=== PATIENT | female | born 1985 | race African-American/Black ===

== ENCOUNTER 2021-06-01 17:03 | Emergency (ER) | payer OTHER, MEDICAID, SELFPAY ==
--- NOTE | ~2021-06-01 | CT_ITS ---
EXAMINATION: CT ABDOMEN AND PELVIS WITH CONTRAST CLINICAL INFORMATION: Right-sided abdominal pain and bloating COMPARISON: None TECHNIQUE: Multidetector volumetric images were obtained from the superior aspect of the liver through the pubic symphysis following administration 85 mL of Omnipaque 350 intravenous contrast. Sagittal and coronal reformatted images were obtained on the technologist's workstation. Oral contrast: No This CT examination was performed using dose optimization techniques as appropriate, variously including the following: *Automated exposure control *Adjustment of mA and/or kV according to patient size (this includes techniques or standardized protocols for targeted exams where dose is matched to indication/reason for exam; i.e. extremities or head) *Use of iterative reconstruction technique DLP: 469 mGy-cm FINDINGS: LUNG BASES: The visualized lung bases are unremarkable. LIVER, GALLBLADDER, AND BILIARY TREE: The liver is normal in size, shape, and attenuation. No focal hepatic lesion or biliary ductal dilatation is present. Gallbladder unremarkable. PANCREAS: Unremarkable. SPLEEN: Unremarkable. ADRENAL GLANDS: Unremarkable. KIDNEYS AND URETERS: The kidneys are normal in size, shape, and attenuation. No hydronephrosis, hydroureter, or calculi seen. No perinephric stranding. BLADDER: Unremarkable. GASTROINTESTINAL TRACT: No intestinal obstruction or inflammation. Moderate stool present throughout the colon. Normal appendix. ABDOMINAL WALL: No significant hernia is appreciated. LYMPH NODES: Normal. VASCULAR: Unremarkable. PELVIC VISCERA: Uterus and adnexa unremarkable. OSSEOUS STRUCTURES: Unremarkable. CT/CT abdomen pelvis w con IMPRESSION: No acute findings within the abdomen or pelvis. Moderate constipation.
[2021-06-01 17:42] VITALS: BP 130/78; PULSE 69; RESP 18; TEMP 36.6; O2SAT 100; BMI 26.6
[2021-06-01 18:39] LABS: Hematocrit 37.4 % (37.0-47.0); Hemoglobin 12.6 g/dl (12.0-16.0); Mean Corpuscular HGB Conc 33.7 g/dl (31.0-35.0); Mean Corpuscular Hemoglobin 28.9 pg (27.0-33.0); Mean Corpuscular Volume 85.8 fL (80.0-98.0); Mean Platelet Volume 11.2 fL (9.4-12.3); Platelet Count 217 X10*3/uL (160-400); Red Blood Count 4.36 X10*6/uL (4.20-5.50); Red Cell Distribution Width 12.6 % (11.0-16.0); WBC ABN SCTR FOR CBC 1
[2021-06-01 18:45] LABS: Appearance Urine CLEAR; Color Urine YELLOW; Glucose Urine UA NEG (NEG); Leukocyte Esterase Urine NEG (NEG); Nitrite Urine NEG (NEG); PH 6.5 (5.0-8.0); Urine Blood NEG (NEG); Urine Ketones NEG (NEG); Urine Protein NEG (NEG-TRACE)
[2021-06-01 18:51] LABS: Alanine Aminotransferase 14 U/L (0-31); Albumin Level 4.2 g/dL (3.5-5.0); Alkaline Phosphatase 58 U/L (39-117); Anion Gap 12 (12-20); Aspartate Amino Transferase 19 U/L (5-31); Bilirubin Total 0.5 mg/dL (0.0-1.0); Blood Urea Nitrogen 7 mg/dL (9-16); Calcium 9.8 mg/dL (8.4-10.2); Carbon Dioxide 27 mmol/L (22-29); Chloride 105 mmol/L (96-108); Creatinine Clr Calc Pharmacy 91.7; Estimated Glomerular Filt Rate > 60; Glucose Random 85 mg/dL (60-115); Potassium 4.2 mmol/L (3.3-5.1); Sodium 140 mmol/L (135-145); Total Protein 7.6 g/dL (6.5-8.0)
[2021-06-01 19:25] LABS: White Blood Count 4.2 X10*3/uL (4.8-10.8)
[2021-06-01 19:27] LABS: Band Neutrophils Percent 1 % (3-5); Eosinophils Percent Manual 1 % (0-4); Large Platelet PRESENT; Lymphocytes Absolute Manual 1.7 X10*3/uL (1.2-4.9); Lymphocytes Percent Manual 40 % (20-40); Monocytes Absolute Manual 0.4 X10*3/uL (0.1-1.2); Monocytes Percent Manual 9 % (2-11); Neutrophils Absolute Manual 2.1 X10*3/uL (2.0-8.3); Neutrophils Percent Manual 49 % (45-73); Platelet Estimate NORMAL (NORMAL); Platelet Morphology Comment NORMAL; RBC Morphology NOTED; Target Cells 1+ (5-14) /OIF
[2021-06-02 00:12] LABS: Lipase 40 U/L (8-78)
--- NOTE | 2021-06-02 00:32 | ED.ABDPAIN ---
HPI - Abdominal Pain General Chief Complaint: Abdominal Pain <MARVIN Pretty Last Filed: 06/02/21 02:05> Stated Complaint: abd pain <MARVIN Pretty Last Filed: 06/02/21 02:05> Time Seen by Provider: 06/01/21 23:36 <MARVIN Pretty Last Filed: 06/02/21 02:05> Source: patient and optometric technologist <MARVIN Pretty Last Filed: 06/02/21 02:05> Mode of arrival: ambulatory <MARVIN Pretty Last Filed: 06/02/21 02:05> Limitations: language barrier <MARVIN Pretty Last Filed: 06/02/21 02:05> History of Present Illness HPI narrative: 36-year-old female previously healthy here with complaints of intermittent abdominal pain which is generalized more focal in the right lower abdomen for the last 2 weeks. no nausea, vomiting, diarrhea. she does have intermittent constipation but moved her bowels yesterday which was normal. <MARVIN Pretty Last Filed: 06/02/21 02:05> Related Data Home Medications: Previous Rx's Medication Instructions Recorded docusate sodium 100 mg capsule 100 mg PO BID #60 cap 06/02/21 (Colace) lactulose 10 gram/15 mL oral 10 g (15 mL) PO DAILY PRN #90 ml 06/02/21 solution polyethylene glycol 3350 17 gram 17 g PO BID #30 ea 06/02/21 oral powder packet (Miralax) <MARVIN Pretty Last Filed: 06/02/21 02:05> Allergies/Adverse Reactions: Allergies Allergy/AdvReac Type Severity Reaction Status Date / Time ibuprofen Allergy Mild Unknown Verified 06/01/21 23:55 Iodinated Contrast Media AdvReac Hives Verified 06/02/21 02:19 <MARVIN Pretty Last Filed: 06/02/21 02:05> Review of Systems Review of Systems Yes all other systems are reviewed and are negative <MARVIN Pretty Last Filed: 06/02/21 02:05> Constitutional: Reports no additional constitutional complaints, Denies body ache(s), Denies chills, Denies fever(s), Denies headache(s) and Denies weakness <Honey Kothari NP - Last Filed: 06/02/21 02:05> Eyes: Reports no additional eye complaints and Denies change in vision <Honey Kothari NP - Last Filed: 06/02/21 02:05> Reports system reviewed and no additional complaints, except as documented, Denies dizziness, Denies headache(s), Denies nasal congestion, Denies nasal discharge and Denies neck pain <Honey Kothari NP - Last Filed: 06/02/21 02:05> Cardiovascular: Reports no additional cardiovascular complaints, Denies chest pain, Denies leg edema and Denies dyspnea <Honey Kothari NP - Last Filed: 06/02/21 02:05> Respiratory: Reports no additional respiratory complaints, Denies cough and Denies dyspnea <Honey Kothari NP - Last Filed: 06/02/21 02:05> Gastrointestinal: Reports no additional gastrointestinal complaints, Reports abdominal pain, Reports constipation, Denies diarrhea, Denies nausea and Denies vomiting <Honey Kothari NP - Last Filed: 06/02/21 02:05> Genitourinary: Reports no additional female genitourinary complaints and Denies urinary incontinence <Honey Kothari NP - Last Filed: 06/02/21 02:05> Musculoskeletal: Reports no additional musculoskeletal complaints, Denies back pain, Denies arthralgias, Denies joint swelling, Denies neck pain, Denies numbness and Denies tingling <Honey Kothari NP - Last Filed: 06/02/21 02:05> Skin/Breast: Reports system reviewed and no additional complaints, except as docu and Denies rash <Honey Kothari NP - Last Filed: 06/02/21 02:05> Reports system reviewed and no additional complaints, except as documented, Denies Abnormal speech present, Denies dizziness, Denies headache(s), Denies numbness, Denies tingling and Denies weakness <Honey Kothari NP - Last Filed: 06/02/21 02:05> Physical Exam Vital Signs: Vital Signs: Last Vital Signs Temp 97.9 F 06/01/21 17:42 Pulse 69 06/01/21 17:42 Resp 18 06/01/21 17:42 BP 130/78 06/01/21 17:42 Pulse Ox 100 06/01/21 17:42 BMI result Body Mass Index 26.6 <Honey Kothari NP - Last Filed: 06/02/21 02:05> Vital Signs: Last Vital Signs Temp 97.9 F 06/01/21 17:42 Pulse 69 06/01/21 17:42 Resp 18 06/01/21 17:42 BP 130/78 06/01/21 17:42 Pulse Ox 100 06/01/21 17:42 BMI result Body Mass Index 26.6 <Cora Zamora MD - Last Filed: 06/02/21 02:47> Const: General: cooperative, healthy appearing, comfortable and no acute distress <Honey Kothari NP - Last Filed: 06/02/21 02:05> Orientation/consciousness: patient oriented x3 <Honey Kothari NP - Last Filed: 06/02/21 02:05> Limitations: no limitations <Honey Kothari NP - Last Filed: 06/02/21 02:05> HENMT: Head: Yes normal to inspection <Honey Kothari NP - Last Filed: 06/02/21 02:05> Ears: hearing grossly normal bilaterally <Honey Kothari NP - Last Filed: 06/02/21 02:05> General nose exam: Normal external nose present <Honey Kothari NP - Last Filed: 06/02/21 02:05> Face and sinus: Yes normal facial exam <Honey Kothari NP - Last Filed: 06/02/21 02:05> Mouth: Normal oral and palatal mucosa present <Honey Kothari NP - Last Filed: 06/02/21 02:05> Throat: Yes posterior oropharynx normal <Honey Kothari NP - Last Filed: 06/02/21 02:05> Eyes: General: appearance normal, both eyes and all related structures <Honey Kothari NP - Last Filed: 06/02/21 02:05> Pupils: Equal, round and reactive pupils present <Honey Kothari NP - Last Filed: 06/02/21 02:05> Neck: Neck: Yes normal visual inspection <Honey Kothari NP - Last Filed: 06/02/21 02:05> Chest: Chest palpation & inspection: normal inspection of the chest <Honey Kothari NP - Last Filed: 06/02/21 02:05> Resp: Effort & Inspection: normal respiratory effort <Honey Kothari NP - Last Filed: 06/02/21 02:05> Auscultation: clear to auscultation bilaterally <Honey Kothari NP - Last Filed: 06/02/21 02:05> Cardio: Rate: regular rate <Honey Kothari NP - Last Filed: 06/02/21 02:05> Rhythm: regular rhythm <Honey Kothari NP - Last Filed: 06/02/21 02:05> Peripheral pulses: Peripheral pulses 2+ throughout <Honey Kothari NP - Last Filed: 06/02/21 02:05> GI: Inspection: Yes normal to inspection <Honey Kothari NP - Last Filed: 06/02/21 02:05> Palpation (GI): Soft to palpation and Tenderness to palpation present (GI) ( Diffusely tender more focal in the right lower quadrant) <Honey Kothari NP - Last Filed: 06/02/21 02:05> Auscultation: normal bowel sounds <Honey Kothari NP - Last Filed: 06/02/21 02:05> Back/Spine/Pelvis: Thoracic/Lumbar Spine: thoracic and lumbar spine normal to inspection <Honey Kothari NP - Last Filed: 06/02/21 02:05> Skin: General skin exam: no rashes or lesions noted <Honey Kothari NP - Last Filed: 06/02/21 02:05> Neuro: General: patient oriented x3, no focal motor deficits and normal sensation to monofilament <Honey Kothari NP - Last Filed: 06/02/21 02:05> Cranial nerves: Yes Equal, round and reactive pupils present <Honey Kothari NP - Last Filed: 06/02/21 02:05> Cognition (Neuro): normal cognition <Honey Kothari NP - Last Filed: 06/02/21 02:05> Speech: No Abnormal speech present <Honey Kothari NP - Last Filed: 06/02/21 02:05> Gait exam (Neuro): Normal gait present <Honey Kothari NP - Last Filed: 06/02/21 02:05> Motor exam (neuro): 5/5 motor strength present throughout <Honey Kothari NP - Last Filed: 06/02/21 02:05> Extrem: General: Yes normal to inspection <Honey Kothari NP - Last Filed: 06/02/21 02:05> Course Course Course Narrative: 36-year-old female here with complaints of right-sided abdominal pain in addition to generalized abdominal pain over the last 2 weeks. On exam has tenderness diffusely but also pain in the right lower quadrant which is more focal with some guarding. Will need labs, UA, CT abdomen and pelvis 0200-Sign out pending ct to dr zamora <oHney Kothari NP - Last Filed: 06/02/21 02:05> MDM - Abdominal Pain Medical Records Attestation: I reviewed the patient's medical records. <Honey Kothari NP - Last Filed: 06/02/21 02:05> Lab Data Attestation: I reviewed the patient's lab results. <Honey Kothari NP - Last Filed: 06/02/21 02:05> Result diagrams: : 06/01/21 18:28 06/01/21 18:28 <Honey Kothari NP - Last Filed: 06/02/21 02:05> Labs: Lab Results 06/01/21 06/01/21 06/01/21 Range/Units 18:28 18:28 18:37 WBC 4.2 L (4.8-10.8) X10*3/uL RBC 4.36 (4.20-5.50) X10*6/uL Hgb 12.6 (12.0-16.0) g/dl Hct 37.4 (37.0-47.0) % MCV 85.8 (80.0-98.0) fL MCH 28.9 (27.0-33.0) pg MCHC 33.7 (31.0-35.0) g/dl RDW 12.6 (11.0-16.0) % Plt Count 217 (160-400) X10*3/uL MPV 11.2 (9.4-12.3) fL Immature Gran % (Auto) Cancelled Neut % (Auto) Cancelled Lymph % (Auto) Cancelled [place] % (Auto) Cancelled Eos % (Auto) Cancelled Baso % (Auto) Cancelled Lymph # (Auto) Cancelled [place] # (Auto) Cancelled Eos # (Auto) Cancelled Baso # (Auto) Cancelled Abs Immat Gran (auto) Cancelled Absolute Neuts (auto) Cancelled Absolute Nucleated RBC 0.000 (0.0-0.012) X10*3/uL Nucleated RBC % (auto) 0.0 (0.0-0.2) /100WBC Neutrophils % (Manual) 49 (45-73) % Band Neutrophils % 1 L (3-5) % Lymphocytes % (Manual) 40 (20-40) % Monocytes % (Manual) 9 (2-11) % Eosinophils % (Manual) 1 (0-4) % Abs Neuts (Manual) 2.1 (2.0-8.3) X10*3/uL Lymphocytes # (Manual) 1.7 (1.2-4.9) X10*3/uL Monocytes # (Manual) 0.4 (0.1-1.2) X10*3/uL Platelet Estimate NORMAL (NORMAL) Large Platelets PRESENT Plt Morphology Comment NORMAL RBC Morphology NOTED Target Cells 1+ (5-14) /OIF Sodium 140 (135-145) mmol/L Potassium 4.2 (3.3-5.1) mmol/L Chloride 105 (96-108) mmol/L Carbon Dioxide 27 (22-29) mmol/L Anion Gap 12 (12-20) BUN 7 L (9-16) mg/dL Creatinine 0.83 (0.5-1.4) mg/dL Estim Creat Clear Calc 91.7 Estimated GFR > 60 Random Glucose 85 (60-115) mg/dL Calcium 9.8 (8.4-10.2) mg/dL Total Bilirubin 0.5 (0.0-1.0) mg/dL AST 19 (5-31) U/L ALT 14 (0-31) U/L Alkaline Phosphatase 58 (39-117) U/L Total Protein 7.6 (6.5-8.0) g/dL Albumin 4.2 (3.5-5.0) g/dL Lipase 40 (8-78) U/L Beta HCG, Quant < 2 mIU/mL Urine Color YELLOW Urine Appearance CLEAR Urine pH 6.5 (5.0-8.0) Ur Specific [place] 1.010 (1.005-1.025) Urine Protein NEG (NEG-TRACE) MG/DL Urine Glucose (UA) NEG (NEG) MG/DL Urine Ketones NEG (NEG) MG/DL Urine Blood NEG (NEG) Urine Nitrite NEG (NEG) Ur Leukocyte Esterase NEG (NEG) <Honey Kothari COUNTERPERSON - Last Filed: 06/02/21 02:05> Lab Results 06/01/21 06/01/21 06/01/21 Range/Units 18:28 18:28 18:37 WBC 4.2 L (4.8-10.8) X10*3/uL RBC 4.36 (4.20-5.50) X10*6/uL Hgb 12.6 (12.0-16.0) g/dl Hct 37.4 (37.0-47.0) % MCV 85.8 (80.0-98.0) fL MCH 28.9 (27.0-33.0) pg MCHC 33.7 (31.0-35.0) g/dl RDW 12.6 (11.0-16.0) % Plt Count 217 (160-400) X10*3/uL MPV 11.2 (9.4-12.3) fL Immature Gran % (Auto) Cancelled Neut % (Auto) Cancelled Lymph % (Auto) Cancelled [place] % (Auto) Cancelled Eos % (Auto) Cancelled Baso % (Auto) Cancelled Lymph # (Auto) Cancelled [place] # (Auto) Cancelled Eos # (Auto) Cancelled Baso # (Auto) Cancelled Abs Immat Gran (auto) Cancelled Absolute Neuts (auto) Cancelled Absolute Nucleated RBC 0.000 (0.0-0.012) X10*3/uL Nucleated RBC % (auto) 0.0 (0.0-0.2) /100WBC Neutrophils % (Manual) 49 (45-73) % Band Neutrophils % 1 L (3-5) % Lymphocytes % (Manual) 40 (20-40) % Monocytes % (Manual) 9 (2-11) % Eosinophils % (Manual) 1 (0-4) % Abs Neuts (Manual) 2.1 (2.0-8.3) X10*3/uL Lymphocytes # (Manual) 1.7 (1.2-4.9) X10*3/uL Monocytes # (Manual) 0.4 (0.1-1.2) X10*3/uL Platelet Estimate NORMAL (NORMAL) Large Platelets PRESENT Plt Morphology Comment NORMAL RBC Morphology NOTED Target Cells 1+ (5-14) /OIF Sodium 140 (135-145) mmol/L Potassium 4.2 (3.3-5.1) mmol/L Chloride 105 (96-108) mmol/L Carbon Dioxide 27 (22-29) mmol/L Anion Gap 12 (12-20) BUN 7 L (9-16) mg/dL Creatinine 0.83 (0.5-1.4) mg/dL Estim Creat Clear Calc 91.7 Estimated GFR > 60 Random Glucose 85 (60-115) mg/dL Calcium 9.8 (8.4-10.2) mg/dL Total Bilirubin 0.5 (0.0-1.0) mg/dL AST 19 (5-31) U/L ALT 14 (0-31) U/L Alkaline Phosphatase 58 (39-117) U/L Total Protein 7.6 (6.5-8.0) g/dL Albumin 4.2 (3.5-5.0) g/dL Lipase 40 (8-78) U/L Beta HCG, Quant < 2 mIU/mL Urine Color YELLOW Urine Appearance CLEAR Urine pH 6.5 (5.0-8.0) Ur Specific [place] 1.010 (1.005-1.025) Urine Protein NEG (NEG-TRACE) MG/DL Urine Glucose (UA) NEG (NEG) MG/DL Urine Ketones NEG (NEG) MG/DL Urine Blood NEG (NEG) Urine Nitrite NEG (NEG) Ur Leukocyte Esterase NEG (NEG) <Cora Zamora MD - Last Filed: 06/02/21 02:47> Discharge Plan Discharge Clinical Impression: Abdominal pain <Honey Kothari NP - Last Filed: 06/02/21 02:05> Instructions: Abdominal Pain (ED) <Honey Kothari NP - Last Filed: 06/02/21 02:05> Prescriptions: New polyethylene glycol 3350 [Miralax] 17 gram powder in packet 17 g PO BID Qty: 30 RF: 0 docusate sodium [Colace] 100 mg capsule 100 mg PO BID Qty: 60 RF: 0 lactulose 10 gram/15 mL solution 10 g PO DAILY PRN (Reason: laxative effect) Qty: 90 RF: 0 <Honey Kothari NP - Last Filed: 06/02/21 02:05> Referrals: Physician,Unknown J [Primary Care Provider] - 2 days <Honey Kothari NP - Last Filed: 06/02/21 02:05> Print Language: Bermudian <Honey Kothari NP - Last Filed: 06/02/21 02:05> [facility] Past Medical History Attestation statement: The following information was validated with the patient. <Honey Kothari NP - Last Filed: 06/02/21 02:05> Source: old records reviewed and nursing notes reviewed <Honey Kothari NP - Last Filed: 06/02/21 02:05> Social History Social History: Social History Advance Directives: No Advance Directives Information Provided: No <Honey Kothari NP - Last Filed: 06/02/21 02:05>
[2021-06-02 00:37] LABS: HCG Quantitative < 2 mIU/mL
[2021-06-02] MEDS: iohexoL 350 MG/ML 100 ML INFUS..BTL 85 ML IV (01:41)
[2021-06-02] MEDS: diphenhydrAMINE HCL 50 MG/ML VIAL 25 MG IVPUSH (02:27)
--- NOTE | 2021-06-02 02:47 | ED_ITS ---
HPI - Abdominal Pain General Chief Complaint: Abdominal Pain Stated Complaint: abd pain Time Seen by Provider: 06/01/21 23:36 Source: patient and motor vehicle parts interpreter Mode of arrival: ambulatory Limitations: language barrier Related Data Previous Rx's Medication Instructions Recorded docusate sodium 100 mg capsule 100 mg PO BID #60 cap 06/02/21 (Colace) lactulose 10 gram/15 mL oral 10 g (15 mL) PO DAILY PRN #90 ml 06/02/21 solution polyethylene glycol 3350 17 gram 17 g PO BID #30 ea 06/02/21 oral powder packet (Miralax) polyethylene glycol 3350 17 17 g PO DAILY 7 Days #119 g 06/02/21 gram/dose oral powder (Miralax) Allergies Allergy/AdvReac Type Severity Reaction Status Date / Time ibuprofen Allergy Mild Unknown Verified 06/01/21 23:55 Iodinated Contrast Media AdvReac Hives Verified 06/02/21 02:19 Physical Exam Vital Signs: Vital Signs: Last Vital Signs Temp 97.9 F 06/01/21 17:42 Pulse 69 06/01/21 17:42 Resp 18 06/01/21 17:42 BP 130/78 06/01/21 17:42 Pulse Ox 100 06/01/21 17:42 BMI result Body Mass Index 26.6 MDM - Abdominal Pain MDM Narrative Medical decision making narrative: CT scan of the abdomen pelvis grossly negative for any acute evidence of abscess perforation obstruction no appendicitis. Repeat abdominal exam is soft nontender. Labs are unremarkable. Will discharge patient home. Positive constipation on CT noted. Will start patient on MiraLax. In stable condition. Urine showed no signs of infection. Lab Data Result diagrams: 06/01/21 18:28 06/01/21 18:28 Labs: Lab Results 06/01/21 06/01/21 06/01/21 Range/Units 18:28 18:28 18:37 WBC 4.2 L (4.8-10.8) X10*3/uL RBC 4.36 (4.20-5.50) X10*6/uL Hgb 12.6 (12.0-16.0) g/dl Hct 37.4 (37.0-47.0) % MCV 85.8 (80.0-98.0) fL MCH 28.9 (27.0-33.0) pg MCHC 33.7 (31.0-35.0) g/dl RDW 12.6 (11.0-16.0) % Plt Count 217 (160-400) X10*3/uL MPV 11.2 (9.4-12.3) fL Immature Gran % (Auto) Cancelled Neut % (Auto) Cancelled Lymph % (Auto) Cancelled [place] % (Auto) Cancelled Eos % (Auto) Cancelled Baso % (Auto) Cancelled Lymph # (Auto) Cancelled [place] # (Auto) Cancelled Eos # (Auto) Cancelled Baso # (Auto) Cancelled Abs Immat Gran (auto) Cancelled Absolute Neuts (auto) Cancelled Absolute Nucleated RBC 0.000 (0.0-0.012) X10*3/uL Nucleated RBC % (auto) 0.0 (0.0-0.2) /100WBC Neutrophils % (Manual) 49 (45-73) % Band Neutrophils % 1 L (3-5) % Lymphocytes % (Manual) 40 (20-40) % Monocytes % (Manual) 9 (2-11) % Eosinophils % (Manual) 1 (0-4) % Abs Neuts (Manual) 2.1 (2.0-8.3) X10*3/uL Lymphocytes # (Manual) 1.7 (1.2-4.9) X10*3/uL Monocytes # (Manual) 0.4 (0.1-1.2) X10*3/uL Platelet Estimate NORMAL (NORMAL) Large Platelets PRESENT Plt Morphology Comment NORMAL RBC Morphology NOTED Target Cells 1+ (5-14) /OIF Sodium 140 (135-145) mmol/L Potassium 4.2 (3.3-5.1) mmol/L Chloride 105 (96-108) mmol/L Carbon Dioxide 27 (22-29) mmol/L Anion Gap 12 (12-20) BUN 7 L (9-16) mg/dL Creatinine 0.83 (0.5-1.4) mg/dL Estim Creat Clear Calc 91.7 Estimated GFR > 60 Random Glucose 85 (60-115) mg/dL Calcium 9.8 (8.4-10.2) mg/dL Total Bilirubin 0.5 (0.0-1.0) mg/dL AST 19 (5-31) U/L ALT 14 (0-31) U/L Alkaline Phosphatase 58 (39-117) U/L Total Protein 7.6 (6.5-8.0) g/dL Albumin 4.2 (3.5-5.0) g/dL Lipase 40 (8-78) U/L Beta HCG, Quant < 2 mIU/mL Urine Color YELLOW Urine Appearance CLEAR Urine pH 6.5 (5.0-8.0) Ur Specific [place] 1.010 (1.005-1.025) Urine Protein NEG (NEG-TRACE) MG/DL Urine Glucose (UA) NEG (NEG) MG/DL Urine Ketones NEG (NEG) MG/DL Urine Blood NEG (NEG) Urine Nitrite NEG (NEG) Ur Leukocyte Esterase NEG (NEG) Discharge Plan Discharge Clinical Impression: Abdominal pain Instructions: Abdominal Pain (ED) Prescriptions: New polyethylene glycol 3350 [Miralax] 17 gram powder in packet 17 g PO BID Qty: 30 RF: 0 docusate sodium [Colace] 100 mg capsule 100 mg PO BID Qty: 60 RF: 0 lactulose 10 gram/15 mL solution 10 g PO DAILY PRN (Reason: laxative effect) Qty: 90 RF: 0 polyethylene glycol 3350 [Miralax] 17 gram/dose powder 17 g PO DAILY 7 Days Qty: 119 RF: 0 Referrals: Physician,Unknown J [Primary Care Provider] - 2 days Print Language: Qatari [facility] Social History Social History Advance Directives: No Advance Directives Information Provided: No
== END 2021-06-02 03:49 | disposition home or self-care (01) ==
PROVIDERS: Nurse Practitioner Family; Emergency Provider Emergency Medicine Emergency Medical Services
DX: R10.9 Unspecified abdominal pain (principal)
CPT/HCPCS: 36415; 74177; 80053; 81003; 83690; 84702; 85007; 85025; 85027; 96374; 99283; 99284; J1200; Q9967

== ENCOUNTER → 2023-09-20 10:15 | Outpatient (BNV) | payer OTHER, SELFPAY | PROVIDERS: Visit Provider Radiology Diagnostic Radiology | DX: Z12.31 Encounter for screening mammogram for malignant neoplasm of breast (principal) | CPT/HCPCS: 77063; 77067 ==

== ENCOUNTER 2023-09-20 10:25 | Outpatient (REF) | payer OTHER, SELFPAY ==
--- NOTE | ~2023-09-20 | MM_ITS ---
EXAMINATION: MM SCREENING DIGITAL BREAST TOMOSYNTHESIS, BILATERAL CLINICAL INFORMATION: Screening. Asymptomatic. COMPARISON: Mammography: Baseline mammogram. TECHNIQUE: Digital breast tomosynthesis is performed in both the craniocaudal and mediolateral oblique views along with computer-aided detection (CAD). Synthesized 2D images are generated from the tomosynthesis. FINDINGS: The breasts are extremely dense, which lowers the sensitivity of mammography (ACR BI-RADS breast composition Category d). There are loosely grouped calcifications in the upper inner and lower inner quadrants of the left breast which warrant additional mammographic imaging with magnification. In the right breast, there are no significant masses, abnormal calcifications, or other abnormalities. MM/MM tomosynthesis screening BI IMPRESSION: Calcifications of the upper inner and lower inner quadrants of the left breast warrants additional mammographic imaging with magnification. ASSESSMENT: BI-RADS BI-RADS 0 - Incomplete: Needs additional Imaging. RECOMMENDATION: Additional views of the left breast. Radiology department staff will contact the patient for additional imaging. Additional Imaging required This examination should not preclude the clinical evaluation of a suspicious palpable abnormality. This patient's information was entered into a reminder system with a target due date for their next mammogram.
== END 2023-09-20 10:26 | disposition home or self-care (01) ==
LOC: HO.MAMMO 10:25
PROVIDERS: Visit Provider Advanced Practice Midwife
DX: Z12.31 Encounter for screening mammogram for malignant neoplasm of breast (principal)
CPT/HCPCS: 77063; 77067

== ENCOUNTER 2023-10-25 12:19 | Outpatient (REF) | payer OTHER, SELFPAY ==
--- NOTE | ~2023-10-25 | MM_ITS ---
EXAMINATION: MM DIAGNOSTIC DIGITAL MAMMOGRAPHY, LEFT CLINICAL INFORMATION: Follow-up a few scattered groups of calcifications left breast seen on screening exam. COMPARISON: Mammography: 09/20/2023 (baseline exam) TECHNIQUE: Digital mammography is performed in the following views: 2-D spot magnification views in the left CC and left LM x2 views. Computer-aided diagnosis was used for this study. FINDINGS: The breasts are extremely dense, which lowers the sensitivity of mammography (ACR BI-RADS breast composition Category d). There are approximately 4 groups of subtle calcifications predominantly in the medial posterior left breast, of which have punctate rounded morphology without significant pleomorphism, loose grouping, and one in the upper posterior left breast which does not meet biopsy criteria/threshold. Linear calcifications in the mid upper left breast are highly suspected to be vascular in nature. Overall, these calcifications have probably benign morphology without linear forms, pleomorphism, branching forms, or suspicious distribution. No additional abnormality left breast seen which can be distinguished from the extremely dense left breast parenchyma. MM/MM added views LT IMPRESSION: No findings suspicious for malignancy left breast. Several loosely grouped foci of calcifications with probably benign morphology as detailed, at least one being likely vascular, and one group not meeting biopsy threshold. These may all represent early vascular calcifications. Six-month interval follow-up recommended to include standard similar magnification views left breast. ASSESSMENT: BI-RADS BI-RADS 3 - Probably benign finding(s) - 6 month follow-up suggested RECOMMENDATION: 6 Month F/U This patient's information was entered into a reminder system with a target due date for their next mammogram.
== END 2023-10-25 12:20 | disposition home or self-care (01) ==
LOC: HO.MAMMO 12:19
PROVIDERS: PCP Advanced Practice Midwife; Visit Provider Advanced Practice Midwife
DX: R92.1 Mammographic calcification found on diagnostic imaging of breast (principal)
CPT/HCPCS: 77065

== ENCOUNTER → 2023-10-25 13:00 | Outpatient (BNV) | payer OTHER, SELFPAY | PROVIDERS: PCP Advanced Practice Midwife; Visit Provider Radiology Diagnostic Radiology | DX: R92.1 Mammographic calcification found on diagnostic imaging of breast (principal) | CPT/HCPCS: 77065 ==

== ENCOUNTER 2023-10-31 10:47 | Outpatient (REF) | payer OTHER, SELFPAY ==
[2023-10-31 12:01] LABS: Hematocrit 36.3 % (37.0-47.0); Hemoglobin 12.4 g/dl (12.0-16.0); Mean Corpuscular HGB Conc 34.2 g/dl (31.0-35.0); Mean Corpuscular Volume 84.8 fL (80.0-98.0); Mean Platelet Volume 11.6 fL (9.4-12.3); Platelet Count 186 X10*3/uL (160-400); Red Blood Count 4.28 X10*6/uL (4.20-5.50); Red Cell Distribution Width 12.6 % (11.0-16.0); White Blood Count 3.7 X10*3/uL (4.8-10.8)
[2023-10-31 12:13] LABS: Estimated Average Glucose 114 mg/dL; Hemoglobin A1c % 5.6 % (<6.0)
[2023-10-31 12:23] LABS: Alanine Aminotransferase 13 U/L (0-31); Albumin Level 4.2 g/dL (3.5-5.0); Alkaline Phosphatase 52 U/L (39-117); Anion Gap 13 (12-20); Aspartate Amino Transferase 15 U/L (5-31); Bilirubin Total 0.5 mg/dL (0.0-1.0); Blood Urea Nitrogen 9 mg/dL (9-16); Calcium 9.9 mg/dL (8.4-10.2); Carbon Dioxide 24 mmol/L (22-29); Chloride 107 mmol/L (96-108); Cholesterol 152 mg/dL (<200); Estimated Glomerular Filt Rate > 60; Glucose Random 84 mg/dL (60-115); HDL Cholesterol 52 mg/dL (>40); LDL Cholesterol Calculated 93 mg/dL (<100); Potassium 4.5 mmol/L (3.3-5.1); Sodium 139 mmol/L (135-145); Total Protein 7.7 g/dL (6.5-8.0); Triglycerides 38 mg/dL (<150)
[2023-10-31 12:38] LABS: Syphilis Screen Nonreactive (Nonreactive)
[2023-10-31 12:41] LABS: HBS Num1 0.44 mIU/mL (0-7.99); HBc Num1 0.14 S/CO (0.00-0.79); HBsAGNum1 0.24 S/CO (0.00-0.99); HIV AB/AG Nonreactive (Nonreactive); HIV Num 1 0.04 S/CO (0.00-0.99); Hepatitis B Core Antibody Nonreactive (Nonreactive); Hepatitis B Surface Antigen Negative (Negative); ~HepC Num1 0.11 S/CO (0.00-0.79); ~Hepatitis B Surface Antibody NONREACTIVE (Nonreactive); ~Hepatitis C Antibody Nonreactive (Nonreactive)
[2023-10-31 12:42] LABS: TSH reflex Free T4 1.22 uIU/mL (0.32-4.0)
== END 2023-10-31 10:48 | disposition home or self-care (01) ==
LOC: HO.HHCL 10:47
PROVIDERS: Visit Provider Student in an Organized Health Care Education/Training Program
DX: Z00.00 Encounter for general adult medical examination without abnormal findings (principal); Z11.4 Encounter for screening for human immunodeficiency virus [HIV]
CPT/HCPCS: 36415; 80053; 80061; 83036; 84443; 85027; 86704; 86706; 86780; 86803; 87340; 87389

== ENCOUNTER 2023-11-15 14:52 | Outpatient (AMB) | payer OTHER, SELFPAY ==
--- NOTE | 2023-11-15 14:56 | MHC.OFFVIS ---
Vital Signs 11/15/23 15:01 Height 5 ft 6 in Weight 176 lb BMI 28.4 BP 123/67 Blood Pressure Location Rt brachial Position Sitting Pulse 80 Intake Visit Reasons: Abnormal mammo- Left breast Intake Note: This patient presents for a breast consult for Abnormal mammogram of the Left breast. Patient c/o; reports no pain, reports no breast mass or lump. 09/20/2023: MM screening 10/25/2023: MM additional views Teachers' Assistant Required: Yes Teachers' Assistant Language: Gas Engine Operator Name: Terry Information Interpreted: non-clinical & clinical Accompanied by: Self / Same As Patient Allergies ibuprofen Allergy (Mild, Verified 11/15/23 15:02) Unknown Iodinated Contrast Media Adverse Reaction (Verified 11/15/23 15:02) Hives Medication List - Last Reviewed 11/15/23 by ALEX Brennan citalopram 40 mg PO DAILY docusate sodium (Colace) 100 mg PO BID hydroxyzine HCl mg PO lactulose 10 grams (15 mL) PO DAILY PRN polyethylene glycol 3350 (Miralax) 17 grams PO BID polyethylene glycol 3350 (Miralax) 17 grams PO DAILY 7 days HPI HPI Abnormal mammo- Left breast: Details: 38-year-old female referred for left breast calcifications. She had undergone a screening mammogram last August, and this had shown calcifications on the left breast. She was therefore brought in for additional views last 10/25/2023. This did show several loosely grouped foci of calcifications in the left breast that are likely benign. These calcifications did not appear to meet threshold for biopsy. A six-month follow-up repeat mammogram had been recommended by the radiologist. She denies any palpable breast masses. She denies any nipple or skin changes Her menarche was at the age of 13. Her 1st was at age of 20. She had 3 pregnancies but had 1 live . She says that she had a maternal aunt who apparently had breast cancer in her 50s. [facility] Medical History Breast calcification, left Surgical History Hx of surgical procedure History of varicose vein procedure (~2019) Family History Maternal Aunt Breast cancer Female Reproductive History Menstrual Age of Menarche: 13 Total pregnancies: 1 Full term: 1 Review of Systems Const Denies chills and Denies fever(s) Card Denies chest pain, Denies dyspnea and Denies dyspnea on exertion Resp Denies cough, Denies dyspnea and Denies dyspnea on exertion GI Denies hematochezia and Denies change in bowel habits Denies hematuria Musc Denies back pain and Denies limited range of motion Neuro Denies focal weakness and Denies convulsions Psych Denies depression and Denies mood swings Physical Exam Vital Signs: Last Vital Signs Pulse 80 11/15/23 15:01 BP 123/67 11/15/23 15:01 BMI result Body Mass Index 28.4 Const General: comfortable and no acute distress Orientation/consciousness: patient oriented x3 Neck Neck: Yes no lymphadenopathy Chest Other: No palpable breast masses, no nipple or skin changes, no axillary lymphadenopathy Resp Auscultation: clear to auscultation bilaterally Cardio Rhythm: regular rhythm GI Palpation (GI): Soft to palpation, nontender and no guarding Neuro General: patient oriented x3 Assessment & Plan Assessment & Plan (1) Breast calcification, left: Code(s): R92.1 - Mammographic calcification found on diagnostic imaging of breast Category: Medical Plan: She had loosely grouped mostly have calcifications in the left breast that appeared to be benign or vascular in origin and do not meet threshold for biopsy. A six-month follow-up had been recommended for a repeat mammogram for her. I explained this finding to her and I assured her about this. I will see her again in the office after next mammogram in 6 months. Coding Level of Care Code New Pt Level 3 (45852) Diagnoses Breast calcification, left R92.1
[2023-11-15 15:01] VITALS: BP 123/67; PULSE 80; BMI 28.4
== END 2023-11-15 15:16 | disposition home or self-care (01) ==
PROVIDERS: PCP Student in an Organized Health Care Education/Training Program; Visit Provider Surgery
DX: R92.1 Mammographic calcification found on diagnostic imaging of breast (principal)
CPT/HCPCS: 99203

== ENCOUNTER → 2023-11-15 14:52 | Outpatient (BNVA) | payer OTHER, SELFPAY | PROVIDERS: PCP Advanced Practice Midwife; Visit Provider Surgery | DX: R92.1 Mammographic calcification found on diagnostic imaging of breast (principal) | CPT/HCPCS: 99202 ==

== ENCOUNTER 2024-03-04 15:09 | Outpatient (REF) | payer OTHER, SELFPAY ==
[2024-03-04 17:21] LABS: Alanine Aminotransferase 11 U/L (0-31); Albumin Level 4.1 g/dL (3.5-5.0); Alkaline Phosphatase 56 U/L (39-117); Aspartate Amino Transferase 16 U/L (5-31); Bilirubin Direct 0.1 mg/dL (0.0-0.5); Bilirubin Total 0.3 mg/dL (0.0-1.0); Total Protein 7.3 g/dL (6.5-8.0)
[2024-03-05 04:15] LABS: Syphilis Screen Nonreactive (Nonreactive)
[2024-03-05 04:39] LABS: ~HepC Num1 0.12 S/CO (0.00-0.79); ~Hepatitis C Antibody Nonreactive (Nonreactive)
[2024-03-05 13:33] LABS: HIV RNA PCR Qn Copies NOT DETECTED copies/mL (NOT DETECTED); HIV RNA PCR Qn Log Copies NOT DETECTED (NOT DETECTED)
== END 2024-03-04 15:10 | disposition home or self-care (01) ==
LOC: HO.HHCL 15:09
PROVIDERS: Visit Provider Student in an Organized Health Care Education/Training Program
DX: Z79.899 Other long term (current) drug therapy (principal)
CPT/HCPCS: 36415; 80076; 86780; 86803; 87536

== ENCOUNTER 2024-03-08 13:21 | Outpatient (REF) | payer OTHER, SELFPAY ==
[2024-03-08 15:10] LABS: Bacterial Vaginosis PCR NEGATIVE (Negative); Candida Group PCR NOT DETECTED (Not Detect); Candida glab krusei PCR NOT DETECTED (Not Detect); Trichomonas vaginalis PCR NOT DETECTED (Not Detect)
[2024-03-08 15:42] LABS: CT PCR NOT DETECTED (Not Detect.); NG PCR NOT DETECTED (Not Detect.)
== END 2024-03-08 13:22 | disposition home or self-care (01) ==
LOC: HO.HHCLNP 13:21
PROVIDERS: Visit Provider Internal Medicine
DX: N89.8 Other specified noninflammatory disorders of vagina (principal)
CPT/HCPCS: 0352U; 87491; 87591

== ENCOUNTER 2024-03-29 14:40 | Outpatient (REF) | payer OTHER, SELFPAY ==
[2024-03-31 09:39] LABS: CT PCR NOT DETECTED (Not Detect.); NG PCR NOT DETECTED (Not Detect.)
[2024-04-01 01:57] LABS: TS Negative Control Passed; TS Panel A 487; TS Panel B 165; TS Positive Control Passed; TSpotTB Positive (Negative)
[2024-04-01 22:48] LABS: HIV RNA PCR Qn Copies NOT DETECTED copies/mL (NOT DETECTED); HIV RNA PCR Qn Log Copies NOT DETECTED (NOT DETECTED)
== END 2024-03-29 14:41 | disposition home or self-care (01) ==
LOC: HO.HHCL 14:40
PROVIDERS: Referring Provider Student in an Organized Health Care Education/Training Program; Visit Provider Nurse Practitioner Primary Care
DX: Z00.00 Encounter for general adult medical examination without abnormal findings (principal); Z79.899 Other long term (current) drug therapy
CPT/HCPCS: 36415; 86481; 87491; 87536; 87591

== ENCOUNTER 2024-04-01 12:25 | Outpatient (REF) | payer OTHER, SELFPAY ==
--- NOTE | ~2024-04-01 | XR_ITS ---
EXAMINATION: XR CHEST CLINICAL INFORMATION: Positive TB test COMPARISON: None available. TECHNIQUE: 2 views of the chest were obtained. FINDINGS: No significant abnormality is noted involving the heart, lungs, mediastinum, bony thorax or soft tissues. XR/XR chest 2V IMPRESSION: Clear lungs. Electronically signed by: Didi Andujar MD 04/01/2024 01:14 PM EDT RP
== END 2024-04-01 12:26 | disposition home or self-care (01) ==
LOC: HO.HHCX 12:25
PROVIDERS: Visit Provider Nurse Practitioner Primary Care
DX: R76.11 Nonspecific reaction to tuberculin skin test without active tuberculosis (principal)
CPT/HCPCS: 71046

== ENCOUNTER 2024-04-22 10:21 | Outpatient (REF) | payer OTHER, SELFPAY ==
[2024-04-25 05:03] LABS: TS Negative Control Passed; TS Panel A 389; TS Panel B 86; TS Positive Control Passed; TSpotTB Positive (Negative)
== END 2024-04-22 10:22 | disposition home or self-care (01) ==
LOC: HO.HHCL 10:21
PROVIDERS: Visit Provider Student in an Organized Health Care Education/Training Program
DX: Z11.1 Encounter for screening for respiratory tuberculosis (principal)
CPT/HCPCS: 36415; 86481

== ENCOUNTER 2024-05-01 10:21 | Outpatient (REF) | payer OTHER, SELFPAY ==
--- NOTE | ~2024-05-01 | MM_ITS ---
EXAMINATION: MM DIAGNOSTIC DIGITAL MAMMOGRAPHY, LEFT CLINICAL INFORMATION: Diagnostic exam; six-month follow-up for left breast calcifications, approximately 3 groups best appreciated on the CC projection medially. COMPARISON: Mammography: 10/25/2023, 09/20/2023 (BI-RADS 0). TECHNIQUE: Digital mammography is performed in the following views: 2-D spot magnification left CC x1 and left LM x2. Computer-aided diagnosis was used for this study. FINDINGS: The breasts are extremely dense, which lowers the sensitivity of mammography (ACR BI-RADS breast composition Category d). 3 groups of discrete calcifications again noted in the medial superior left breast, mid to posterior one third, and a solitary group in the inferior and medial left breast similar depth. All groups are stable, with the exception of the mid group (in between the other groups on the CC projection), which has a few more calcifications present, however they have amorphous morphology on the CC projection, and appeared to teacup/layer on the lateral projection suggesting milk of calcium. There has been no aggressive change of these probably benign findings. No discrete new suspicious abnormalities. MM/MM diagnostic mammo unilat LT IMPRESSION: -3 predominantly groups of calcifications left breast show no aggressive changes and demonstrate layering on the LM images, highly suggestive of milk of calcium. These remain probably benign, and additional six-month interval follow-up left breast magnification views recommended to establish a one-year stability, when the patient is due for routine screening. ASSESSMENT: BI-RADS BI-RADS 3 - Probably benign finding(s) - 6 month follow-up suggested RECOMMENDATION: 6 Month F/U This patient's information was entered into a reminder system with a target due date for their next mammogram. Electronically signed by: Pan Vargas MD 05/01/2024 11:40 AM [facility]
== END 2024-05-01 10:22 | disposition home or self-care (01) ==
LOC: HO.MAMMO 10:21
PROVIDERS: PCP Student in an Organized Health Care Education/Training Program; Visit Provider Advanced Practice Midwife
DX: R92.1 Mammographic calcification found on diagnostic imaging of breast (principal)
CPT/HCPCS: 77062; 77065

== ENCOUNTER → 2024-05-01 11:00 | Outpatient (BNV) | payer OTHER, SELFPAY | PROVIDERS: PCP Student in an Organized Health Care Education/Training Program; Visit Provider Radiology Diagnostic Radiology | DX: R92.1 Mammographic calcification found on diagnostic imaging of breast (principal) | CPT/HCPCS: 77061; 77065 ==

== ENCOUNTER 2024-05-17 12:25 | Outpatient (REF) | payer OTHER, SELFPAY ==
[2024-05-17 13:07] LABS: MANUAL DIFF FLAG NO
[2024-05-17 13:17] LABS: Basophils Absolute Auto 0.1 X10*3/uL (0.0-0.2); Basophils Percent Auto 1.1 % (0-2); Eosinophils Absolute Auto 0.2 X10*3/uL (0.0-0.4); Eosinophils Percent Auto 4.5 % (0-4); Hematocrit 35.8 % (37.0-47.0); Hemoglobin 12.1 g/dl (12.0-16.0); Imm Gran Abs Auto 0.01 X10*3/uL (0.00-0.03); Imm Gran Pct Auto 0.2 % (0.0-0.4); Lymphocytes Absolute Auto 1.7 X10*3/uL (1.2-4.9); Lymphocytes Percent Auto 39.4 % (20-40); Mean Corpuscular HGB Conc 33.8 g/dl (31.0-35.0); Mean Corpuscular Hemoglobin 28.9 pg (27.0-33.0); Mean Corpuscular Volume 85.4 fL (80.0-98.0); Mean Platelet Volume 11.4 fL (9.4-12.3); Monocytes Absolute Auto 0.5 X10*3/uL (0.1-1.2); Monocytes Percent Auto 10.4 % (2-11); Neutrophils Percent Auto 44.4 % (45-73); Platelet Count 225 X10*3/uL (160-400); Red Blood Count 4.19 X10*6/uL (4.20-5.50); Red Cell Distribution Width 12.5 % (11.0-16.0); White Blood Count 4.4 X10*3/uL (4.8-10.8)
[2024-05-17 13:50] LABS: Alanine Aminotransferase 12 U/L (0-31); Alkaline Phosphatase 57 U/L (39-117); Anion Gap 11 (12-20); Aspartate Amino Transferase 21 U/L (5-31); Bilirubin Total 0.3 mg/dL (0.0-1.0); Blood Urea Nitrogen 10 mg/dL (9-16); Calcium 9.2 mg/dL (8.4-10.2); Carbon Dioxide 24 mmol/L (22-29); Chloride 106 mmol/L (96-108); Estimated Glomerular Filt Rate > 60; Glucose Random 76 mg/dL (60-115); Potassium 4.2 mmol/L (3.3-5.1); Sodium 137 mmol/L (135-145); Total Protein 7.1 g/dL (6.5-8.0)
== END 2024-05-17 12:26 | disposition home or self-care (01) ==
LOC: HO.HHCL 12:25
PROVIDERS: Visit Provider Student in an Organized Health Care Education/Training Program
DX: Z22.7 Latent tuberculosis (principal)
CPT/HCPCS: 36415; 80053; 85025

== ENCOUNTER 2024-07-16 10:39 | Outpatient (REF) | payer SELFPAY ==
--- OUTSIDE RECORDS SUMMARY | 2024-07-16 12:08 | XMS_ITS | Encounter Summary ---
Author Organization [employer] Address [address] [place] [address] Care Team Providers Care Mushroom Laborer Name Role Phone Geraldine Hess MD Primary Care Pro vider Mook Singh Unavailable Unavailable Encounter Details Date Type Department Care Team (Latest Contact Info) Description 06/28/2024 Travel Social History Tobacco Use Types Packs/Day Years Used Date Smoking Tobacco: Never Passive Smoke Exposure: Never Smokeless Tobacco: Never Alcohol Use Standard Drinks/Week Comments Not Currently 0 (1 standard drink = 0.6 oz pur e alcohol) social Depression Answer Date Recorded Patient Health Questionnaire-9 Score 9 12/07/2023 Patient Health Questionnaire-9 Score 9 12/07/2023 Last PHQ-9: Questionnaire Data Not on file 0 12/07/2023 Housing Stability Answer Date Recorded What is your housing situation today? I have bogdanyasmin kwong 04/24/[address] you li ve. Do you have problems with any of the following? None of the above 04/24/2023 Food Insecurity Answer Date Recorded Within the past 12 months, y ou worried that your food would run out before you got money to buy more: Sometimes True 2022 Within the past 12 months,th e food you bought just didn't last and you didn't have enough money to get more: Sometimes True 04/24/2023 Transportation Answer Date Recorded In the past 12 months, has l ack of transportation kept you from medical appts, meetings, work or from getting things needed for daily living? No 04/24/2023 Utilities Answer Date Recorded In the past 12 months, has t he electric, gas, oil or water company threatened to shut off services in your home? No 04/24/2023 Depression Answer Date Recorded Patient Health Questionnaire-2 Score 2 12/07/2023 Comments No Sex and Gender Information Value Date Recorded Sex Assigned at Female 04/25/2022 10:36 AM EDT Legal Sex Female 10:36 AM EDT Gender Identity Female 04/25/2022 10:36 AM EDT Sexual Orientation Straight 04/25/2022 10 :36 AM EDT documented as of this encounter Plan of Treatment Upcoming Encounters Date Type Department Care Team (Late st Contact Info) Description 08/21/2024 9:00 AM EST Office Visit [facility] MEDICINE [address] [place] [address] Sushma Hogan CNM [address] [place] [address] documented as of this encounter Visit Diagnoses Not on filedocumented in this encounter Additional Health Concerns Assessment Noted Time PHQ-9 Depression Total Score: 9 12/07/19 24 3:08 PM EDT documented as of this encounter Care Teams Mushroom Laborer Relationship Specialty Start Date End Date Geraldine Hess MD [address] [place] [phone] PCP - General Internal Medicine 12/07/22 Mook Singh FNP [address] [place] [address] Nurse Practitioner Family Medicine 05/22/23 documented as of this encounter
--- OUTSIDE RECORDS SUMMARY | 2024-07-16 12:08 | XMS_ITS | Encounter Summary ---
Author Organization [employer] [facility] Address [address] [place] [id number] Care Team Providers Care Environmental Health Inspector Name Role Phone Geraldine Hess MD Primary Care Pro vider Mook Singh Unavailable Unavailable Reason for Visit * Reason Onset Date Comments Nurse Triage 07/04/2024 Encounter Details Date Type Department Care Team ([facility] st Contact Info) Description 07/04/2024 Telephone [facility] MEDICINE [address] [place], [place] [phone] Geraldine Hess MD [address] [place], [place] [phone] Nurse Triage Social History Tobacco Use Types Packs/Day Years [...] is your housing situation today? I have bogdan kwong 04/24/[address] you [...] AM EDT documented as of this encounter Miscellaneous Notes * Telephone Encounter - Ansley Cuellar RN - 07/04/2024 1:55 PM EST Call returned to Robert Croft to triage below. Reports having cough, chest congestion and runny nose x [address] and [place]. No fever. Denies any home kit for COVID-19. Deniesany sick contacts. Denies any white patches on back of throat. Pt advised of disposition, agrees toseek [facility] for exam as not available to take Sick on site today with red team provider. Reviewed homecare advise, ER precautions and reasons to call back. Protocol Used: COVID-19 - Diagnosed or Suspected (Adult) Protocol-Based Disposition: Home Care Positive Triage Question: * COVID-19 infection suspected and mild symptoms (cough, fever, or others) and has not gotten tested yet * All higher-acuity triage questions were negative Care Advice Discussed: * Reassurance and Education - Suspected COVID-19 and Testing Needed * Cough Medicines * Pain and Fever Medicines * Reasons To Call Back - Fever over 103 F (39.4 C) - Chest pain or difficulty breathing occurs - You become worse * Telephone Encounter - Tr Calle - 07/04/2024 1:44 PM EST Symptoms: Chest Congestion, Runny Nose, Cough Outcome: Talk to a nurse or provider within 15 minutes Reason: Any trouble breathing through the mouth The caller accepted this outcome. documented in this encounter Plan of Treatment Upcoming Encounters Date Type Department Care Team (Late st Contact Info) Description 08/21/2024 9:00 AM EST Office Visit [facility] MEDICINE [address] [place] [address] Sushma Hogan CNM [address] [place], [place] [phone] documented as of this encounter Visit Diagnoses Not on filedocumented in this encounter Additional Health Concerns Assessment Noted Time PHQ-9 Depression Total Score: 9 12/07/19 24 3:08 PM EDT documented as of this encounter Care Teams Environmental Health Inspector Relationship Specialty Start Date End Date Geraldine Hess MD [address] [place] [phone] PCP - General Internal Medicine 12/07/22 Mook Singh FNP [address] [place] [phone] Nurse Practitioner Family Medicine 05/22/23 documented as of this encounter
--- OUTSIDE RECORDS SUMMARY | 2024-07-16 12:08 | XMS_ITS | Encounter Summary ---
Author Organization [employer] Address [address] [place] [address] [address] [place] [address] Care Team Providers Care Glassware Verifier Name Role Phone Geraldine Hess MD Primary Care Pro vider Mook Singh Unavailable Unavailable Reason for Visit * Reason Onset Date Comments Injectable PrEP communication 07/12/2024 Encounter Details Date Type Department Care Team ([facility] st Contact Info) Description 07/12/2024 Telephone [facility] MEDICINE [address] [place] [address] Gita Gambino, WHITNEY [address] [place] [address] Injectable PrEP communication Social History Tobacco Use Types Packs/Day Years [...] encounter Miscellaneous Notes * Telephone Encounter - Gita Gambino RN - 07/12/2024 2:57 PM EST [facility] pharmacy [phone] called to find out if pt is continuing Apretude or not. 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 Advised they can cancel Rx for now and we will reach out it if pt wants to continue when she is done with TB treatment. Dr Urbano note 05/27/24: Will Start Truvada and Rifampin around time of scheduled next apt for cabotegravir so aprox 05/27/2024. So that they she will not get Apretude inj After pt completes LTBI tx then can safely change back to Apretude for PREP ideally couple of days after completed Rifampin so aprox will need to resume Apretude in 09/28/2024 documented in this encounter Plan of Treatment Upcoming Encounters Date Type Department Care Team (Late st Contact Info) Description 08/21/2024 9:00 AM EST Office Visit [facility] MEDICINE [address] [place] [address] Sushma Hogan CNM [address] [place] [address] documented as of this encounter Visit Diagnoses Not on filedocumented in this encounter Additional Health Concerns Assessment Noted Time PHQ-9 Depression Total Score: 9 12/07/19 24 3:08 PM EDT documented as of this encounter Care Teams Glassware Verifier Relationship Specialty Start Date End Date Geraldine Hess MD [address] [place], [place] [phone] PCP - General Internal Medicine 12/07/22 Mook Singh FNP [address] [place] [address] Nurse Practitioner Family Medicine 05/22/23 documented as of this encounter
--- OUTSIDE RECORDS SUMMARY | 2024-07-16 12:08 | XMS_ITS | Encounter Summary ---
Author Organization [employer] Address [address] [place] [address] Care Team Providers Care Host Coordinator Name Role Phone Geraldine Hess MD Primary Care Pro vider Mook Singh Unavailable Unavailable Reason for Visit * Reason Onset Date Comments Appointment Request 06/02/2023 Encounter Details Date Type Department Care Team ([facility] Contact Info) Description 06/02/2023 Telephone [facility] MEDICINE [address] [place], [place] [phone] Geraldine Hess MD [address] [place], [place] [phone] Appointment Request Social History Tobacco Use Types Packs/Day Years Used Date Smoking Tobacco: Never Passive Smoke Exposure: Never Smokeless Tobacco: Never Alcohol Use Standard Drinks/Week Comments Never 0 (1 standard drink = 0.6 oz pur e alcohol) Depression Answer Date Recorded Patient Health Questionnaire-9 Score 12 06/01/2023 Patient Health Questionnaire-9 Score 12 06/01/2023 Last PHQ-9: Questionnaire Data Not on file 1 08/02/2022 Housing Stability Answer Date Recorded What is [...] Date Recorded Patient Health Questionnaire-2 Score 2 06/01/2023 Comments Unknown Sex and Gender Information Value Date Recorded Sex Assigned at Female 04/25/2022 10:36 AM EDT Legal Sex Female 10:36 AM EDT Gender Identity Female 04/25/2022 10:36 AM EDT Sexual Orientation Straight 04/25/2022 10 :36 AM EDT documented as of this encounter Miscellaneous Notes * Telephone Encounter - Sharath Price - 06/02/2023 10:44 AM EST Tc from pt requesting TP with New Pcp. Hot Air Furnace Installer Repairer does see recall and tried scheduling but no availableslot was found. Please contact pt @ [phone] Arabic Speaker documented in this encounter Plan of Treatment Upcoming Encounters Date Type Department Care Team (Late st Contact Info) Description 08/21/2024 9:00 AM EST Office Visit [facility] MEDICINE [address] [place] [address] Sushma Hogan CNM [address] [place] [address] documented as of this encounter Visit Diagnoses Not on filedocumented in this encounter Additional Health Concerns Assessment Noted Time PHQ-9 Depression Total Score: 12 023 1:55 PM EST documented as of this encounter Care Teams Host Coordinator Relationship Specialty Start Date End Date Geraldine Hess MD [address] [place] [address] PCP - General Internal Medicine 12/07/22 Mook Singh FNP [address] [place] [address] Nurse Practitioner Family Medicine 05/22/23 documented as of this encounter
--- OUTSIDE RECORDS SUMMARY | 2024-07-16 12:08 | XMS_ITS | Encounter Summary ---
Author Organization [employer] Address [address] [place] [address] Care Team Providers Care Bark Fitter Name Role Phone Geraldine Hess MD Primary Care Pro vider Mook Singh Unavailable Unavailable Reason for Visit * Reason Comments Med Refill Encounter Details Date Type Department Care Team ([facility] st Contact Info) Description 07/10/2024 Refill [facility] MEDICINE [address] [place], [place] [phone] Geraldine Hess MD [address] [place] [address] High risk heterosexual behavior Social History Tobacco Use Types Packs/Day Years [...] your housing situation today? I have bogdan varghese 04/24/[address] you li [...] Description 08/21/2024 9:00 AM EST Office Visit [facility] MEDICINE [address] [place] [address] Sushma Hogan CNM [address] [place] [address] documented as of this encounter Visit Diagnoses Diagnosis High risk heterosexual behavior documented in this encounter Additional Health Concerns Assessment Noted Time PHQ-9 Depression Total Score: 9 12/07/19 24 3:08 PM EDT documented as of this encounter Care Teams Bark Fitter Relationship Specialty Start Date End Date Geraldine Hess MD [address] [place] [address] PCP - General Internal Medicine 12/07/22 Mook Singh FNP [address] [place] [address] Nurse Practitioner Family Medicine 05/22/23 documented as of this encounter
--- OUTSIDE RECORDS SUMMARY | 2024-07-16 12:08 | XMS_ITS | Clinical Summary ---
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 James CNM Ordering Physician: GREGORY JAMES CNM Results: 3.6MProbably Benign Finding - Short 6 M F/U Suggested Date of Service: 05/01/24Follow Up: 6 Month F/U Procedure(s): MM diagnostic mammo unilat Accession Number(s): [id number] cc: Geraldine Hess MD; GREGORY JAMES CNM EXAMINATION: MM DIAGNOSTIC DIGITAL MAMMOGRAPHY, LEFT CLINICAL INFORMATION: Diagnostic exam; six-month follow-up for left breast calcifications, approximately 3 groups best appreciated on the CC projection medially. COMPARISON: Mammography: 10/25/2023, 09/20/2023 (BI-RADS 0). TECHNIQUE: Digital mammography is performed in the following views: 2-D spot magnification left CC x1 and left LM x2. Computer-aided diagnosis was used for this study. FINDINGS: The breasts are extremely dense, which lowers the sensitivity of mammography (ACR BI-RADS breast composition Category d). 3 groups of discrete calcifications again noted in the medial superior left breast, mid to posterior one third, and a solitary group in the inferior and medial left breast similar depth. All groups are stable, with the exception of the mid group (in between the other groups on the CC projection), which has a few more calcifications present, however they have amorphous morphology on the CC projection, and appeared to teacup/layer on the lateral projection suggesting milk of calcium. There has been no aggressive change of these probably benign findings. No discrete new suspicious abnormalities. MM/MM diagnostic mammo unilat LT IMPRESSION: -3 predominantly groups of calcifications left breast show no aggressive changes and demonstrate layering on the LM images, highly suggestive of milk of calcium. These remain probably benign, and additional six-month interval follow-up left breast magnification views recommended to establish a one-year stability, when the patient is due for routine screening. ASSESSMENT: BI-RADS BI-RADS 3 - Probably benign finding(s) - 6 month follow-up suggested RECOMMENDATION: 6 Month F/U This patient's information was entered into a reminder system with a target due date for their next mammogram. Electronically signed by: Pan Vargas MD 05/01/2024 11:40 AM [facility] Dictated By: Pan Vargas MD Signed By: <Electronically signed by Pan Vargas MD in OV> 05/01/24 1140 DD/ 1040 TD/TT: 05/01/24 1050 Shop Girl: Gregory SOUZA IMG BI PROCEDURES Final R esult * (ABNORMAL) T-SPOT??.TB (04/22/2024 10:25 AM EDT) T Spot TB Positive( A) Negative [facility] Comment: Diagnosing or excluding tuberculosis (TB) disease andassessing the probability of latent TB infection (LTBI)requires a combination of epidemiological, historical,medical and diagnostic findings that should be takeninto consideration when interpreting T-SPOT.TB testresults. A positive test result does not rule in activeTB disease caused by Mycobacterium tuberculosis(M. tuberculosis); active TB disease should beconfirmed by other tests such as sputum smear andculture, PCR, and chest radiography.Uncommonly, a positive T-SPOT.TB result may be due toinfection with other Mycobacterium species includingM. kansasii, M. szulgai, M. gordonae, or M. marinum.Alternative tests would be required if these infectionsare suspected.The T-SPOT.TB test is qualitative and results arereported as positive, borderline, or negative, giventhat the test controls perform as expected. In linewith the Centers for Disease Control and Prevention's2010 recommendation to report quantitative measurementsalongside the qualitative result, the laboratoryprovides spot counts for informational purposes only.The T-SPOT.TB test should not be interpreted as aquantitative test. TS PANEL A 389 [facility] TS PANEL B 86 [facility] Negative Control Passed [facility] Positive Control Passed [facility] Comment:For additional infor mation, please refer tohttp://education.[employer]/faq/VXH212(This link is being provided for informational/educational purposes only.)THIS TEST WAS PERFORMED AT:[facility] [address] [place] [address]GWCXXJULUCI CARSON MD,PHD 04/22/2024 10:2 5 AM EDT 04/22/2024 11:10 AM EDT Geraldine Hein MD LAB BLOOD ORDERAB LES Final Result [facility] [address] [place] [address] [phone] * HIV-1 RNA, Quantitative, Real-Time PCR (03/29/2024 2:47 PM EDT) HIV RNA PCR Qn Copies NOT DETECTED NOT DETECTED copies/mL [facility] HIV RNA PCR Qn Log Copies NOT DETECTED NOT DETECTED [facility] Comment:Result Units: Log co pies/mLThis test was performed using Real-Time Polymerase ChainReaction.Reportable Range: 20 copies/mL to 10,000,000 copies/mL(1.30 log copies/mL to 7.00 log copies/mL).THIS TEST WAS PERFORMED AT:[facility] [address] [id number] RHOADES MD 03/29/2024 2:47 PM EDT 03/29/2024 3:56 PM EDT [facility] LAB BLOOD ORDERABLES Final Resul t Performing Organization Address [facility] Co de Phone Number [facility] [address] [place] [phone] * Hepatitis C Antibody with Reflex to HCV, RNA, Quantitative, Real-Time PCR (03/04/2024 3:14 PM EDT) Hepatitis C Antibody Nonreactive Nonreactive [facility] Comment:Antibodies to HCV no t detected; does not exclude early acuteHCV infection. 03/04/2024 3:14 PM EDT 03/04/2024 4:28 PM EDT Geraldine Hein MD LAB BLOOD ORDERAB LES Final Result Performing Organization Address [facility] Co de Phone Number [facility] [address] [place] [phone] * THINPREP PAP (12/07/2020 5:16 PM EDT) Clinical Information: None given [facility] COMMENT SEE COMMENT [facility] Comment: EXPLANATORY NOTE: ? The Pap is a screening test for cervical cancer. It is ?? not a diagnostic test and is subject to false negative ?? and false positive results. It is most reliable when a ?? satisfactory sample, regularly obtained, is submitted ?? with relevant clinical findings and history, and when ?? the Pap result is evaluated along with historic and ?? current clinical information. ?? Liner Assembler : SEE COMMENT [facility] Comment: JH CT(ASCP) CT screening location: [address] ??[address] Interpretation/R esult: Negative for intraepithelial lesion or malignancy. [facility] LMP: NONE GIVEN [facility] Prev. BX: NONE [facility]IVEN [facility] Prev. PAP: NONE [facility]IVEN [facility] SOURCE: None given [facility] Statement Of Adequacy: SEE COMMENT [facility] Comment: Satisfactory for evaluation. Endocervical/transformation zone component absent. Age and/or menstrual status not provided 12/07/2020 5:16 PM EDT Dianna Clementcricket [facility] LAB PATHOLOGY ORDERABLES Final Result Performing Organization Address [facility] de Phone Number [facility] [address] * HPV mRNA E6/E7 (12/07/2020 5:16 PM EDT) HPV nRNA E6/E7 Not Detected Not Detected [facility] Comment: Methodology: Adjunct Mathematics Instructor-Mediated Amplification This assay detects E6/E7 viral messenger RNA (mRNA) from 14 high-risk HPV types (16,18,31,33,35,39,45,51,52,56,58,59,66,68). ? The analytical performance characteristics of this assay have been determined by [employer]. The modifications have not been cleared or approved by the FDA. This assay has been validated pursuant to the CLIA regulations and is used for clinical purposes. ?? For additional information, please refer to http://education.[employer]/faq/WTW070d2 (This link if provided for information/ educational purposes only.) NO COLLECTION DATE RECEIVED. WE HAVE USED THE DATE THE SPECIMEN WAS RECEIVED BY THIS LABORATORY THE COLLECTION DATE. IF THIS IS INCORRECT, PLEASE CONTACT CLIENT SERVICES. PHONE NUMBER: ?? 12/07/2020 5:16 PM EDT Dianna Clementcricket [facility] LAB BLOOD ORDERABLES Final Res ult Performing Organization Address [facility] de Phone Number [facility] [address] from Last 3 Months or Most Recently Relevant to Health Maintenance Insurance * Guarantor: Robert Mcgill Account Type Relation to Patient Date of Phone Billing Address Personal/Family Self [address] [place] [address] [facility]SN PARTIAL DENT[facility] - HSN PARTIAL (MEDICAID) * Guarantor: Robert Mcgill Account Type Relation to Patient Date of Phone Billing Address Personal/Family Self [address] [place] [address] * Guarantor: Robert Mcgill Account Type Relation to Patient Date of Phone Billing Address Personal/Family Self [address] [place] [address] Care Teams Completions Manager Relationship Specialty Start Date End Date Geraldine Hess MD [address] [place] [address] PCP - General Internal Medicine 12/07/22 Mook Singh FNP [address] [place] [address] Nurse Practitioner Family Medicine 05/22/23
--- OUTSIDE RECORDS SUMMARY | 2024-07-16 12:09 | XMS_ITS | Clinical Summary ---
Author Organization [facility] [employer] [facility] ity Address [address] [place] [address] Care Team Providers Care Drop Hammer Mechanic Name Role Phone Unavailable Primary Care Provider Unavailabl e Social History Tobacco Use Types Packs/Day Years Used Date Smoking Tobacco: Never Assessed Sex and Gender Information Value Date Recorded Sex Assigned at Not on file Gender Identity Not on file Sexual Orientation Not on file Plan of Treatment Health Maintenance Due Date Last Done Comments Breast Cancer Screening 1985 DTaP,Tdap,and Td Vaccines (1 - Tdap) 2002 Hepatitis B Vaccines (1 of 3 - 19+ 3-dose series) 2002 Cervical Cancer Screening: P ap Smear 2004 Depression Screening 05/29/2022 HIV Screening 05/29/2022 Hepatitis C Screening 05/29/2022 Social Influencers of Health Screening 05/29/2022 COVID-19 Vaccine (2023-2 5 season) 2024 Influenza Vaccine (#1) 2024 HIB Vaccines Aged Out No longer eligi ble based on patient's age to complete this topic HPV Vaccines Aged Out No longer eligi ble based on patient's age to complete this topic Hepatitis A Vaccines Aged Out No long er eligible based on patient's age to complete this topic IPV Vaccines Aged Out No longer eligi ble based on patient's age to complete this topic MMR Vaccines Aged Out No longer eligi ble based on patient's age to complete this topic Meningococcal ACWY Vaccine Aged Out N o longer eligible based on patient's age to complete this topic Pneumococcal Vaccine: Pediat rics (0 to 5 Years) and At-Risk Patients (6 to 64 Years) Aged Out No longer eligible b ased on patient's age to complete this topic RSV Immunization Patients Un derik 20 months Aged Out No longer eligible b ased on patient's age to complete this topic Varicella Vaccines Aged Out No longer eligible based on patient's age to complete this topic
[2024-07-16 12:19] LABS: Alanine Aminotransferase 19 U/L (0-31); Albumin Level 4.2 g/dL (3.5-5.0); Alkaline Phosphatase 66 U/L (39-117); Anion Gap 8 (12-20); Aspartate Amino Transferase 21 U/L (5-31); Bilirubin Total 0.7 mg/dL (0.0-1.0); Blood Urea Nitrogen 12 mg/dL (9-16); Calcium 8.8 mg/dL (8.4-10.2); Carbon Dioxide 26 mmol/L (22-29); Chloride 107 mmol/L (96-108); Estimated Glomerular Filt Rate > 60; Glucose Random 74 mg/dL (60-115); Potassium 4.2 mmol/L (3.3-5.1); Sodium 137 mmol/L (135-145)
== END 2024-07-16 10:40 | disposition home or self-care (01) ==
LOC: HO.HHCL 10:39
PROVIDERS: Visit Provider Student in an Organized Health Care Education/Training Program
DX: Z22.7 Latent tuberculosis (principal)
CPT/HCPCS: 36415; 80053

== ENCOUNTER 2024-07-26 12:00 | Outpatient (REF) | payer OTHER, SELFPAY ==
--- OUTSIDE RECORDS SUMMARY | 2024-07-26 12:36 | XMS_ITS | Clinical Summary ---
Author Organization [facility] [employer] [facility] ity Address [address] [place] [address] Care Team Providers Care Soup Person Name Role Phone Unavailable Primary Care Provider [...]
--- OUTSIDE RECORDS SUMMARY | 2024-07-26 12:36 | XMS_ITS | Encounter Summary ---
Author Organization [employer] [facility] Address [address] [place] [address] Care Team Providers Care Continuous Washer Operator Name Role Phone Geraldine Hess MD Primary Care Pro vider Mook Singh Unavailable Unavailable Reason for Referral * Consultation (Routine) - Pending Review Specialty Diagnoses / Procedures Referred By Valeria keenan Referred To Contact Optometry Diagnoses Routine eye exam Geraldine Hess MD [address] [place] [address] Phone: tel: fax: Referral ID Status Reason Start Date Expiration Date Visits Requested Visits Authorized [id number] Pending Review Specialty Services Required 07/24/2024 07/24/2025 1 1 Reason for Visit * Reason Onset Date Comments Referral 07/24/2024 Encounter Details Date Type Department Care Team ([facility] st Contact Info) Description 07/24/[address] [facility] [address] [place] [address] [phone] Geraldine Hess MD [address] [place] [phone] Referral Social History Tobacco Use Types Packs/Day Years [...] encounter Miscellaneous Notes * Telephone Encounter - Mariah Pride RN - 07/24/2024 11:56 AM EST Referral placed. There is a wait list. They will call pt with an appt. * Telephone Encounter - Tano Castellanos - 07/24/2024 11:52 AM EST Tc from pt requesting a referral for [facility]. Contact pt at [phone] documented in this encounter Plan of Treatment Upcoming Encounters Date Type Department Care Team (Late st Contact Info) Description 08/21/2024 9:00 AM EST Office Visit [facility] [address] [place] [address] Sushma Hogan CNM [address] [place], [place] [phone] Scheduled Referrals Name Type Priority Associated Diagnoses Orde r Schedule Referral to Optometry Outpatient Referral Routine Routine eye exam Expected: 07/24/2024 (Approximate), Expires: 07/24/2025 documented as of this encounter Visit Diagnoses Diagnosis Routine eye exam Examination of eyes and vision documented in this encounter Additional Health Concerns Assessment Noted Time PHQ-9 Depression Total Score: 9 12/07/19 24 3:08 PM EDT documented as of this encounter Care Teams Continuous Washer Operator Relationship Specialty Start Date End Date Geraldine Hess MD [address] [place] [address] PCP - General Internal Medicine 12/07/22 Mook Singh FNP [address] [place] [phone] Nurse Practitioner Family Medicine 05/22/23 documented as of this encounter
--- OUTSIDE RECORDS SUMMARY | 2024-07-26 12:36 | XMS_ITS | Encounter Summary ---
Author Organization [employer] Address [address] [place] [address] [address] [place] [address] Care Team Providers Care Front Office Clerk Name Role Phone Geraldine Hess MD Primary Care Pro vider Mook Singh Unavailable Unavailable Reason for Visit * Reason Onset Date Comments Injectable PrEP communication 07/12/2024 Encounter Details Date Type Department Care Team ([facility] st Contact Info) Description 07/12/2024 Telephone [facility] [address] [place] [address] Gita Gambino, [place] [address] [place] [address] Injectable PrEP communication Social History Tobacco Use [...] Gambino RN - 07/12/2024 2:57 PM EST [facility] pharmacy [phone] called to find out if pt is [...] Description 08/21/2024 9:00 AM EST Office Visit [facility] [address] [place] [address] Sushma Hogan CNM [address] [place] [address] documented as of this encounter Visit Diagnoses Not on filedocumented in this encounter Additional Health Concerns Assessment Noted Time PHQ-9 Depression Total Score: 9 12/07/19 24 3:08 PM EDT documented as of this encounter Care Teams Front Office Clerk Relationship Specialty Start Date End Date Geraldine Hess MD [address] [place], [place] [phone] PCP - General Internal Medicine 12/07/22 Mook Singh FNP [address] [place] [address] Nurse Practitioner Family Medicine 05/22/23 documented as of this encounter
--- OUTSIDE RECORDS SUMMARY | 2024-07-26 12:36 | XMS_ITS | Encounter Summary ---
Author Organization [employer] Address [address] [place] [address] [address] [place] [address] Care Team Providers Care Hair Or Beauty Salon Assistant Name Role Phone Geraldine Hess MD Primary Care Pro vider Mook Singh Unavailable Unavailable Reason for Visit * Reason Onset Date Comments nursing intervention completed per MD V.O. 07/26 Encounter Details Date Type Department Care Team (Late st Contact Info) Description 07/26/2024 Telephone [facility] [address] [place] [phone] Annelise Bay, [place] nursing intervention completed per MD V.O. Social History Tobacco Use Types Packs/Day Years [...] encounter Miscellaneous Notes * Telephone Encounter - Annelise Bay RN - 07/26/2024 11:46 AM EST Pt has stated she has not voided in many days. requests straight cath to evaluate urinary retention. explained procedure in Mongolian for pt. GARDENIA Brewster chaperoned this telegraphic typewriter mechanic and interpreted during procedure. Pt provided verbal consent for straight cath. #10 Fr straight cath performed resulting in 400 ml orange colored urine. Sterile specs for U/A C/s obtained. Pt tolerated procedure well. Pt given follow up and home care instructions by . Pt has No further questions or concerns at this time. documented in this encounter Plan of Treatment Upcoming Encounters Date Type Department Care Team (Late st Contact Info) Description 08/21/2024 9:00 AM EST Office Visit [facility] [address] [place] [address] Sushma Hogan CNM [address] [place] [address] documented as of this encounter Visit Diagnoses Not on filedocumented in this encounter Additional Health Concerns Assessment Noted Time PHQ-9 Depression Total Score: 9 12/07/19 24 3:08 PM EDT documented as of this encounter Care Teams Hair Or Beauty Salon Assistant Relationship Specialty Start Date End Date Geraldine Hess MD [address] [place] [address] PCP - General Internal Medicine 12/07/22 Mook Singh FNP [address] [place] [address] Nurse Practitioner Family Medicine 05/22/23 documented as of this encounter
--- OUTSIDE RECORDS SUMMARY | 2024-07-26 12:36 | XMS_ITS | Encounter Summary ---
Author Organization [facility] Address [address] [place] [address] Care Team Providers Care Roofing Sales Representative Name Role Phone Geraldine Hess MD Primary Care Pro vider Mook Singh Unavailable Unavailable Reason for Visit * Reason Onset Date Comments Nurse Triage 07/26/2024 Encounter Details Date Type Department Care Team ([facility] st Contact Info) Description 07/26/2024 Telephone [facility] [address] [place], [place] [phone] Geraldine Hess MD [address] [place], [place] [phone] Nurse Triage Social History Tobacco Use Types [...] encounter Miscellaneous Notes * Telephone Encounter - Renetta Hatch LPN - 07/26/2024 9:22 AM EST Triage call returned with BLS # [id number] [place] Patient reports that she is only voiding small amounts and has generalized edema that started last Monday. Has urge to void and then goes small amount only with frequency. Patient without pain or fever. No identified pus or blood in voided urine. Patient feels that it is related to Rifampn medication and that onset of voiding difficulty started on last Monday. Disposition reviewed with patient in agreement with plan. No PCP or Team appts. Available at time of call. [facility] hours and availability provided for patient evaluation. Triage nurse informed the patient may have a wait of 1-2 hours because Walk In Clinic may have delays due to patient volume or symptom acuity. Insurance verified as active. HSN Partial Protocol Used: Urinary Symptoms (Adult) Protocol-Based Disposition: See in Office or Video Visit Today Video visit not offered Positive Triage Question: * Urinating more frequently than usual (i.e., frequency) OR new-onset of the feeling of an urgent need to urinate (i.e., urgency) * All higher-acuity triage questions were negative Care Advice Discussed: * Reasons To Call Back - Fever occurs - Pain or burning with urination - Unable to urinate and bladder feels full - You become worse * Telephone Encounter - Tano Castellanos - 07/26/2024 8:14 AM EST Symptom: Urine Symptoms Outcome: Schedule an urgent appointment (within 1 hour) or talk to a nurse or provider soon Reason: Can't pass urine (can't pee) The caller accepted this outcome. Contact pt at [phone] documented in this encounter Plan of Treatment Upcoming Encounters Date Type Department Care Team ([facility] st Contact Info) Description 08/21/2024 9:00 AM EST Office Visit [facility] [address] [place], [place] [phone] Sushma Hogan CNM [address] [place] [address] documented as of this encounter Visit Diagnoses Not on filedocumented in this encounter Additional Health Concerns Assessment Noted Time PHQ-9 Depression Total Score: 9 12/07/19 24 3:08 PM EDT documented as of this encounter Care Teams Roofing Sales Representative Relationship Specialty Start Date End Date Geraldine Hess MD [address] [place] [address] [phone] PCP - General Internal Medicine 12/07/22 Mook Singh FNP [address] [place] [phone] Nurse Practitioner Family Medicine 05/22/23 documented as of this encounter
--- OUTSIDE RECORDS SUMMARY | 2024-07-26 12:36 | XMS_ITS | Encounter Summary ---
Author Organization [employer] Address [address] [place] [id number] Care Team Providers Care Airborne Mission Systems Superintendent Name Role Phone Geraldine Hess MD Primary Care Pro vider Mook Singh Unavailable Unavailable Reason for Visit * Reason Onset Date Comments Appointment Request 06/02/2023 Encounter Details Date Type Department Care Team ([facility] Contact Info) Description 06/02/2023 Telephone [facility] MEDICINE [address] [place], [place] [phone] Geraldine Hess MD [address] [place], [place] [phone] Appointment Request Social History Tobacco Use Types [...] from pt requesting TP with New Pcp. Pipe Racker does see recall and tried scheduling but no availableslot was found. Please contact pt @ [phone] Lithuanian Speaker documented in this encounter Plan of Treatment Upcoming Encounters Date Type Department Care Team (Late st Contact Info) Description 08/21/2024 9:00 AM EST Office Visit [facility] MEDICINE [address] [place] [address] Sushma Hogan CNM [address] [place] [address] documented as of this encounter Visit Diagnoses Not on filedocumented in this encounter Additional Health Concerns Assessment Noted Time PHQ-9 Depression Total Score: 12 023 1:55 PM EST documented as of this encounter Care Teams Airborne Mission Systems Superintendent Relationship Specialty Start Date End Date Geraldine Hess MD [address] [place] [address] PCP - General Internal Medicine 12/07/22 Mook Singh FNP [address] [place] [address] Nurse Practitioner Family Medicine 05/22/23 documented as of this encounter
--- OUTSIDE RECORDS SUMMARY | 2024-07-26 12:36 | XMS_ITS | Encounter Summary ---
Author Organization [employer] [facility] Address [address] [place] [phone] Care Team Providers Care Curbstone Setter Name Role Phone Geraldine Hess MD Primary Care Pro vider Mook Singh Unavailable Unavailable Reason for Visit * Reason Onset Date Comments Nurse Triage 07/04/2024 Encounter Details Date Type Department Care Team ([facility] st Contact Info) Description 07/04/2024 Telephone [facility] MEDICINE [address] [place], [place] [phone] Geraldine Hess MD [address] [place], [place] [phone] Nurse Triage Social History Tobacco Use Types [...] throat. Pt advised of disposition, agrees to[facility] for exam as not available to take [...] 9:00 AM EST Office Visit [facility] MEDICINE [address] [place] [address] Sushma Hogan CNM [address] [place], [place] [phone] documented as of this encounter Visit Diagnoses Not on filedocumented in this encounter Additional Health Concerns Assessment Noted Time PHQ-9 Depression Total Score: 9 12/07/19 24 3:08 PM EDT documented as of this encounter Care Teams Curbstone Setter Relationship Specialty Start Date End Date Geraldine Hess MD [address] [place] [phone] PCP - General Internal Medicine 12/07/22 Mook Singh FNP [address] [place] [address] Nurse Practitioner Family Medicine 05/22/23 documented as of this encounter
--- OUTSIDE RECORDS SUMMARY | 2024-07-26 12:36 | XMS_ITS | Encounter Summary ---
Author Organization [employer] Address [address] [facility] [address] [place] [address] Care Team Providers Care Snack Stewardess Name Role Phone Geraldine Hess MD Primary [...] Description 08/21/2024 9:00 AM EST Office Visit [facility] MEDICINE [address] [place] [address] Sushma Hogan CNM [address] [place] [address] documented as of this encounter Visit Diagnoses Not on filedocumented in this encounter Additional Health Concerns Assessment Noted Time PHQ-9 Depression Total Score: 9 12/07/19 24 3:08 PM EDT documented as of this encounter Care Teams Snack Stewardess Relationship Specialty Start Date End Date Geraldine Hess MD [address] [place] [phone] PCP - General Internal Medicine 12/07/22 Mook Singh FNP [address] [place] [address] Nurse Practitioner Family Medicine 05/22/23 documented as of this encounter
--- OUTSIDE RECORDS SUMMARY | 2024-07-26 12:36 | XMS_ITS | Encounter Summary ---
Author Organization [employer] [facility] Address [address] [place] [address], [place] [address] Care Team Providers Care Shipping Room Supervisor Name Role Phone Geraldine Hess MD Primary Care Pro vider Mook Singh Unavailable Unavailable Reason for Referral * Imaging (STAT) - Pending Review Specialty Diagnoses / Procedures Referred By Contac t Referred To Contact Radiology Diagnoses Urinary retention Oliguria Procedures COMPLETE U.S. (BLADDER AND RENAL) Eleonora Lombardo MD [address] [place] [address] Phone: tel: fax: [address] Phone: tel: fax: Referral ID Status Reason Start Date Expiration Date V isits Requested Visits Authorized [id number] Pending Review 07/26/2024 07/26/2025 1 1 Reason for Visit * Reason Comments Difficulty Urinating Encounter Details Date Type Department Care Team (Late st Contact Info) Description 07/26/2024 10:20 AM EST Office Visit [facility] [address] [place] [address] [phone] Urinary retention (Primary Dx); Oliguria Social History Tobacco Use Types Packs/Day Years [...] AM EDT documented as of this encounter Last Filed Vital Signs Vital Sign Reading Time Taken Comments Blood Pressure 131/80 07/26/2024 10:21 AM EST Pulse 72 07/26/2024 10:21 AM EST Temperature 37.2 ??C (98.9 ??F) 07/26/2024 10:[address] Respiratory Rate 17 07/26/2024 10:21 AM EST Oxygen Saturation 98% 07/26/2024 10:21 AM EST Inhaled Oxygen Concentration - - Weight 80.3 kg (177 lb) 07/26/2024 10:21 AM EST Height - - Body Mass Index 28.57 05/17/2024 10:05 AM EST documented in this encounter Miscellaneous Notes * Assessment & Plan Note - Eleonora Lombardo MD - 07/26/2024 12:30 PM EST Associated Problem(s): Oliguria Related to Urinary retention. FU Renal US results * Assessment & Plan Note - Eleonora Lombardo MD - 07/26/2024 12:29 PM EST Associated Problem(s): Urinary retention Patient was straight cathed by RN and she obtained 400 cc out of orange/pink urine (from Rifampin as well). No complications, patient felt relieved. Most likely related to increased dose of Vistaril over the past 2 weeks. Order BMP and will follow-up as needed abnormal results. Advised to DC Vistaril and continue Celexa and Abilify as prescribed, follow-up with mental health provider. Follow-up urinalysis results, advised to increase water intake and return to clinic if symptoms continue next week. documented in this encounter Plan of Treatment Upcoming Encounters Date Type Department Care Team (Late st Contact Info) Description 08/21/2024 9:00 AM EST Office Visit [facility] MEDICINE [address] [place] [address] Sushma Hogan CN [address] [place] [address] Scheduled Orders Name Type Priority Associated Diagnoses Orde r Schedule Basic Metabolic Panel Lab Routine Urinary retention Oliguria Expected: 07/26/2024 (Approximate), Expires: 07/26/2025 COMPLETE U.S. (BLADDER AND RENAL) Imaging STAT Urinary retention Oliguria Expected: 07/26/2024, Expires: 07/26/2025 Hepatic Function Panel Lab Routine Urinary retention Expected: 07/26/2024 (Approximate), Expires: 07/26/2025 Sed Rate by Modified [place] Lab Routine Urinary retention Oliguria Expected: 07/26/2024 (Approximate), Expires: 07/26/2025 Culture, Urine, Routine Microbiology Routine Urinary retention Ordered: 07/26/2024 Urinalysis Complete Lab Routine Urinary retention Ordered: 07/26/2024 documented as of this encounter Procedures Procedure Name Priority Date/Time Associated Diagnosis Comments POCT URINALYSIS DIPSTICK Routine 07/26/2024 11:44 AM EST Urinary retention documented in this encounter Results * POCT urinalysis dipstick manually resulted (07/26/2024 11:44 AM EST) Color, UA Duarte Clarity, UA Clear Glucose, UA Negative Bilirubin, UA Negative Ketones, UA Negative Spec Grav, UA 1.010 Blood, UA Negative Negative, None Detected pH, UA 6.0 Protein, UA Negative Urobilinogen, UA 2.0 Leukocytes, UA Negative Negative, Rare, Trace Nitrite, UA Negative Negative, None Detected Urine 07/26/2024 11:4 4 AM EST [facility] POINT OF CARE TEST ENTER /EDIT ORDERABLES Final Result documented in this encounter Visit Diagnoses Diagnosis Urinary retention- Primary Unspecified retention of urine Oliguria Oliguria and anuria documented in this encounter Additional Health Concerns Assessment Noted Time PHQ-9 Depression Total Score: 9 12/07/19 24 3:08 PM EDT documented as of this encounter Care Teams Shipping Room Supervisor Relationship Specialty Start Date End Date Geraldine Hess MD [address] [place] [address] PCP - General Internal Medicine 12/07/22 Mook Singh FNP [address] [place] [address] Nurse Practitioner Family Medicine 05/22/23 documented as of this encounter
--- OUTSIDE RECORDS SUMMARY | 2024-07-26 12:36 | XMS_ITS | Clinical Summary ---
Author Organization [employer] Address [address] [place] [address] 7 [place] [address] Care Team Providers Care Test Bore Helper Name Role Phone Geraldine Hess MD Primary [...] Active Problems Problem Noted Date Diagnosed Date Urinary retention 07/26/2024 Assessment & Plan (07/26/2024 12:32 PM EST): Patient was straight cathed by RN and [...] to clinic if symptoms continue next week. Oliguria 07/26/2024 Assessment & Plan (07/26/2024 12:30 PM EST): Related to Urinary retention. FU Renal US results Vaginal discharge 06/27/2024 Assessment & Plan (06/27/2024 [...] extrem ities 12/24/2022 Overview (12/24/2022): [place] in [place] 4 years ago Continued symptoms of [...] retiring, patient will be referred to new [facility] psychiatric prescriber. Pt is aware that new provider will not be employee of [facility] and gives permission to share PHI. Any issues or concerns, contact [facility]. All her questions were answered and I have wished her well. She agrees with the plan. Assessment & Plan (10/05/2023 4:24 PM EDT): She has recently been more depressed, low motivation and difficult to get things done. Has missed work and is at risk of losing her job. She may come to [facility] and request [place] paperwork based on mental health condition, and [...] apartment. Meds are working well. [facility] ESL and/or job training programs. Might also investigate jew or other community groups to make new [...] ?? States all her family is in [place] and she feels very alone. ?? [...] threatening messages or behaviors. Had visit from [facility]. Assessment & Plan (12/24/2022 10:05 PM EDT): No new concerns Encouraged mother to contact clinic if something changes she is concerned about her safety or her son's safety Followup 3 months or sooner PRN with new PCP Encounters Date Type Department Care Team Description 07/26/2024 10:20 AM EST Office Visit [facility] [address] [address] Urinary retention (Primary Dx); Oliguria 07/26/2024 Telephone [facility] [address] [place] [address] Annelise Bay, RN nursing intervention completed per MD Chow 07/26/[address] [address] Geraldine Hess MD Nurse Triage 07/24/[address] [address] Geraldine Hess MD Referral 07/12/[address] [address] Gita Gambino, RN Injectable PrEP communication 07/10/[address] [address] Geraldine Hess MD High risk heterosexual behavior 07/04/[address] [address] Geraldine Hess MD Nurse Triage 06/28/2024 Travel 05/29/2024 10:10 AM EST Nurse Only [address] [address] Ashly Lo LPN Encounter for immunization (Primary Dx) 05/29/2024 Travel 05/27/[address] [address] Gita Gambino, RN 05/20/2024 Orders Only [address] [address] Geraldine Hess MD LTBI (latent tuberculosis infection) (Primary Dx) 05/17/2024 10:00 AM EST Office Visit [facility] [address] [place] [address] Geraldine Hess MD Overweight (BMI 25.0-29.9) (Primary Dx); Chronic tension-type headache, not intractable; LTBI (latent tuberculosis infection); Encounter for immunization; High risk heterosexual behavior; Health care maintenance; Anxious depression; Abnormal mammogram 05/17/2024 Refill [facility] [address] [place] [address] Geraldine Hess MD 05/17/2024 Travel 05/15/2024 Telephone [facility] [address] [place] [address] Kate Shay MA chart prep 05/01/2024 Orders Only [facility] [address] [place] [address] Gregroy James CNM 04/29/2024 Telephone [facility] [address] [place] [address] Gita Gambino, RN [employer] Communication 04/29/2024 Refill [facility] [address] [place] [address] Gita Gambino, RN On pre-exposure prophylaxis for HIV (Primary Dx); High risk heterosexual behavior 04/26/[address] [address] Helga Jewell [place] Results from Last 3 Months Immunizations Name Administration [...] (177 lb) 07/26/2024 10:21 AM EST Height 167.6 cm (5' 6 ) 05/17/2024 10:05 AM EST Body Mass Index 28.57 05/17/2024 10:05 AM EST Plan of Treatment Upcoming Encounters Date Type Department Care Team (Late st Contact Info) Description 08/21/2024 9:00 AM EST Office Visit [facility] [address] [place], [place] [phone] Gregory James, CNM [address] [place], [place] [phone] Health Maintenance Due Date Last Done Comments Dental X-Ray: Bitewings 09/02/2023 08/31/2022 Dental Oral Exam 01/06/2024 07/07/2023, 08/31/2022 Dental Prophylaxis 01/06/2024 07/07/2023, 08/31/2022 Depression Monitoring (PHQ-9) 06/07/2024 12/07/2023, 12/07/2023 Dental X-Ray: Full Mouth 08/14/2024 08/13/2021 SDOH Screening 09/12/2024 09/13/2023 Diagnostic Breast Imaging 10/29/2024 05/01/2024, 06/2023 Mammogram 10/29/2024 05/01/2024, 05/0 06/2023, 09/20/2023 Depression Screening 12/06/2024 12/07/2023, 12/07/19 24 Family Planning (PISQ) 04/22/2025 04/22/2024 Tobacco Screening 04/22/2025 04/22/2024 Alcohol/Substance Use Screening [...] 5 Years) and At-Risk Patients (6 to 49) Years) Aged Out No longer eligible based [...] Routine 07/26/2024 11:44 AM EST Urinary retention COMPREHENSIVE METABOLIC PANEL Routine 07/16/2024 10:43 AM EST LTBI (latent tuberculosis infection) CBC WITH AUTO DIFFERENTIAL Routine 05/17/2024 12:26 PM EST LTBI (latent tuberculosis infection) COMPREHENSIVE METABOLIC PANEL Routine 05/17/2024 12:26 PM EST LTBI (latent tuberculosis infection) BI MAMMOGRAM DIAGNOSTIC LEFT Routine 05/01/2024 10:40 AM EST HIV 1 RNA, QUANTITATIVE REAL TIME PCR [...] Recently Relevant to Health Maintenance Results * POCT urinalysis dipstick manually resulted (07/26/2024 11:44 AM EST) Color, UA [place] Clarity, UA Clear Glucose, UA Negative Bilirubin, UA Negative Ketones, UA Negative Spec Grav, UA 1.010 Blood, UA Negative Negative, None Detected pH, UA 6.0 Protein, UA Negative Urobilinogen, UA 2.0 Leukocytes, UA Negative Negative, Rare, Trace Nitrite, UA Negative Negative, None Detected Urine 07/26/2024 11:4 4 AM EST Eleonora Lombardo MD POINT OF CARE TEST ENTER /EDIT ORDERABLES Final Result * (ABNORMAL) Comprehensive Metabolic Panel (07/16/2024 10:43 AM EST) Only the most recent of2 resultswithin the time period is included. Sodium 137 135 - 145 mmol/L [facility] Potassium 4.2 3.3 - 5.1 mmol/L [facility] Chloride 107 96 - 108 mmol/L [facility] Carbon Dioxide 26 22 - 29 mmol/L [facility] Anion Gap 8(L) 12 - 20 [facility] Urea Nitrogen (BUN) 12 9 - 16 mg/dL [facility] Creatinine, Serum 0.94 0.5 - 1.4 mg/dL [facility] Estimated Glomerular Filt Rate >60 [facility] Comment:Chronic Kidney Disea se: Estimated GFR < 60 mL/min/1.66z4Isanlp Kidney Disease: Estimated GFR < 15 mL/min/1.73m2 Glucose 74 60 - 115 mg/dL [facility] Calcium 8.8 8.4 - 10.2 mg/dL [facility] Bilirubin, Total 0.7 0.0 - 1.0 mg/dL [facility] Aspartate Amino Transferase 21 5 - 31 U/L [facility] Alanine Aminotransferase 19 0 - 31 U/L [facility] Total Protein 8.0 6.5 - 8.0 g/dL [facility] Albumin Level 4.2 3.5 - 5.0 g/dL [facility] Alkaline Phosphatase 66 39 - 117 U/L [facility] Blood Venous blood specimen / Unknown 07/16/2024 10:43 AM EST 07/16/2024 11:17 AM EST us Geraldine Hein MD LAB BLOOD ORDERAB LES Final Result [facility] [address] [place] [address] [phone] * (ABNORMAL) CBC auto differential (05/17/2024 12:26 PM EST) White Blood Count 4.4(L) 4.8 - 10.8 X10*3/uL [facility] Red Blood Count 4.19(L) 4.20 - 5.50 X10*6/uL [facility] Hemoglobin 12.1 12.0 - 16.0 g/dl [facility] Hematocrit 35.8(L) 37.0 - 47.0 % [facility] Mean Corpuscular Volume 85.4 80.0 - 98.0 fL [facility] Mean Corpuscular Hemoglobin 28.9 27.0 - 33.0 pg [facility] Mean Corpuscular HGB Conc 33.8 31.0 - 35.0 g/dl [facility] Red Cell Distribution Width 12.5 11.0 - 16.0 % [facility] Platelet Count 225 160 - 400 X10*3/uL [facility] Mean Platelet Volume 11.4 9.4 - 12.3 fL [facility] Neutrophils Percent Auto 44.4(L) 45 - 73 % [facility] Imm Gran Pct Auto 0.2 0.0 - 0.4 % [facility] Lymphocytes Percent Auto 39.4 20 - 40 % [facility] Monocytes Percent Auto 10.4 2 - 11 % [facility] Eosinophils Percent Auto 4.5(H) 0 - 4 % [facility] Basophils Percent Auto 1.1 0 - 2 % [facility] NRBC Pct Auto 0.0 0.0 - 0.2 /100WBC [facility] Neutrophils Absolute Auto 2.0 2.0 - 8.3 x10*3/uL [facility] Imm Gran Abs Auto 0.01 0.00 - 0.03 X10*3/uL [facility] Lymphocytes Absolute Auto 1.7 1.2 - 4.9 X10*3/uL [facility] Monocytes Absolute Auto 0.5 0.1 - 1.2 X10*3/uL [facility] Eosinophils Absolute Auto 0.2 0.0 - 0.4 X10*3/uL [facility] Basophils Absolute Auto 0.1 0.0 - 0.2 X10*3/uL [facility] NRBC Abs Auto 0.000 0.0 - 0.012 X10*3/uL [facility] Blood Venous blood specimen / Unknown 05/17/2024 12:26 PM EST 05/17/2024 1:03 PM EST us Geraldine Hein MD LAB BLOOD ORDERAB LES Final Result [facility] [address] [facility] [place] [address] [phone] * BI Mammogram Diagnostic Left (05/01/2024 10:40 AM EST) Anatomical Region Laterality Modality Breast Left Mammography 05/01/2024 10:4 0 AM EST Narrative 05/01/2024 11:43 AM EST ? [facility] [place] ? [address] ?[place] [address] ? Mammography Report ? Signed ? Patient: Ngoc Robert Croft ?M ?? R#: [id number] ? : 1985 ?Acct:[id number] ? Age/Sex: 39 / F ?ADM Date: 05/01/24 ? Loc: HO.MAMMO ? Attending Dr: Gregory James CNM ? Ordering Physician: GREGORY JAMES CNM ?Results: 3.6MProbably Benign Finding - Short 6 M F/U ?? Suggested ? Date of Service: 05/01/24 ?Follow Up: 6 Month F/U ? Procedure(s): MM diagnostic mammo unilat LT ?? Accession Number(s): [id number] ? cc: Geraldine Hess MD; GREGORY JAMES [...] DD/ 1040 ? TD/TT: 05/01/24 1050 ? Yarn Hauler: ? Procedure Note Donotguerdainterpreter, Image - 05/01/2024 [facility] [address] [place] [address] Mammography Report Signed Patient: Robert Mcgill R#: [id number] : 1985Acct:[id number] Age/Sex: 39 / FADM Date: 05/01/24 Loc: HO.MAMMO Attending Dr: Gregory James CNM Ordering Physician: GREGORY JAMES CNM Results: 3.6MProbably Benign Finding - Short 6 M F/U Suggested Date of Service: 05/01/24Follow Up: 6 Month F/U Procedure(s): MM diagnostic mammo unilat Accession Number(s): [id number] cc: Geraldine Hess MD; GREGORY JAMES CNM [...] by: Pan Vargas MD 05/01/2024 11:40 AM [facility] Dictated By: Pan Vargas MD Signed By: <Electronically signed by Pan Vargas MD in OV> 05/01/24 1140 DD/ 1040 TD/TT: 05/01/24 1050 Yarn Hauler: Gregory James [facility] IMG BI PROCEDURES Final R esult * HIV-1 RNA, Quantitative, Real-Time PCR (03/29/2024 2:47 PM EDT) HIV RNA PCR Qn Copies NOT DETECTED NOT DETECTED copies/mL [facility] HIV RNA PCR Qn Log Copies NOT DETECTED NOT DETECTED [facility] Comment:Result Units: Log co pies/mLThis test was performed using Real-Time Polymerase ChainReaction.Reportable Range: 20 copies/mL to 10,000,000 copies/mL(1.30 log copies/mL to 7.00 log copies/mL).THIS TEST WAS PERFORMED AT:[facility] [place] [phone] RHOADES MD 03/29/2024 2:47 PM EDT 03/29/2024 3:56 PM EDT [facility] LAB BLOOD ORDERABLES Final Resul t Performing Organization Address [facility] Co de Phone Number [facility] [address] [place] [address] [phone] * Hepatitis C Antibody with Reflex to HCV, RNA, Quantitative, Real-Time PCR (03/04/2024 3:14 PM EDT) Hepatitis C Antibody Nonreactive Nonreactive [facility] Comment:Antibodies to HCV no t detected; does not exclude early acuteHCV infection. 03/04/2024 3:14 PM EDT 03/04/2024 4:28 PM EDT Geraldine Hein MD LAB BLOOD ORDERAB LES Final Result Performing Organization Address [facility] Co de Phone Number [facility] [address] [place] [address] [phone] * THINPREP PAP (12/07/2020 5:16 PM [...] historic and ?? current clinical information. ?? Briquette Machine Operator Helper : SEE COMMENT [facility] Comment: JH CT(ASCP) CT screening location: [address] ??[phone] Interpretation/R esult: Negative for intraepithelial lesion or malignancy. [facility] LMP: NONE GIVEN [facility] Prev. BX: NONE [facility]IV[facility] Prev. PAP: NONE [facility]IVEN [facility] SOURCE: None given [facility] Statement Of Adequacy: SEE COMMENT [facility] Comment: Satisfactory for evaluation. Endocervical/transformation zone component absent. Age and/or menstrual status not provided 12/07/2020 5:16 PM EDT Dianna James [facility] LAB PATHOLOGY ORDERABLES Final Result Performing Organization Address [facility] de Phone Number [facility] [address] * HPV mRNA E6/E7 (12/07/2020 5:16 PM EDT) HPV nRNA E6/E7 Not Detected Not Detected [facility] Comment: Methodology: Char Filter Tank Tender-Mediated Amplification This assay detects E6/E7 viral messenger RNA (mRNA) from 14 high-risk HPV types (16,18,31,33,35,39,45,51,52,56,58,59,66,68). ? The analytical performance characteristics of this assay have been determined by [employer]. The modifications have not been cleared or approved by the FDA. This assay has been validated pursuant to the CLIA regulations and is used for clinical purposes. ?? For additional information, please refer to http://education.[employer]faq/PWY348d1 (This link if provided for information/ educational purposes only.) NO COLLECTION DATE RECEIVED. WE HAVE USED THE DATE THE SPECIMEN WAS RECEIVED BY THIS LABORATORY THE COLLECTION DATE. IF THIS IS INCORRECT, PLEASE CONTACT CLIENT SERVICES. PHONE NUMBER: ?? 12/07/2020 5:16 PM EDT Dianna Ramirez NP LAB BLOOD ORDERABLES Final Res ult Performing Organization Address [facility] Co de Phone Number [facility] [address] from Last 3 Months or Most Recently Relevant to Health Maintenance Insurance * Guarantor: Robert Mcgill Account Type Relation to Patient Date of Phone Billing Address Personal/Family Self 1985 (Work) [address] [place] [address] [facility] HSN PARTIAL [employer] PPO DENTAL - HSN PARTIAL (MEDICAID) * Guarantor: Robert Mcgill Account Type Relation to Patient Date of Phone Billing Address Personal/Family Self [address] [place] [address] * Guarantor: Robert Mcgill Account Type Relation to Patient Date of Phone Billing Address Personal/Family Self [address] [place] [address] * Guarantor: Robert Mcgill Account Type Relation to Patient Date of Phone Billing Address Personal/Family Self [address] [place] [address] Care Teams Test Bore Helper Relationship Specialty Start Date End Date Geraldine Hess MD [address] [place] [address] PCP - General Internal Medicine 12/07/22 Mook Singh FNP [address] [place] [address] Nurse Practitioner Family Medicine 05/22/23
--- OUTSIDE RECORDS SUMMARY | 2024-07-26 12:36 | XMS_ITS | Encounter Summary ---
Author Organization [email or web address] Address [address] [place] [address] Care Team Providers Care Knife Setter Assembler Name Role Phone Geraldine Hess MD Primary Care Pro vider Mook Singh Unavailable Unavailable Reason for Visit * Reason Comments Med Refill Encounter Details Date Type Department Care Team ([facility] st Contact Info) Description 07/10/2024 Refill [facility] [address] [place], [place] [phone] Geraldine Hess MD [address] [place] [address] High risk heterosexual behavior Social History Tobacco [...] Description 08/21/2024 9:00 AM EST Office Visit [facility] [address] [place] [address] Sushma Hogan CNM [address] [place] [address] documented as of this encounter Visit Diagnoses Diagnosis High risk heterosexual behavior documented in this encounter Additional Health Concerns Assessment Noted Time PHQ-9 Depression Total Score: 9 12/07/19 24 3:08 PM EDT documented as of this encounter Care Teams Knife Setter Assembler Relationship Specialty Start Date End Date Geraldine Hess MD [address] [place] [phone] PCP - General Internal Medicine 12/07/22 Mook Singh FNP [address] [place] [phone] Nurse Practitioner Family Medicine 05/22/23 documented as of this encounter
[2024-07-26 14:15] LABS: Alanine Aminotransferase 17 U/L (0-31); Albumin Level 3.8 g/dL (3.5-5.0); Alkaline Phosphatase 64 U/L (39-117); Anion Gap 9 (12-20); Aspartate Amino Transferase 24 U/L (5-31); Bilirubin Direct 0.2 mg/dL (0.0-0.5); Bilirubin Total 0.6 mg/dL (0.0-1.0); Blood Urea Nitrogen 7 mg/dL (9-16); Calcium 9.4 mg/dL (8.4-10.2); Carbon Dioxide 25 mmol/L (22-29); Chloride 109 mmol/L (96-108); Estimated Glomerular Filt Rate > 60; Glucose Random 85 mg/dL (60-115); Potassium 4.3 mmol/L (3.3-5.1); Sodium 139 mmol/L (135-145); Total Protein 7.4 g/dL (6.5-8.0)
[2024-07-26 14:20] LABS: Appearance Urine Clear; Color Urine Dark Yellow; Glucose Urine UA Negative (Negative); Leukocyte Esterase Urine Trace (Negative); Nitrite Urine Negative (Negative); PH 6.5 (5.0-9.0); UMIC TRIGGER UA YES; Urine Blood Negative (Negative); Urine Ketones Trace mg/dL (Negative); Urine Protein Negative (Neg-Trace)
[2024-07-26 14:24] LABS: Erythrocyte Sedimentation Rate 6 MM/HR (0-20)
[2024-07-26 14:25] LABS: Bacteria Urine None Seen (None Seen); Hyaline Casts Urine 0-2 /LPF (0-2); RBC Urine 0-2 /HPF (0-2); Squamous Epithelial Cell Urine 0-2 /HPF (0-2); WBC Urine 0-5 /HPF (0-5)
== END 2024-07-26 12:01 | disposition home or self-care (01) ==
LOC: HO.HHCL 12:00
PROVIDERS: Visit Provider Internal Medicine
DX: R33.9 Retention of urine, unspecified (principal); R34 Anuria and oliguria
CPT/HCPCS: 36415; 80048; 80076; 81001; 85652; 87086

== ENCOUNTER → 2024-07-26 16:21 | Outpatient (BNV) | payer OTHER, SELFPAY | PROVIDERS: PCP Student in an Organized Health Care Education/Training Program; Visit Provider Specialist | DX: R33.9 Retention of urine, unspecified (principal) | CPT/HCPCS: 76770 ==

== ENCOUNTER 2024-10-31 12:30 | Outpatient (REF) | payer OTHER, SELFPAY ==
--- NOTE | ~2024-10-31 | MM_ITS ---
EXAMINATION: MM DIAGNOSTIC DIGITAL BREAST TOMOSYNTHESIS, BILATERAL CLINICAL INFORMATION: 1 year follow-up for left breast areas of grouped calcifications. COMPARISON: Mammography: Comparison is made with relevant prior exams. TECHNIQUE: Digital breast mammography with tomosynthesis is performed in both the craniocaudal and mediolateral oblique views along with computer-aided detection (CAD). FINDINGS: The breasts are extremely dense, which lowers the sensitivity of mammography (ACR BI-RADS breast composition Category d). Right: There are no significant masses, abnormal calcifications, or other abnormalities. Left: Faint areas of grouped calcifications in the upper central breast and lower central breast are not significantly changed from prior magnification views dating back for one year. No suspicious masses or other abnormal findings. Results are provided to the patient at time of visit by the technologist. MM/MM tomosynthesis diagnostic BI IMPRESSION: Right: Negative. Left: Groups of calcifications in the left breast are not significantly on magnification views dating back for one year. Recommend one-year follow-up diagnostic bilateral mammogram to demonstrate 2 years of stability. ASSESSMENT: BI-RADS BI-RADS 3 - Probably benign finding(s) - 12 month follow-up suggested RECOMMENDATION: 12 month diagnostic follow up This patient's information was entered into a reminder system with a target due date for their next mammogram. Electronically signed by: Jovita Hair DO 10/31/2024 01:37 PM EDT
--- OUTSIDE RECORDS SUMMARY | 2024-10-31 13:42 | XMS_ITS | Encounter Summary ---
Author Organization [employer] Address [address] [place] [address] Care Team Providers Care Profile Saw Setup Operator Name Role Phone Geraldine Hess MD Primary Care Pro vider Mook Singh Unavailable Unavailable Reason for Visit * Reason Onset Date Comments Appointment Request 06/02/2023 Encounter Details Date Type Department Care Team ([facility] st Contact Info) Description 06/02/2023 Telephone [facility] [address] [place], [place] [phone] Geraldine Hess MD [address] [place] [address] Appointment Request Social History Tobacco Use Types [...] encounter Miscellaneous Notes * Telephone Encounter - Ovidiokaylahelizlashonda Jay Price - 06/02/2023 10:44 AM EST Tc from pt requesting TP with New Pcp. Machine Design Checker does see recall and tried scheduling but no availableslot was found. Please contact pt @ [phone] Salvadorean Speaker documented in this encounter Plan of Treatment Upcoming Encounters Date Type Department Care Team (Late st Contact Info) Description 12/11/2024 10:45 AM EDT Office Visit [facility] [address] [place] [phone] Geraldine Hess MD [address] [place] [phone] 12/18/2024 10:00 AM EDT Procedure Visit [facility] [address] [place] [phone] Sushma Hogan CNM [address] [place] [phone] documented as of this encounter Visit Diagnoses Not on filedocumented in this encounter Additional Health Concerns Assessment Noted Time PHQ-9 Depression Total Score: 12 023 1:55 PM EST documented as of this encounter Care Teams Profile Saw Setup Operator Relationship Specialty Start Date End Date Geraldine Hess MD [address] [place] [address] PCP - General Internal Medicine 12/07/22 Mook Singh FNP [address] [place] [address] Nurse Practitioner Family Medicine 05/22/23 documented as of this encounter
--- OUTSIDE RECORDS SUMMARY | 2024-10-31 13:42 | XMS_ITS | Clinical Summary ---
Author Organization [employer] Address [address] [facility] [address] [place] [address] Care Team Providers Care Kennel Helper Name Role Phone Geraldine Hess MD Primary Care Pro vider Mook Singh Unavailable Unavailable Allergies No known active allergies Medications * This document contains information received from the source organization and may not represent a complete record from that organization. ARIPiprazole (Abilify) 5 MG tablet Take 1 [...] anxiety. 100 tablet 1 02/14/20 24 Active Gardasil 9 suspension prefilled syringe vaccine prefilled syringe INJECT INTRAMUSCULARLY AT PHARMACY 0.5 mL 05/17/20 24 Active emtricitabine-t enofovir DF (Truvada) 200-300 MG tablet One tablet by mouth daily 120 tablet 05/20/20 24 Active SUMAtriptan (Imitrex) 25 MG tabletIndicatio ns:Chronic tension-type headache, not intractable Take 1 tablet (25 mg) by mouth 1 (one) time if needed for migraine. May repeat dose once in 2 hours if no relief. Do not exceed 2 doses in 24 hours. 9 tablet 1 09/26/19 25 Active Active Problems Problem Noted Date Diagnosed [...] extrem ities 12/24/2022 Overview (12/24/2022): [place] in [place] 4 years ago Continued symptoms of [...] retiring, patient will be referred to new [facility] psychiatric prescriber. Pt is aware that new provider will not be employee of [facility] and gives permission to share PHI. Any issues or concerns, contact [facility]. All her questions were answered and I have wished her well. She agrees with the plan. Assessment & Plan (10/05/2023 4:24 PM EDT): She has recently been more depressed, low motivation and difficult to get things done. Has missed work and is at risk of losing her job. She may come to [facility] and request FMLA paperwork based on [...] apartment. Meds are working well. Referring to [facility] Mgt for assistance in finding ESL and/or [...] ?? States all her family is in [place] and she feels very alone. ?? [...] threatening messages or behaviors. Had visit from [facility]. Assessment & Plan (12/24/2022 10:05 PM EDT): No new concerns Encouraged mother to contact clinic if something changes she is concerned about her safety or her son's safety Followup 3 months or sooner PRN with new PCP Encounters Date Type Department Care Team Description 10/31/2024 Orders Only [facility] [address] [place] [address] Geraldine Hess MD 09/27/2024 Telephone [facility] [address] [place] [address] Gita Gambino RN PrEP communciation 09/25/2024 2:00 PM EDT Office Visit [facility] [address] [place] [address] Bekah Swanson, OD Presbyopia (Primary Dx); Ocular myokymia 09/25/2024 Refill [facility] [address] [place] [address] Geraldine Hess MD 09/25/2024 Refill [facility] [address] [place] [address] Geraldine Hess MD Chronic tension-type headache, not intractable 09/25/2024 Travel 09/13/2024 Refill [facility] [address] [place] [address] Geraldine Hess MD 08/21/2024 9:00 AM EST Office Visit [facility] [address] [place] [phone] Sushma Hogan CNM Family planning counseling (Primary Dx) 08/21/2024 Travel 08/14/2024 Telephone [facility] [address] [place] [address] Lizbet Borjas ANP 08/08/2024 Telephone [facility] [address] [place] [phone] Rubi Mcginnis RN Results 08/07/2024 Telephone [facility] [address] [place] [address] Eleonora Lombardo MD from Last 3 Months Immunizations Name Administration [...] Sign Reading Time Taken Comments Blood Pressure 109/70 08/21/2024 9:01 AM EST Pulse 67 08/21/2024 9:01 AM EST Temperature 36.3 ??C (97.3 ??F) 08/21/2024 9:01 AM ES T Respiratory Rate 20 08/21/2024 9:01 AM EST Oxygen Saturation 98% 08/21/2024 9:01 AM EST Inhaled Oxygen Concentration - - Weight 80.5 kg (177 lb 6.4 oz) 08/21/2024 9:01 A M EST Height 167.6 cm (5' 6 ) 08/21/2024 9:01 AM EST Body Mass Index 28.63 08/21/2024 9:01 AM EST Plan of Treatment Upcoming Encounters Date Type Department Care Team (Late st Contact Info) Description 12/11/2024 10:45 AM EDT Office Visit [facility] [address] [place] [phone] Geraldine Hess MD [address] [place] [address] 12/18/2024 10:00 AM EDT Procedure Visit [facility] [address] [place] [phone] Sushma Hogan, MARGIE [address] [place] [address] Health Maintenance Due Date Last Done Comments Dental X-Ray: Bitewings 09/02/2023 08/31/2022 Dental Oral Exam 01/06/2024 07/07/2023, 08/31/2022 Dental Prophylaxis 01/06/2024 07/07/2023, 08/31/2022 Dental X-Ray: Full Mouth 08/14/2024 08/13/2021 SDOH Screening 09/12/2024 09/13/2023 Diagnostic Breast Imaging 10/29/20242024, 05/01/2024, 10/25/2023 Mammogram 10/29/2024 10/31/2024, 11/2023, 10/25/2023, Additional history exists Depression Screening 12/06/2024 12/07/2023, 12/07/19 Alcohol/Substance Use Screening 05/17/2025 05/17/2024 Family Planning (PISQ) 08/21/2025 08/21/2024 Tobacco Screening 09/25/2025 09/25/2024 Cervical Cancer Screening 12/07/2025 HPV/Cotest 12/07/2025 12/07/2020 [...] topic Meningococcal Vaccine Aged Out No severiano erji eligible based on patient's age to complete [...] Procedure Name Priority Date/Time Associated Diagnosis Comments BI MAMMOGRAM DIAGNOSTIC TOMOSYNTHESIS BILATERAL Routine 10/31/2024 1:00 PM EDT HIV 1 RNA, QUANTITATIVE REAL TIME PCR [...] Recently Relevant to Health Maintenance Results * BI Mammogram Diagnostic Tomosynthesis Bilateral (10/31/2024 1:00 PM EDT) Anatomical Region Laterality Modality Breast Bilateral Mammography 10/31/2024 1:00 PM EDT Narrative 10/31/2024 1:40 PM EDT ? [facility] ? [address] ?[place] [address] ?[phone] ? Mammography Report ? Signed ? Patient: GrossmanRobert Becerra ?M ?? R#: [id number] ? : 1985 ?Acct:[id number] ? Age/Sex: 39 / F ?ADM Date: 05/08/25 ? Loc: HO.MAMMO ? Attending Dr: Geraldine Hein MD ? Ordering Physician: Geraldine Hess MD ?Results: 3.12MProbably Benign Finding - 12 month ?? F/U Suggested ? Date of Service: 10/31/24 ?Follow Up: 12 month diagnos ?? tic follow up ? Procedure(s): MM tomosynthesis diagnostic BI ?? Accession Number(s): [id number] ? cc: Geraldine Hess MD ? EXAMINATION: ?? MM DIAGNOSTIC DIGITAL BREAST TOMOSYNTHESIS, BILATERAL ? CLINICAL INFORMATION: ? 1 year follow-up for left breast areas of grouped calcifications. ? COMPARISON: ?? Mammography: Comparison is made with relevant prior exams. ? TECHNIQUE: ?? Digital breast mammography with tomosynthesis is performed in both the ?? craniocaudal and mediolateral oblique views along with computer-aided ?? detection (CAD). ? FINDINGS: ?? The breasts are extremely dense, which lowers the sensitivity of ?? mammography (ACR BI-RADS breast composition Category d). ?? Right: ?? There are no significant masses, abnormal calcifications, or other ?? abnormalities. ? Left: ?? Faint areas of grouped calcifications in the upper central breast and ?? lower central breast are not significantly changed from prior ?? magnification views dating back for one year. ?? No suspicious masses or other abnormal findings. ? Results are provided to the patient at time of visit by the ?? technologist. ? MM/MM tomosynthesis diagnostic BI ?? IMPRESSION: ?? Right: Negative. ? Left: ?? Groups of calcifications in the left breast are not significantly on ?? magnification views dating back for one year. Recommend one-year ?? follow-up diagnostic bilateral mammogram to demonstrate 2 years of ?? stability. ? ASSESSMENT: ? BI-RADS BI-RADS 3 - Probably benign finding(s) - 12 month follow-up ?? suggested ? RECOMMENDATION: ?? 12 month diagnostic follow up ? This patient's information was entered into a reminder system with a ?? target due date for their next mammogram. ? Electronically signed by: ??Jovita Hair DO ??10/31/2024 01:37 PM EDT ?? RP ? Dictated By: ?Jovita Hair DO ? Signed By: ?<Electronically signed by Jovita Hair, DO in OV> ? 10/31/247 ? DD/ 1300 ? TD/TT: 10/31/24 1310 ? Patient Access Coordinator: ? Procedure Note Donotuseinterpreter, Image - [facility] [address] [place] [address] Mammography Report Signed Patient: Robert Mcgill R#: [id number] : 1985Acct:[id number] Age/Sex: 39 / FADM Date: 10/31/24 Loc: HO.MAMMO Attending Dr: Geraldine Hein MD Ordering Physician: Geraldine Hess MD Results: 3.12MProbably Benign Finding - 12 month F/U Suggested Date of Service: 10/31/24Follow Up: 12 month diagnos tic follow up Procedure(s): MM tomosynthesis diagnostic BI Accession Number(s): [id number] cc: Geraldine Hess MD EXAMINATION: MM DIAGNOSTIC DIGITAL BREAST TOMOSYNTHESIS, BILATERAL CLINICAL INFORMATION: 1 year follow-up for left breast areas of grouped calcifications. COMPARISON: Mammography: Comparison is made with relevant prior exams. TECHNIQUE: Digital breast mammography with tomosynthesis is performed in both the craniocaudal and mediolateral oblique views along with computer-aided detection (CAD). FINDINGS: The breasts are extremely dense, which lowers the sensitivity of mammography (ACR BI-RADS breast composition Category d). Right: There are no significant masses, abnormal calcifications, or other abnormalities. Left: Faint areas of grouped calcifications in the upper central breast and lower central breast are not significantly changed from prior magnification views dating back for one year. No suspicious masses or other abnormal findings. Results are provided to the patient at time of visit by the technologist. MM/MM tomosynthesis diagnostic BI IMPRESSION: Right: Negative. Left: Groups of calcifications in the left breast are not significantly on magnification views dating back for one year. Recommend one-year follow-up diagnostic bilateral mammogram to demonstrate 2 years of stability. ASSESSMENT: BI-RADS BI-RADS 3 - Probably benign finding(s) - 12 month follow-up suggested RECOMMENDATION: 12 month diagnostic follow up This patient's information was entered into a reminder system with a target due date for their next mammogram. Electronically signed by: Jovita Hair DO 10/31/2024 01:37 PM EDT RP Workstation: [employer] Dictated By: Jovita Hair DO Signed By: <Electronically signed by Jovita Hair DO in OV> 10/31/24 1337 DD/ 1300 TD/TT: 10/31/24 1310 Patient Access Coordinator: Geraldine Hein MD IMG BI PROCEDURES Edited Result - Final * HIV-1 RNA, Quantitative, Real-Time PCR (03/29/2024 2:47 PM EDT) HIV RNA PCR Qn Copies NOT DETECTED NOT DETECTED copies/mL [facility] HIV RNA PCR Qn Log Copies NOT DETECTED NOT DETECTED [facility] Comment:Result Units: Log co pies/mLThis test was performed using Real-Time Polymerase ChainReaction.Reportable Range: 20 copies/mL to 10,000,000 copies/mL(1.30 log copies/mL to 7.00 log copies/mL).THIS TEST WAS PERFORMED AT:[facility] [place] [id number] RHOADES MD 03/29/2024 2:47 PM EDT 03/29/2024 3:56 PM EDT us Liz[facility] LAB BLOOD ORDERABLES Final Resul t [facility] [address] [place] [phone] * Hepatitis C Antibody with Reflex to HCV, RNA, Quantitative, Real-Time PCR (03/04/2024 3:14 PM EDT) Hepatitis C Antibody Nonreactive Nonreactive [facility] Comment:Antibodies to HCV no t detected; does not exclude early acuteHCV infection. 03/04/2024 3:14 PM EDT 03/04/2024 4:28 PM EDT us Geraldine Hein MD LAB BLOOD ORDERAB LES Final Result [facility] [address] [place] [address] [phone] * THINPREP PAP (12/07/2020 5:16 PM [...] historic and ?? current clinical information. ?? Manufacturing Sales Representative : SEE COMMENT [facility] Comment: JH, CT(ASCP) CT screening location: [address] ??[address] Interpretation/R esult: Negative for intraepithelial lesion or malignancy. [facility] LMP: NONE GIVEN [facility] Prev. BX: NONE GIVEN [facility] Prev. PAP: NONE GIVEN [facility] SOURCE: None given [facility] Statement Of Adequacy: SEE COMMENT [facility] Comment: Satisfactory for evaluation. Endocervical/transformation zone component absent. Age and/or menstrual status not provided 12/07/2020 5:16 PM EDT us Dianna Ramirez NP LAB PATHOLOGY ORDERABLES Final Result Performing Organization Address [facility] Co de Phone Number [facility] [address] * HPV mRNA E6/E7 (12/07/2020 5:16 PM EDT) HPV nRNA E6/E7 Not Detected Not Detected [facility] Comment: Methodology: Gas Pipe Layer-Mediated Amplification This assay detects E6/E7 viral messenger RNA (mRNA) from 14 high-risk HPV types (16,18,31,33,35,39,45,51,52,56,58,59,66,68). ? The analytical performance characteristics of this assay have been determined by [employer]. The modifications have not been cleared or approved by the FDA. This assay has been validated pursuant to the CLIA regulations and is used for clinical purposes. ?? For additional information, please refer to http://education.[employer]/faq/HHW444b9 (This link if provided for information/ educational purposes only.) NO COLLECTION DATE RECEIVED. WE HAVE USED THE DATE THE SPECIMEN WAS RECEIVED BY THIS LABORATORY THE COLLECTION DATE. IF THIS IS INCORRECT, PLEASE CONTACT CLIENT SERVICES. PHONE NUMBER: ?? 12/07/2020 5:16 PM EDT Dianna Ramirez NP LAB BLOOD ORDERABLES Final Res ult Performing Organization Address [facility] de Phone Number [facility] [address] from Last 3 Months or Most Recently Relevant to Health Maintenance Insurance * Guarantor: Robert Mcgill Account Type Relation to Patient Date of Phone Billing Address Personal/Family Self 1985 [address] [place] [address] HSN PARTIAL [employer] PPO DENTAL - HSN PARTIAL (MEDICAID) * Guarantor: Robert Mcgill Account Type Relation to Patient Date of Phone Billing Address Personal/Family Self [address] [place] [address] * Guarantor: Robert Mcgill Account Type Relation to Patient Date of Phone Billing Address Personal/Family Self [address] [place] [address] * Guarantor: Robert Mcgill Account Type Relation to Patient Date of Phone Billing Address Personal/Family Self [address] [place] [address] Care Teams Kennel Helper Relationship Specialty Start Date End Date Geraldine Hess MD [address] [place], [place] [phone] PCP - General Internal Medicine 12/07/22 Mook Singh FNP [address] [place] [address] Nurse Practitioner Family Medicine 05/22/23
--- OUTSIDE RECORDS SUMMARY | 2024-10-31 13:42 | XMS_ITS | Encounter Summary ---
Author Organization [employer] Address [address] [place] [address] Care Team Providers Care Project Eng Name Role Phone Geraldine Hess MD Primary Care Pro vider Mook Singh Unavailable Unavailable Reason for Visit * Reason Comments Med Refill Encounter Details Date Type Department Care Team (Late st Contact Info) Description 09/25/2024 Refill [facility] [address] [place], [place] [phone] Geraldine Hess MD [address] [place] [address] Social History Tobacco Use Types Packs/Day Years [...] Description 12/11/2024 10:45 AM EDT Office Visit [facility] [address] [place] [phone] Geraldine Hess MD [address] [place] [phone] 12/18/2024 10:00 AM EDT Procedure Visit [facility] [address] [place] [phone] Sushma Hogan CNM [address] [place] [address] documented as of this encounter Visit Diagnoses Not on filedocumented in this encounter Additional Health Concerns Assessment Noted Time PHQ-9 Depression Total Score: 9 12/07/19 24 3:08 PM EDT documented as of this encounter Care Teams Project Eng Relationship Specialty Start Date End Date Geraldine Hess MD [address] [place] [phone] PCP - General Internal Medicine 12/07/22 Mook Singh FNP [address] [place] [address] Nurse Practitioner Family Medicine 05/22/23 documented as of this encounter
--- OUTSIDE RECORDS SUMMARY | 2024-10-31 13:42 | XMS_ITS | Clinical Summary ---
Author Organization [employer] [facility] Address [address] [place] [address] Care Team Providers Care Polysomnography Technician Name Role Phone Unavailable Primary Care Provider Unavailabl e Social History Tobacco Use Types Packs/Day Years Used Date Smoking Tobacco: Never Assessed Comments Unknown Sex and Gender Information Value Date Recorded Sex Assigned at Not on file Legal Sex Female 10:40 PM EST Gender Identity Not on file Sexual Orientation [...] Vaccine (2023-2 5 season) 2024 Influenza Vaccine (Season Ended) 2025 HIB Vaccines Aged Out No longer eligi [...] patient's age to complete this topic Meningococcal B Vaccine Aged Out No l onger eligible based on patient's age to complete [...]
--- OUTSIDE RECORDS SUMMARY | 2024-10-31 13:42 | XMS_ITS | Encounter Summary ---
Author Organization [employer] Address [address] [place] [address] Care Team Providers Care Plastic Installer Name Role Phone Geraldine Hess MD Primary Care Pro vider Mook Singh Unavailable Unavailable Reason for Visit * Reason Comments Med Refill Encounter Details Date Type Department Care Team ([facility] st Contact Info) Description 09/13/2024 Refill [facility] [address] [place], [place] [phone] Geraldine Hess MD [address] [place] [address] Social History Tobacco Use Types Packs/Day Years [...] Description 12/11/2024 10:45 AM EDT Office Visit [facility] [address] [place] [phone] Geraldine Hess MD [address] [place] [address] 12/18/2024 10:00 AM EDT Procedure Visit [facility] [address] [place] [address] Sushma Hogan CNM [address] [place] [phone] documented as of this encounter Visit Diagnoses Not on filedocumented in this encounter Additional Health Concerns Assessment Noted Time PHQ-9 Depression Total Score: 9 12/07/19 24 3:08 PM EDT documented as of this encounter Care Teams Plastic Installer Relationship Specialty Start Date End Date Geraldine Hess MD [address] [place] [phone] PCP - General Internal Medicine 12/07/22 Mook Singh FNP [address] [place] [phone] Nurse Practitioner Family Medicine 05/22/23 documented as of this encounter
--- OUTSIDE RECORDS SUMMARY | 2024-10-31 13:42 | XMS_ITS | Encounter Summary ---
Author Organization [employer] Address [address] [place] [address] Care Team Providers Care Supervisor Drapery Hanging Name Role Phone Geraldine Hess MD Primary Care Pro vider Mook Singh Unavailable Unavailable Reason for Visit * Reason Comments Med Refill Encounter Details Date Type Department Care Team (Late st Contact Info) Description 07/10/2024 Refill [facility] [address] [place], [place] [phone] Geraldine Hess MD [address] [place] [address] High risk heterosexual behavior Social History Tobacco [...] Description 12/11/2024 10:45 AM EDT Office Visit [facility] [address] [place] [address] Geraldine Hess MD [address] [place] [phone] 12/18/2024 10:00 AM EDT Procedure Visit [facility] [address] [place] [address] Sushma Hogan CNM [address] [place] [address] documented as of this encounter Visit Diagnoses Diagnosis High risk heterosexual behavior documented in this encounter Additional Health Concerns Assessment Noted Time PHQ-9 Depression Total Score: 9 12/07/19 24 3:08 PM EDT documented as of this encounter Care Teams Supervisor Drapery Hanging Relationship Specialty Start Date End Date Geraldine Hess MD [address] [place] [address] PCP - General Internal Medicine 12/07/22 Mook Singh FNP [address] [place] [phone] Nurse Practitioner Family Medicine 05/22/23 documented as of this encounter
== END 2024-10-31 12:31 | disposition home or self-care (01) ==
LOC: HO.MAMMO 12:30
PROVIDERS: PCP Student in an Organized Health Care Education/Training Program; Visit Provider Student in an Organized Health Care Education/Training Program
DX: R92.1 Mammographic calcification found on diagnostic imaging of breast (principal)
CPT/HCPCS: 77062; 77066

== ENCOUNTER → 2024-10-31 13:00 | Outpatient (BNV) | payer OTHER, SELFPAY | PROVIDERS: PCP Student in an Organized Health Care Education/Training Program; Visit Provider Internal Medicine | DX: R92.1 Mammographic calcification found on diagnostic imaging of breast (principal) | CPT/HCPCS: 77062; 77066 ==

== ENCOUNTER 2024-12-18 16:47 | Outpatient (REF) | payer OTHER, SELFPAY ==
--- OUTSIDE RECORDS SUMMARY | 2024-12-18 18:51 | XMS_ITS | Encounter Summary ---
Author Organization [employer] Address [address] [place] [address] Care Team Providers Care External Grinder Tool Name Role Phone Geraldine Hess MD Primary Care Pro vider Mook Singh Unavailable Unavailable Reason for Visit * Reason Onset Date Comments Appointment Request 06/02/2023 Encounter Details Date Type Department Care Team ([facility] st Contact Info) Description 06/02/2023 Telephone [facility] MEDICINE [address] [place], [place] [phone] Geraldine eHss MD [address] [place] [address] Appointment Request Social History Tobacco Use Types [...] encounter Miscellaneous Notes * Telephone Encounter - Gabriellalashonda Jay Price - 06/02/2023 10:44 AM EST Tc from pt requesting TP with New Pcp. Filer Finish does see recall and tried scheduling but no availableslot was found. Please contact pt @ [phone] Latvian Speaker documented in this encounter Plan of Treatment Upcoming Encounters Date Type Department Care Team (Late st Contact Info) Description 12/25/2024 3:30 PM EDT Office Visit [facility] ADULT DENTAL [address] [place] [address] Clem Dalton DDS [address] [place] [address] 01/07/2025 10:00 AM EDT Nutrition [facility] DIABETES/NUTRITION [address] [place] [address] [place] [address] 02/19/2025 10:00 AM EDT Office Visit [facility] MEDICINE [address] [place] [address] Geraldine Hess MD [address] [place] [address] 06/12/2025 1:00 PM EST Office Visit [facility] ADULT DENTAL [address] [place], [place] [phone] Melanie Paulson [address] [place], [place] [phone] documented as of this encounter Visit Diagnoses Not on filedocumented in this encounter Additional Health Concerns Assessment Noted Time PHQ-9 Depression Total Score: 12 023 1:55 PM EST documented as of this encounter Care Teams External Grinder Tool Relationship Specialty Start Date End Date Geraldine Hess MD [address] [place], [place] [phone] PCP - General Internal Medicine 12/07/22 Mook Singh FNP [address] [place] [address] Nurse Practitioner Family Medicine 05/22/23 documented as of this encounter
[2024-12-24 08:11] LABS: HPV Genotype 16 Negative (Negative); HPV Genotype 18 Negative (Negative); HPV High Risk Negative (Negative)
== END 2024-12-18 16:48 | disposition home or self-care (01) ==
LOC: HO.HHCLNP 16:47
PROVIDERS: Visit Provider Advanced Practice Midwife
DX: Z12.4 Encounter for screening for malignant neoplasm of cervix (principal); Z11.51 Encounter for screening for human papillomavirus (HPV)
CPT/HCPCS: 87626; 88175

== ENCOUNTER 2024-12-20 15:10 | Outpatient (REF) | payer OTHER, SELFPAY ==
--- OUTSIDE RECORDS SUMMARY | 2024-12-20 15:16 | XMS_ITS | Encounter Summary ---
Author Organization [employer] Address [address] [place] [address] Care Team Providers Care Medical Claims Representative Name Role Phone Geraldine Hess MD Primary Care Pro vider Mook Singh Unavailable Unavailable Reason for Visit * Reason Onset Date Comments Appointment Request 06/02/2023 Encounter Details Date Type Department Care Team ([facility] st Contact Info) Description 06/02/2023 Telephone [facility] MEDICINE [address] [place], [place] [phone] Geraldine Hess MD [address] [place] [address] Appointment Request Social History Tobacco Use Types [...] from pt requesting TP with New Pcp. 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 Please contact pt @ [phone] Latvian Speaker documented in this encounter Plan of Treatment Upcoming Encounters Date Type Department Care Team (Late st Contact Info) Description 12/25/2024 3:30 PM EDT Office Visit [facility] ADULT DENTAL [address] [place] [address] Clem Dalton DDS [address] [place] [address] 01/07/2025 10:00 AM EDT Nutrition [facility] DIABETES/NUTRITION [address] [place] [address] [place] [address] 02/19/2025 10:00 AM EDT Office Visit [facility] MEDICINE [address] [place] [address] Geraldine Hess MD [address] [place] [address] 06/12/2025 1:00 PM EST Office Visit [facility] ADULT DENTAL [address] [place], [place] [phone] Melanie Paulson [address] [place], [place] [phone] documented as of this encounter Visit Diagnoses Not on filedocumented in this encounter Additional Health Concerns Assessment Noted Time PHQ-9 Depression Total Score: 12 023 1:55 PM EST documented as of this encounter Care Teams Medical Claims Representative Relationship Specialty Start Date End Date Geraldine Hess MD [address] [place], [place] [phone] PCP - General Internal Medicine 12/07/22 Mook Singh FNP [address] [place] [address] Nurse Practitioner Family Medicine 05/22/23 documented as of this encounter
[2024-12-20 16:33] LABS: Hematocrit 33.2 % (37.0-47.0); Hemoglobin 11.2 g/dl (12.0-16.0); Mean Corpuscular HGB Conc 33.7 g/dl (31.0-35.0); Mean Corpuscular Hemoglobin 28.6 pg (27.0-33.0); Mean Corpuscular Volume 84.9 fL (80.0-98.0); Mean Platelet Volume 11.4 fL (9.4-12.3); Platelet Count 236 X10*3/uL (160-400); Red Blood Count 3.91 X10*6/uL (4.20-5.50); Red Cell Distribution Width 12.5 % (11.0-16.0); White Blood Count 3.8 X10*3/uL (4.8-10.8)
[2024-12-20 16:55] LABS: Alanine Aminotransferase 24 U/L (0-31); Albumin Level 4.1 g/dL (3.5-5.0); Alkaline Phosphatase 65 U/L (39-117); Anion Gap 10 (12-20); Aspartate Amino Transferase 24 U/L (5-31); Bilirubin Total 0.3 mg/dL (0.0-1.0); Blood Urea Nitrogen 8 mg/dL (9-16); Calcium 8.9 mg/dL (8.4-10.2); Carbon Dioxide 25 mmol/L (22-29); Chloride 107 mmol/L (96-108); Cholesterol 142 mg/dL (<200); Estimated Glomerular Filt Rate > 60; Glucose Random 99 mg/dL (60-115); HDL Cholesterol 48 mg/dL (>40); LDL Cholesterol Calculated 83 mg/dL (<100); Potassium 4.4 mmol/L (3.3-5.1); Sodium 138 mmol/L (135-145); Triglycerides 56 mg/dL (<150)
[2024-12-20 17:12] LABS: TSH reflex Free T4 1.23 uIU/mL (0.32-4.0)
[2024-12-20 17:19] LABS: Estimated Average Glucose 111 mg/dL; Hemoglobin A1c % 5.5 % (<6.0); Total Hemoglobin (HGBA1C) 3005.2462 umol/L
[2024-12-20 17:26] LABS: Vitamin B12 1058 pg/mL (200-900)
[2024-12-21 03:39] LABS: CT PCR NOT DETECTED (Not Detect.); NG PCR NOT DETECTED (Not Detect.)
[2024-12-21 09:38] LABS: Syphilis Screen Nonreactive (Nonreactive)
[2024-12-21 09:57] LABS: HIV AB/AG Nonreactive (Nonreactive); HIV Num 1 0.05 S/CO (0.00-0.99)
[2024-12-21 10:07] LABS: HBS Num1 > 1000.00 mIU/mL (0-7.99); HBsAGNum1 0.59 S/CO (0.00-0.99); HIV AB/AG Nonreactive (Nonreactive); HIV Num 1 0.06 S/CO (0.00-0.99); Hepatitis B Core Antibody Nonreactive (Nonreactive); Hepatitis B Surface Antigen Negative (Negative); ~HepC Num1 0.12 S/CO (0.00-0.79); ~Hepatitis B Surface Antibody REACTIVE (Nonreactive); ~Hepatitis C Antibody Nonreactive (Nonreactive)
[2024-12-24 08:24] LABS: RPR Rapid Plasma Reagin NON-REACTIVE (NON-REACTIVE)
== END 2024-12-20 15:11 | disposition home or self-care (01) ==
LOC: HO.HHCL 15:10
PROVIDERS: PCP Student in an Organized Health Care Education/Training Program; Visit Provider Nurse Practitioner Family
DX: Z00.00 Encounter for general adult medical examination without abnormal findings (principal); Z20.2 Contact with and (suspected) exposure to infections with a predominantly sexual mode of transmission; Z72.51 High risk heterosexual behavior; Z13.1 Encounter for screening for diabetes mellitus; Z13.6 Encounter for screening for cardiovascular disorders
CPT/HCPCS: 36415; 80053; 80061; 82607; 82746; 83036; 84443; 85027; 86592; 86704; 86706; 86780; 86803; 87340; 87389; 87491; 87591

== ENCOUNTER 2025-01-07 16:56 | Outpatient (REF) | payer OTHER, SELFPAY ==
--- OUTSIDE RECORDS SUMMARY | 2025-01-07 16:57 | XMS_ITS | Encounter Summary ---
Author Organization [employer] Address [address] [place] [address] Care Team Providers Care Clinical Research Nurse Name Role Phone Geraldine Hess MD Primary Care Pro vider Mook Singh Unavailable Unavailable Reason for Visit * Reason Comments Med Refill Encounter Details Date Type Department Care Team (Late st Contact Info) Description 09/25/2024 Refill [facility] MEDICINE [address] [place], [place] [phone] Geraldine Hess MD [address] [place] [address] Social History Tobacco Use Types Packs/Day Years [...] Care Team (Late st Contact Info) Description 01/21/2025 3:00 PM EDT Clinical Support [facility] DIABETES/NUTRITION [address] [place] [address] [place] [address] 01/29/2025 10:00 AM EDT Office Visit [facility] ADULT DENTAL [address] [place] [address] Clem Dalton DDS [address] [place] [address] 02/19/2025 10:00 AM EDT Office Visit [facility] MEDICINE [address] [place] [address] Geraldine Hess MD [address] [place] [address] 06/12/2025 1:00 PM EST Office Visit [facility] ADULT DENTAL [address] [place] [address] Melanie Paulson [address] [place] [address] documented as of this encounter Visit Diagnoses Not on filedocumented in this encounter Additional Health Concerns Assessment Noted Time PHQ-9 Depression Total Score: 9 12/07/19 24 3:08 PM EDT documented as of this encounter Care Teams Clinical Research Nurse Relationship Specialty Start Date End Date Geraldine Hess MD [address] [place] [address] PCP - General Internal Medicine 12/07/22 Mook Singh FNP [address] [place] [address] Nurse Practitioner Family Medicine 05/22/23 documented as of this encounter
--- OUTSIDE RECORDS SUMMARY | 2025-01-07 16:57 | XMS_ITS | Clinical Summary ---
Author Organization [facility] [employer] [facility] it[facility] Address [address] [place] [address] Care Team Providers Care Transaction Manager Name Role Phone Unavailable Primary Care Provider [...] (2023-2 5 season) 2024 Influenza Vaccine (#1) 2025 HIB Vaccines Aged Out No longer [...] 5 Years) and At-Risk Patients (6 to 49 Years) Aged Out No longer eligible b ased on patient's age to complete this topic RSV Immunization Patients Un derik 20 months Aged Out No longer eligible b ased on patient's age to complete this topic Varicella Vaccines Aged Out No longer eligible based on patient's age to complete this topic
[2025-01-07 21:03] LABS: Bacterial Vaginosis PCR NEGATIVE (Negative); Candida Group PCR DETECTED (Not Detect); Candida glab krusei PCR NOT DETECTED (Not Detect); Trichomonas vaginalis PCR NOT DETECTED (Not Detect)
== END 2025-01-07 16:57 | disposition home or self-care (01) ==
LOC: HO.HHCLNP 16:56
PROVIDERS: Visit Provider Advanced Practice Midwife
DX: N89.8 Other specified noninflammatory disorders of vagina (principal)
CPT/HCPCS: 81515

== ENCOUNTER 2025-01-24 07:46 | Outpatient (REF) | payer OTHER, SELFPAY ==
--- NOTE | ~2025-01-24 | US_ITS ---
EXAMINATION: US SCREENING ULTRASOUND BREAST, BILATERAL CLINICAL INFORMATION: Dense breasts on mammography. Screening ultrasound. COMPARISON: None available. TECHNIQUE: Ultrasound is performed using grayscale imaging and color Doppler. Imaging is performed to include the four quadrants and retroareolar region. Both breasts are imaged. FINDINGS: Right breast: There is no suspicious finding by ultrasound. There is no solid mass or focal architectural abnormality. Left breast: There is no suspicious finding by ultrasound. There is no solid mass or focal architectural abnormality. US/US breast BI complete IMPRESSION: No suspicious findings on screening breast ultrasound. ASSESSMENT: BI-RADS 1 - Negative RECOMMENDATION: 1 year F/U This patient's information was entered into a reminder system with a target due date for their next mammogram. Electronically signed by: Jovita Hair DO 01/24/2025 09:01 AM BECKY
--- OUTSIDE RECORDS SUMMARY | 2025-01-24 07:48 | XMS_ITS | Clinical Summary ---
Author Organization [employer] [facility] ity Address [address] [place] [address] Care Team Providers Care Director Of Therapy Services Name Role Phone Unavailable Primary Care Provider [...] Cervical Cancer Screening: P ap Smear 2004 HIV Screening 05/29/2022 Hepatitis C Screening 05/29/2022 Social Influencers of Health Screening 05/29/2022 COVID-19 Vaccine ( - 2023-2 5 season) 2024 Depression Screening 06/26/2024 Influenza Vaccine (#1) 2025 HIB Vaccines Aged [...]
--- OUTSIDE RECORDS SUMMARY | 2025-01-24 07:48 | XMS_ITS | Encounter Summary ---
Author Organization [employer] Address [address] [place] [address] [place] [address] Care Team Providers Care Digital Media Analyst Name Role Phone Geraldine Hess MD Primary Care Pro vider Mook Singh Unavailable Unavailable Reason for Visit * Reason Comments Med Refill Encounter Details Date Type Department Care Team (Late st Contact Info) Description 09/25/2024 Refill [facility] MEDICINE [address] [place], [place] [phone] Geraldine Hess MD [address] [place] [address] Social History Tobacco Use Types Packs/Day Years [...] Care Team (Late st Contact Info) Description 01/29/2025 10:00 AM EDT Office Visit [facility] ADULT DENTAL [address] [place] [address] Clem Dalton DDS [address] [place] [address] 02/19/2025 10:00 AM EDT Office Visit [facility] MEDICINE [address] [place] [address] Geraldine Hess MD [address] [place] [address] 06/12/2025 1:00 PM EST Office Visit [facility] ADULT DENTAL [address] [place] [address] Melanie Paulson [address] [place] [address] documented as of this encounter Visit Diagnoses Not on filedocumented in this encounter Additional Health Concerns Assessment Noted Time PHQ-9 Depression Total Score: 9 12/07/19 24 3:08 PM EDT documented as of this encounter Care Teams Digital Media Analyst Relationship Specialty Start Date End Date Geraldine Hess MD [address] [place] [address] PCP - General Internal Medicine 12/07/22 Mook Singh FNP [address] [place] [address] Nurse Practitioner Family Medicine 05/22/23 documented as of this encounter
== END 2025-01-24 07:47 | disposition home or self-care (01) ==
LOC: HO.MAMMO 07:46
PROVIDERS: Visit Provider Student in an Organized Health Care Education/Training Program
DX: R92.30 Dense breasts, unspecified (principal)
CPT/HCPCS: 76641

== ENCOUNTER → 2025-01-24 08:00 | Outpatient (BNV) | payer OTHER, SELFPAY | PROVIDERS: Visit Provider Internal Medicine | DX: R92.2 Inconclusive mammogram (principal) | CPT/HCPCS: 76641 ==

== ENCOUNTER 2025-02-26 11:36 | Outpatient (REF) | payer OTHER, SELFPAY ==
--- OUTSIDE RECORDS SUMMARY | 2025-02-26 18:00 | XMS_ITS | Encounter Summary ---
Author Organization [employer] Address [address] [facility] [address] [place] [address] Care Team Providers Care Home Care Aide Name Role Phone Geraldine Hess MD Primary Care Pro vider Mook Singh Unavailable Unavailable Encounter Details Date Type Department Care Team (Late st Contact Info) Description 02/26/2025 6:00 PM EDT Office Visit [facility] WALK-IN CENTER [address] [place] [address] [phone] Lizbet Borjas ANP [address] [place] [address] Hematuria, unspecified type (Primary Dx); Dysuria Social History Tobacco Use Types Packs/Day Years Used Date Smoking Tobacco: Never Passive Smoke Exposure: Never Smokeless Tobacco: Never Alcohol Use Standard Drinks/Week Comments Not Currently 0 (1 standard drink = 0.6 oz pur e alcohol) social Depression Answer Date Recorded Patient Health Questionnaire-9 Score 5 12/11/2024 Patient Health Questionnaire-9 Score 5 12/11/2024 Last PHQ-9: Questionnaire Data Not on file 0 12/11/2024 Housing Stability Answer Date Recorded What is your housing situation today? I have bogdan kwong 12/11/[address] you li ve. Do you have problems with any of the following? None of the above 12/11/2024 Food Insecurity Answer Date Recorded Within the past 12 months, y ou worried that your food would run out before you got money to buy more: Never True 12/11/2024 Within the past 12 months,th e food you bought just didn't last and you didn't have enough money to get more: Never True Transportation Answer Date Recorded In the past 12 months, has l ack of transportation kept you from medical appts, meetings, work or from getting things needed for daily living? No 12/11/2024 Utilities Answer Date Recorded In the past 12 months, has t he electric, gas, oil or water company threatened to shut off services in your home? No 12/11/2024 Depression Answer Date Recorded Patient Health Questionnaire-2 Score 2 12/11/2024 Internet Access Answer Date Recorded Internet Access Q1 Yes 12/11/2024 Internet Access Q2 Not on file 12/11/2024 Comments No Sex and Gender Information Value Date Recorded Sex Assigned at Female 04/25/2022 10:36 AM EDT Legal Sex Female 10:36 AM EDT Gender Identity Female 04/25/2022 10:36 AM EDT Sexual Orientation Straight 04/25/2022 10 :36 AM EDT documented as of this encounter Last Filed Vital Signs Vital Sign Reading Time Taken Comments Blood Pressure 130/78 02/26/2025 5:00 PM EDT Pulse 63 02/26/2025 5:00 PM EDT Temperature 36.6 C (97.9 F) 02/26/2025 5:00 PM EDT Respiratory Rate 20 02/26/2025 5:00 PM EDT Oxygen Saturation 100% 02/26/2025 5:00 PM EDT Inhaled Oxygen Concentration - - Weight 78.9 kg (174 lb) 02/26/2025 5:00 PM EDT Height 175.3 cm (5' 9 ) 02/26/2025 5:00 PM EDT Body Mass Index 25.7 02/26/2025 5:00 PM EDT documented in this encounter Progress Notes * CRUZITO Person - 02/26/2025 6:00 PM EDT Images from the original note were not included. Subjective Patient ID: Robert Croft is a 39 y.o. female who presents for sick visit. HPI PMX of depression/anxiety,sickle cell trait,chronic constipation,Migraine ALMEIDA,hx of varicose veins/venous insuff, LTBI s/p Tx Here today for hematuria. Also strong smelling urine, dysuria. Has chronic contipation and has L sided abd pain and sometimes low back pain. No fever/chills, nausea, vomiting. New partner 2 mos ago. No vaginal sx. Non-smoker Office Visit on 02/26/2025 Component Date Value Ref Range Status Color, UA 02/26/2025 Light Yellow Final Clarity, UA 02/26/2025 Clear Final Glucose, UA 02/26/2025 Negative Final Bilirubin, UA 02/26/2025 Negative Final Ketones, UA 02/26/2025 Negative Final Spec Grav, UA 02/26/2025 1.020 Final Blood, UA 02/26/2025 Positive (A) Negative, None Detected Final pH, UA 02/26/2025 7.0 Final Protein, UA 02/26/2025 Negative Final Urobilinogen, UA 02/26/2025 0.2 Final Leukocytes, UA 02/26/2025 Trace Negative, Rare, Trace Final Nitrite, UA 02/26/2025 Negative Negative, None Detected Final QC Media Lot # 02/26/2025 [id number] Final Lot# Expiration Date 02/26/2025 [id number] Final Review of Systems Constitutional: Negative for chills and fever. HENT: Negative for sore throat. Respiratory: Negative for cough and shortness of breath. Cardiovascular: Negative for chest pain. Gastrointestinal: Negative for constipation and diarrhea. Endocrine: Negative for polydipsia, polyphagia and polyuria. Genitourinary: Positive for dysuria, frequency and hematuria. Negative for difficulty urinating, flank pain and pelvic pain. Objective BP 130/78 (BP Location: Right arm, Patient Position: Sitting, BP Cuff Size: Adult) Pulse 63 Temp 97.9 ??F (36.6 ??C) (Temporal) Resp 20 Ht 5' 9 (1.753 m) Wt 174 lb (78.9 kg) LMP 02/17/2025 (Approximate) SpO2 100% BMI 25.70 kg/m?? Physical Exam Constitutional: General: She is not in acute distress. Appearance: Normal appearance. She is not ill-appearing. HENT: Head: Normocephalic and atraumatic. Eyes: General: No scleral icterus. Extraocular Movements: Extraocular movements intact. Pupils: Pupils are equal, round, and reactive to light. Cardiovascular: Rate and Rhythm: Normal rate and regular rhythm. Pulmonary: Effort: Pulmonary effort is normal. No accessory muscle usage or respiratory distress. Abdominal: General: Bowel sounds are normal. Palpations: Abdomen is soft. Comments: Mild tenderness areas above Musculoskeletal: Arms: Comments: TTP low back L side, no CVAT Neurological: Mental Status: She is alert and oriented to person, place, and time. Psychiatric: Mood and Affect: Mood normal. Behavior: Behavior normal. Assessment/Plan Diagnoses and all orders for this visit: Hematuria, unspecified type NG/CT and urine cx Tx empirically for UTI Optimize bowel regimen, suffers chronic constipation Complete medication as prescribed. Increase fluids. Urinate after sex. Avoid bladder irritants. Report fever, chills, worsening symptoms or abdominal/flank pain or RTC for worsening sx. - Culture, Urine, Routine; Future - nitrofurantoin, macrocrystal-monohydrate, (Macrobid) 100 MG capsule; Take 1 capsule (100 mg) by mouth 2 times daily for 5 days. - Chlamydia/N. Gonorrhoeae, PCR, Urine Pelvic pain - POCT Urinalysis documented in this encounter Plan of Treatment Upcoming Encounters Date Type Department Care Team (Late st Contact Info) Description 03/10/2025 3:30 PM EDT Clinical Support [facility] DIABETES/NUTRITION [address] [place] [address] Miranda Benito, RD [address] [place] [address] 06/12/2025 1:00 PM EST Office Visit [facility] ADULT DENTAL [address] [place] [address] Khurram, Melanie [address] [place] [address] Scheduled Orders Name Type Priority Associated Diagnoses Orde r Schedule Culture, Urine, Routine Microbiology Routine Hematuria, unspecified type Expected: 02/26/2025 (Approximate), Expires: 02/26/2026 Chlamydia/N. Gonorrhoeae, PCR, Urine Lab Routine Hematuria, unspecified type Ordered: 02/26/2025 documented as of this encounter Procedures Procedure Name Priority Date/Time Associated Diagnosis Comments POCT URINALYSIS DIPSTICK Routine 02/26/2025 3:48 PM EDT Dysuria documented in this encounter Results * (ABNORMAL) POCT Urinalysis (02/26/2025 3:48 PM EDT) Color, UA Light Yellow Clarity, UA Clear Glucose, UA Negative Bilirubin, UA Negative Ketones, UA Negative Spec Grav, UA 1.020 Blood, UA Positive(A) Negative, None Detected pH, UA 7.0 Protein, UA Negative Urobilinogen, UA 0.2 Leukocytes, UA Trace Negative, Rare, Trace Nitrite, UA Negative Negative, None Detected QC Media Lot # [id number] Lot# Expiration Date [id number] Urine 02/26/2025 3:48 PM EDT Geraldine Hein MD POINT OF CARE PROMISE T ENTER/EDIT ORDERABLES Final Result documented in this encounter Visit Diagnoses Diagnosis Hematuria, unspecified type- Primary Dysuria documented in this encounter Additional Health Concerns Assessment Noted Time PHQ-9 Depression Total Score: 5 12/12/19 25 11:17 AM EDT documented as of this encounter Care Teams Home Care Aide Relationship Specialty Start Date End Date Geraldine Hess MD [address] [place] [address] PCP - General Internal Medicine 12/07/22 Mook Singh FNP [address] [place] [address] Nurse Practitioner Family Medicine 05/22/23 documented as of this encounter
--- OUTSIDE RECORDS SUMMARY | 2025-02-27 13:16 | XMS_ITS | Encounter Summary ---
Author Organization [employer] Address [address] [place] [address] Care Team Providers Care Director Machine Name Role Phone Geraldine Hess MD Primary Care Pro vider Mook Singh Unavailable Unavailable Reason for Visit * Reason Onset Date Comments Nurse Triage 01/06/2025 Encounter Details Date Type Department Care Team ([facility] st Contact Info) Description 01/06/2025 Telephone [facility] MEDICINE [address] [place], [place] [phone] Geraldine Hess MD [address] [place] [address] Nurse Triage Social History Tobacco Use Types [...] housing situation today? I have bogdan varghese 12/11/[address] you li [...] encounter Miscellaneous Notes * Telephone Encounter - Deisi Elizalde RN - 01/06/2025 10:28 AM EDT Triage call with [facility] technical programs manager [place] [id number] Pt reports vaginal irritation, itchiness, milky white discharge and pelvic pain since last week. Pthas tried OTC antifungal medicine without effect. Pt is asking for PO medication . ASK apt with Ange 715/25 @ 900am Pt has another apt in [facility] this morning at 10am. Pt agrees with this disposition. Insurance is verified as active prior to booking. Protocol Used: Vaginal Symptoms (Adult) Protocol-Based Disposition: See in Office or Video Visit Today or Tomorrow Positive Triage Question: * Moderate-Severe itching (i.e., interferes with school, work, or sleep) * All higher-acuity triage questions were negative Care Advice Discussed: * Reassurance and Education - Vaginal Yeast Infection * Antifungal Medicine for Yeast Infection * Antifungal Medicine for Yeast Infection - Extra Notes and Warnings * Genital Hygiene * Expected Course * Reasons To Call Back - Vaginal discharge becomes yellow or green - Vaginal discharge becomes foul smelling or itchy - Fever or abdomen pain occur - You become worse * Telephone Encounter - Danna Gordillo - 01/06/2025 9:07 AM EDT Symptom: Vaginal Symptoms - Not Bleeding Outcome: Talk to a nurse or provider within 15 minutes Reason: Severe pelvic pain now The caller accepted this outcome. Contact pt at [phone] (yoruba) documented in this encounter Plan of Treatment Upcoming Encounters Date Type Department Care Team (Late st Contact Info) Description 03/10/2025 3:30 PM EDT Clinical Support [facility] DIABETES/NUTRITION [address] [place] [address] [place] [address] 06/12/2025 1:00 PM EST Office Visit [facility] ADULT DENTAL [address] [place] [address] Khurram Melanie [address] [place] [address] documented as of this encounter Visit Diagnoses Not on filedocumented in this encounter Additional Health Concerns Assessment Noted Time PHQ-9 Depression Total Score: 5 12/12/19 25 11:17 AM EDT documented as of this encounter Care Teams Director Machine Relationship Specialty Start Date End Date Geraldine Hess MD [address] [place] [address] PCP - General Internal Medicine 12/07/22 Mook Singh FNP [address] [place] [address] Nurse Practitioner Family Medicine 05/22/23 documented as of this encounter
--- OUTSIDE RECORDS SUMMARY | 2025-02-27 13:16 | XMS_ITS | Encounter Summary ---
Author Organization [employer] Address [address] [place] [address] Care Team Providers Care Supervisor Microbiology Technologists Name Role Phone Geraldine Hess MD Primary Care Pro vider Mook Singh Unavailable Unavailable Reason for Visit * Reason Onset Date Comments Appointment Request 06/02/2023 Encounter Details Date Type Department Care Team ([facility] st Contact Info) Description 06/02/2023 Telephone [facility] MEDICINE [address] [place], [place] [phone] Geraldine Hess MD [address] [place] [address] Appointment Request Social History Tobacco Use Types [...] from pt requesting TP with New Pcp. 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 Please contact pt @ [phone] French Speaker documented in this encounter Plan of Treatment Upcoming Encounters Date Type Department Care Team (Late st Contact Info) Description 03/10/2025 3:30 PM EDT Clinical Support [facility] DIABETES/NUTRITION [address] [place] [address] [place] [address] 06/12/2025 1:00 PM EST Office Visit [facility] ADULT DENTAL [address] [place] [address] Melanie Paulson [address] [place] [address] documented as of this encounter Visit Diagnoses Not on filedocumented in this encounter Additional Health Concerns Assessment Noted Time PHQ-9 Depression Total Score: 12 023 1:55 PM EST documented as of this encounter Care Teams Supervisor Microbiology Technologists Relationship Specialty Start Date End Date Geraldine Hess MD [address] [place] [address] PCP - General Internal Medicine 12/07/22 Mook Singh FNP [address] [place] [address] Nurse Practitioner Family Medicine 05/22/23 documented as of this encounter
--- OUTSIDE RECORDS SUMMARY | 2025-02-27 13:16 | XMS_ITS | Encounter Summary ---
Author Organization [employer] Address [address] [place] [address] Care Team Providers Care Process Line Operator Name Role Phone Geraldine Hess MD Primary Care Pro vider Mook Singh Unavailable Unavailable Reason for Visit * Reason Comments Med Refill Encounter Details Date Type Department Care Team ([facility] st Contact Info) Description 09/13/2024 Refill [facility] MEDICINE [address] [place], [place] [phone] Geraldine Hess MD [address] [place] [address] Social History Tobacco Use Types Packs/Day Years [...] Description 03/10/2025 3:30 PM EDT Clinical Support [facility] DIABETES/NUTRITION [address] [place] [address] [place] [address] 06/12/2025 1:00 PM EST Office Visit [facility] ADULT DENTAL [address] [place] [address] Khurram, Melanie [address] [place] [address] documented as of this encounter Visit Diagnoses Not on filedocumented in this encounter Additional Health Concerns Assessment Noted Time PHQ-9 Depression Total Score: 9 12/07/19 24 3:08 PM EDT documented as of this encounter Care Teams Process Line Operator Relationship Specialty Start Date End Date Geraldine Hess MD [address] [place] [id number] PCP - General Internal Medicine 12/07/22 Mook Singh FNP [address] [place] [id number] Nurse Practitioner Family Medicine 05/22/23 documented as of this encounter
--- OUTSIDE RECORDS SUMMARY | 2025-02-27 13:16 | XMS_ITS | Encounter Summary ---
Author Organization [employer] Address [address] [place] [id number] Care Team Providers Care [place] Ma[place] Name Role Phone Geraldine Hess MD Primary Care Pro vider Mook Singh Unavailable Unavailable Reason for Visit * Reason Comments Med Refill Encounter Details Date Type Department Care Team (Late st Contact Info) Description 07/10/2024 Refill [facility] MEDICINE [address] [place], [place] [phone] Geraldine Hess MD [address] [place] [address] High risk heterosexual behavior Social History Tobacco [...] Description 03/10/2025 3:30 PM EDT Clinical Support [facility] DIABETES/NUTRITION [address] [place] [address] [place] [address] 06/12/2025 1:00 PM EST Office Visit [facility] ADULT DENTAL [address] [place] [address] Khurram, Melanie [address] [place] [address] documented as of this encounter Visit Diagnoses Diagnosis High risk heterosexual behavior documented in this encounter Additional Health Concerns Assessment Noted Time PHQ-9 Depression Total Score: 9 12/07/19 24 3:08 PM EDT documented as of this encounter Care Teams [place] Maori Relationship Specialty Start Date End Date Geraldine Hess MD [address] [place] [address] PCP - General Internal Medicine 12/07/22 Mook Singh FNP [address] [place] [id number] Nurse Practitioner Family Medicine 05/22/23 documented as of this encounter
--- OUTSIDE RECORDS SUMMARY | 2025-02-27 13:16 | XMS_ITS | Encounter Summary ---
Author Organization [employer] Address [address] [place] [address] Care Team Providers Care Heat Engineering Teacher Name Role Phone Geraldine Hess MD Primary Care Pro vider Mook Singh Unavailable Unavailable Encounter Details Date Type Department Care Team (Latest Contact Info) Description 02/26/2025 Travel Social History Tobacco Use Types Packs/Day [...] housing situation today? I have bogdanyasmin kwong 12/11/[address] you [...] Description 03/10/2025 3:30 PM EDT Clinical Support [facility] DIABETES/NUTRITION [address] [place] [address] [place] [address] 06/12/2025 1:00 PM EST Office Visit [facility] ADULT DENTAL [address] [place] [address] Khurram, Melanie [address] [place] [address] documented as of this encounter Visit Diagnoses Not on filedocumented in this encounter Additional Health Concerns Assessment Noted Time PHQ-9 Depression Total Score: 5 12/12/19 25 11:17 AM EDT documented as of this encounter Care Teams Heat Engineering Teacher Relationship Specialty Start Date End Date Geraldine Hess MD [address] [place] [phone] PCP - General Internal Medicine 12/07/22 Mook Singh FNP [address] [place] [address] Nurse Practitioner Family Medicine 05/22/23 documented as of this encounter
--- OUTSIDE RECORDS SUMMARY | 2025-02-27 13:16 | XMS_ITS | Encounter Summary ---
Author Organization [employer] Address [address] [place] [address] Care Team Providers Care Technical Customer Support Specialist Name Role Phone Geraldine Hess MD Primary Care Pro vider Mook Singh Unavailable Unavailable Reason for Visit * Reason Comments Med Refill Encounter Details Date Type Department Care Team (Late st Contact Info) Description 09/25/2024 Refill [facility] MEDICINE [address] [place], [place] [phone] Geraldine Hess MD [address] [place] [address] Social History Tobacco Use Types Packs/Day Years [...] Description 03/10/2025 3:30 PM EDT Clinical Support [facility] DIABETES/NUTRITION [address] [place] [address] [place] [address] 06/12/2025 1:00 PM EST Office Visit [facility] ADULT DENTAL [address] [place] [address] Khurram, Melanie [address] [place] [address] documented as of this encounter Visit Diagnoses Not on filedocumented in this encounter Additional Health Concerns Assessment Noted Time PHQ-9 Depression Total Score: 9 12/07/19 24 3:08 PM EDT documented as of this encounter Care Teams Technical Customer Support Specialist Relationship Specialty Start Date End Date Geraldine Hess MD [address] [place] [address] PCP - General Internal Medicine 12/07/22 Mook Singh FNP [address] [place] [address] Nurse Practitioner Family Medicine 05/22/23 documented as of this encounter
--- OUTSIDE RECORDS SUMMARY | 2025-02-27 13:16 | XMS_ITS | Clinical Summary ---
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 Blood Venous blood specimen / Unknown 12/20/2024 3:16 PM EDT 12/20/2024 4:24 PM EDT us Es Stafford NP LAB BLOOD ORDERABLES Final Resul t Performing Organization Address [facility] Co de Phone Number [facility] [address] [place] [address] [phone] * HIV-1/2 Antigen and Antibodies, Fourth Generation, with Reflexes (12/20/2024 3:16 PM EDT) Only the most recent of2 resultswithin the time period is included. [facility] HIV AB/AG Nonreactive Nonreactive [facility] Comment:HIV-1 p24 Ag and/or HIV-1/HIV-2 Ab not detected.A test result that is nonreactive does not exclude thepossibility of exposure to or infection with HIV-1 and/orHIV-2. Nonreactive results in this assay for individualswith prior exposure to HIV-1 and/or HIV-2 may be due toantigen and antibody levels that are below the limit ofdetection of this assay.The Familonet HIV Ag/Ab Combo assay result andsupplemental assay results should be interpreted inconjunction with the patient's clinical presentation,history and other laboratory results. If the results areinconsistent with clinical evidence, additional testing issuggested to confirm the result. Blood Venous blood specimen / Unknown 12/20/2024 3:16 PM EDT 12/20/2024 4:24 PM EDT us Es Stafford NP LAB BLOOD ORDERABLES Final Resul t Performing Organization Address [facility]/ZIP Co de Phone Number [facility] [address] [place] [address] [phone] * Hepatitis B Surface Antibody, Qualitative (12/20/2024 3:16 PM EDT) [facility] ~Hepatitis B Surface Antibody REACTIVE Nonreactive [facility] Comment:REACTIVE: > 11.99 mI U/mL Blood Venous blood specimen / Unknown 12/20/2024 3:16 PM EDT 12/20/2024 4:24 PM EDT us [place]ine Hein MD LAB BLOOD ORDERAB LES Final Result Performing Organization Address [facility]/ZIP Co de Phone Number [facility] [address] [place] [address] [phone] * (ABNORMAL) CBC (12/20/2024 3:16 PM EDT) [facility] White Blood Count 3.8(L) 4.8 - 10.8 X10*3/uL [facility] Red Blood Count 3.91(L) 4.20 - 5.50 X10*6/uL [facility] Hemoglobin 11.2(L) 12.0 - 16.0 g/dl [facility] Hematocrit 33.2(L) 37.0 - 47.0 % [facility] Mean Corpuscular Volume 84.9 80.0 - 98.0 fL [facility] Mean Corpuscular Hemoglobin 28.6 27.0 - 33.0 pg [facility] Mean Corpuscular HGB Conc 33.7 31.0 - 35.0 g/dl [facility] Red Cell Distribution Width 12.5 11.0 - 16.0 % [facility] Platelet Count 236 160 - 400 X10*3/uL [facility] Mean Platelet Volume 11.4 9.4 - 12.3 fL [facility] NRBC Pct Auto 0.0 0.0 - 0.2 /100WBC [facility] NRBC Abs Auto 0.000 0.0 - 0.012 X10*3/uL [facility] Blood Venous blood specimen / Unknown 12/20/2024 3:16 PM EDT 12/20/2024 4:24 PM EDT us [place]ine Hein MD LAB BLOOD ORDERAB LES Final Result [facility] [address] [place] [address] [phone] * Hemoglobin A1c (12/20/2024 3:16 PM EDT) Hemoglobin A1c 5.5 <6.0 % [facility] Comment:Hemoglobin A1C Refer ence Range Adults: 4.8 - 6.0 % Non diabetic: < 6.0 % Goal: < 7.0 %Additional Action Suggested: > 8.0 %Note: Hemoglobin A1c results are invalid for patients with abnormal amounts of HbF. Blood transfusions may impact the HbA1c concentration in the patient sample. Estimated Average Glucose 111 mg/dL [facility] Comment:eAG = Estimated ave rage glucose which is %A1C expressed asaverage glucose, using the formula of the E3G-QdopatpCkhzdtp Glucose study (ADAG), Diabetes Care, Vol.31,#8,Jan. 2007 Blood Venous blood specimen / Unknown 12/20/2024 3:16 PM EDT 12/20/2024 4:24 PM EDT us [place]ine Hein MD LAB BLOOD ORDERAB LES Final Result Performing Organization Address City/[facility]/ZIP Co de Phone Number [facility] [address] [place] [address] [phone] * Lipid Panel, Standard (12/20/2024 3:16 PM EDT) Triglycerides 56 <150 mg/dL [facility] Comment:Desirable Triglyceri de: less than 150 mg/dLBorderline High Triglyceride 150-199 mg/dLHigh Triglyceride: 200-499 mg/dLVery High Triglyceride: greater than or equal to 5OO mg/dL Cholesterol 142 <200 mg/dL [facility] Comment:Desirable Cholestero l: less than 200 mg/dLBorderline High Cholesterol: 200-239 mg/dLHigh Cholesterol: greater than 239 mg/dL LDL Cholesterol Calculated 83 <100 mg/dL [facility] Comment:Desirable LDL: less than 100 mg/dLNear Optimal/Above Optimal LDL: 110- 129 mg/dLBorderline High LDL: 130-159 mg/dLHigh LDL: 160-189 mg/dLVery High LDL: greater than or equal to 190 mg/dL HDL Cholesterol 48 >40 mg/dL [facility] Comment:Desirable HDL: great er than 40 mg/dL Note: This HDL assay may give artificially low results in patients with liver disease. Blood Venous blood specimen / Unknown 12/20/2024 3:16 PM EDT 12/20/2024 4:24 PM EDT us [place]ine Hein MD LAB BLOOD ORDERAB LES Final Result [facility] [address] [place] [phone] * (ABNORMAL) Comprehensive Metabolic Panel (12/20/2024 3:16 PM EDT) Sodium 138 135 - 145 mmol/L [facility] Potassium 4.4 3.3 - 5.1 mmol/L [facility] Chloride 107 96 - 108 mmol/L [facility] Carbon Dioxide 25 22 - 29 mmol/L [facility] Anion Gap 10(L) 12 - 20 [facility] Urea Nitrogen (BUN) 8(L) 9 - 16 mg/dL [facility] Creatinine, Serum 0.75 0.5 - 1.4 mg/dL [facility] Estimated Glomerular Filt Rate >60 [facility] Comment:Chronic Kidney Disea se: Estimated GFR < 60 mL/min/1.87z6Ejwtst Kidney Disease: Estimated GFR < 15 mL/min/1.73m2 Glucose 99 60 - 115 mg/dL [facility] Calcium 8.9 8.4 - 10.2 mg/dL [facility] Bilirubin, Total 0.3 0.0 - 1.0 mg/dL [facility] Aspartate Amino Transferase 24 5 - 31 U/L [facility] Alanine Aminotransferase 24 0 - 31 U/L [facility] Total Protein 7.0 6.5 - 8.0 g/dL [facility] Albumin Level 4.1 3.5 - 5.0 g/dL [facility] Alkaline Phosphatase 65 39 - 117 U/L [facility] Blood Venous blood specimen / Unknown 12/20/2024 3:16 PM EDT 12/20/2024 4:24 PM EDT us [place]ine Hein MD LAB BLOOD ORDERAB LES Final Result Performing Organization Address [facility]/ZIP Co de Phone Number [facility] [address] [place] [phone] * HPV DNA, Low/High Risk (12/18/2024 10:19 AM EDT) HPV High Risk Negative Negative [facility] HPV Genotype 16 Negative Negative [facility] HPV Genotype 18 Negative Negative [facility] Comment:HPV testing performe d at [facility] (CLIA#[id number]), [address] [place] [phone].Testing for HPV was performed using the Roomtag JJ 6800system. The presence of HPV in the female genital tract isassociated with a number of diseases, including cervicalcarcinoma. The HPV DNA high risk pool tests for HPV 31, 33,35, 39, 45, 51, 52, 56, 58, 59, 66 and 68. The testing forHPV 16 and 18 genotypes has also been performed. A positiveresult indicates detection of nucleic acid sequences fromone or more subtypes, whereas a negative result indicatessuch sequences were not detected. 12/18/2024 10:1 9 AM EDT 12/19/2024 8:15 AM EDT us Gregory James [facility] LAB BLOOD ORDERABLES Nelly ma Result [facility] [address] [place] [address] [phone] * Pap Smear (12/18/2024 10:19 AM EDT) Swab Cervix uteri structure / Unknown 12/18/2024 10:19 AM EDT 12/19/2024 8:15 AM EDT Graham [facility] - 12/24/2024 8:01 AM EDT ----- ------- Name: Robert Mcgill Age/Sex: 39/F : 1985 Unit#: [id number] Attend Dr: GREGORY JAMES CNM Re12/18/24 Status: DEP [facility] ----- ------- SPEC : [id number] RECD: 12/19/24 STATUS: NAN PINA NUM: [id number] JESSY: 12/18/24-[address] [facility] [address]: GREGORY JAMES CNM ENTERED: 12/19/24 SP TYPE: Pap Smr OTHR DR: ORDERED: Pap Smear Interpretation Satisfactory for evaluation. Negative for intraepithelial lesion or malignancy. No endocervical cells seen. HPV High Risk: Negative HPV Genotyping 16: Negative HPV Genotyping 18: Negative Clinical Information LMP: Unknown date Previous PAP test: Unknown date/findings Other history: Implantable control Material Received ThinPrep-Cervical PAP Disclaimer As of April 17, 2024, the technical services to include automated prescreening performed by the ThinPrep Imaging System, PAP screening and HPV testing will be performed at [facility] ([facility] #[id number]), [address] [place] [address]. Testing for HPV was performed using the Elsie JJ 6800 system. The presence of HPV in the female genital tract is associated with a number of diseases, including cervical carcinoma. The HPV DNA high risk pool tests for HPV 31, 33, 35, 39, 45, 51, 52, 56, 58, 59, 66 and 68. The testing for HPV 16 and 18 genotypes has also been performed. A positive result indicates detection of nucleic acid sequences from one or more subtypes, whereas a negative result indicates such sequences were not detected. All professional services are performed by [facility] ([address] [place] [address]; ; [place] #[id number]). The PAP Test is a screening procedure with the inherent possibility of both false negative and false positive results. Results should be interpreted in the context of historic and current clinical findings. Reliability of the PAP Test is enhanced by performing the test on a regular repetitive basis. CONTINUED ON NEXT PAGE ----- ------- Name: Robert Mcgill Age/Sex: 39/F : 1985 Unit#: [id number] Attend Dr: GREGORY JAMES CNM Re12/18/24 Status: DEP REF Location: .HHCLNP Disch: ----- ------- SPEC : [id number] RECD: 12/19/24 STATUS: NAN PINA NUM: [id number] JESSY: 12/18/24-[address] [facility] [address]: GREGORY JAMES CNM ENTERED: 12/19/24 ALAN TYPE: Rey MORA DR: ORDERED: Pap Smear ----- ------- Signed (signature on file) JorgeMARISSA Donaldson ([facility]) 12/24/24 0801 ----- ------- END OF REPORT us Gregory James CNM LAB CYTOLOGY ORDERABLES F inal Result [facility] [address] [place] [address] [phone] * GA REMOVAL NON-BIODEGRADABLE DRUG DELIVERY IMPLANT (12/18/2024 10:00 AM EDT) Gregory Conti CNM - 12/18/2024 10:00 AM EDT Gregory James CNM 12/18/2024 10:37 AM Insertion/Removal of Contraceptive Capsule Date/Time: 12/18/2024 10:00 AM Performed by: Gregory James CNM Authorized by: Gregory James CNM Confirmed correct patient, procedure, site, and patient consented: Yes Participating Staff: [place] James Consent: Consent obtained: Verbal and written Consent given by: Patient Procedural risks and benefits discussed: Yes Patient questions answered: yes Patient agrees, verbalizes understanding, and wants to proceed: yes Educational handouts given: yes Instructions and paperwork completed: yes Indication: Indication: presence of non-biodegradable drug delivery implant Pre-procedure: Pre-procedure timeout performed: yes Prepped with: povidone-iodine Local anesthetic: 2ml 2% lidocaine. The site was cleaned and prepped in a sterile fashion: yes Procedure: Procedure: Removal Small stab incision was made in arm: yes Left/right: Left Comments: Nexplanon removed intact, easily. Report redness, pain or swelling at removal site. Report irregular bleeding or missed menses. Gregory [facility] ORDERAB LES Final Result from Last 3 Months Insurance * Guarantor: Robert Mcgill Account Type Relation to Patient Date of Phone Billing Address Personal/Family Self [address] [id number] [facility] (MEDICAID) * Guarantor: Robert Mcgill Account Type Relation to Patient Date of Phone Billing Address Personal/Family Self [address] [phone] * Guarantor: Robert Mcgill Account Type Relation to Patient Date of Phone Billing Address Personal/Family Self [address] [address] * Guarantor: Robert Mcgill Account Type Relation to Patient Date of Phone Billing Address Personal/Family Self [address] [address] Care Teams Grinder And Plater Relationship Specialty Start Date End Date [place]ine Hess MD [address] [place] [address] PCP - General Internal Medicine 12/07/22 Mook Singh FNP [address] [place] [address] Nurse Practitioner Family Medicine 05/22/23
--- OUTSIDE RECORDS SUMMARY | 2025-02-27 13:16 | XMS_ITS | Encounter Summary ---
Author Organization [employer] Address [address] [place] [phone] Care Team Providers Care Teacher Hearing Impaired Name Role Phone [place] Hess MD Primary Care Pro vider Mook Singh Unavailable Unavailable Reason for Visit * Reason Onset Date Comments Nurse Triage 02/26/2025 Encounter Details Date Type Department Care Team (Late st Contact Info) Description 02/26/2025 Telephone [facility] [address] [place], [place] [phone] [place]ine Hess MD [address] [place] [phone] Nurse Triage Social History Tobacco Use Types [...] Telephone Encounter - Mariah Pride RN - 02/26/2025 3:55 PM EDT Images from the original note were not included. Assessment: Patient [facility] c/o left pelvic pain and left flank pain as well as blood in urine and hasn't been able to urinate, all day . Reports that she urinated this morning a, normal amount but hasn't gone again since. States hasn't tried to go again. Pt confirms she has been drinking water all day. Pt requesting to give urine sample now as she states won't be able to give sample at scheduled appt time. Informed pt I will take urine sample now but she has to stay and wait for appt. Pt agreeable. 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 Continue to hydrate. Mariah Pride RN [1] No Known Allergies [2] Current Outpatient Medications Medication Sig Dispense Refill clonazePAM (KlonoPIN) 0.5 MG tablet Gardasil 9 suspension prefilled syringe vaccine prefilled syringe INJECT INTRAMUSCULARLY AT PHARMACY 0.5 mL 0 sertraline (Zoloft) 100 MG tablet Take 1 tablet by mouth Once per day. SUMAtriptan (Imitrex) 25 MG tablet Take 1 tablet (25 mg) by mouth 1 (one) time if needed for migraine. May repeat dose once in 2 hours if no relief. Do not exceed 2 doses in 24 hours. 9 tablet 1 ulipristal (Sol) 30 mg tablet Take one tablet by mouth up to five days after sex. Do not use more than once per menstrual cycle. If repeat dose is needed in same cycle, please contact prescriber. 1 tablet 11 No current facility-administered medications for this visit. * Telephone Encounter - Deisi Elizalde RN - 02/26/2025 12:25 PM EDT Triage call with [facility] [place] [id number], Jhonatan. Pt reports noted blood in the urine this morning. Pt reports a pinkish to tea colored urine. Pt reports strong odor, pain left lower quadrant and burning with urination. Pt is advised to increase liquid intake to 6-8 glasses daily. Pt is offered to come to [facility] which is open till 8pm this evening. Pt agrees to come to [facility] and agrees with disposition. Insurance is verified as active . Protocol Used: Urine - Blood In (Adult) Protocol-Based Disposition: See in Office or Video Visit Today Positive Triage Question: * Pain or burning with passing urine (urination) * All higher-acuity triage questions were negative Care Advice Discussed: * Drink Extra Fluids * Reasons To Call Back - Fever or pain occurs - You become worse * Telephone Encounter - Sushil Obando - 02/26/2025 11:34 AM EDT Symptom: Urine - Blood In Outcome: Schedule an urgent appointment (within 1 hour) or talk to a nurse or provider soon Reason: Caller denied all higher acuity questions Please contact pt at [phone]. (Equatorial [place] Speaker) documented in this encounter Plan of Treatment Upcoming Encounters Date Type Department Care Team (Late st Contact Info) Description 03/10/2025 3:30 PM EDT Clinical Support [facility] [address] [place] [address] [place] [address] 06/12/2025 1:00 PM EST Office Visit [facility] [address] [place] [address] Khurram, Melanie [address] [place] [address] documented as of this encounter Visit Diagnoses Not on filedocumented in this encounter Additional Health Concerns Assessment Noted Time PHQ-9 Depression Total Score: 5 12/12/19 25 11:17 AM EDT documented as of this encounter Care Teams Teacher Hearing Impaired Relationship Specialty Start Date End Date [place] Hess MD [address] [place] [address] PCP - General Internal Medicine 12/07/22 Mook Singh FNP [address] [place] [address] Nurse Practitioner Family Medicine 05/22/23 documented as of this encounter
--- OUTSIDE RECORDS SUMMARY | 2025-02-27 13:16 | XMS_ITS | Encounter Summary ---
Author Organization [facility] Address [address] [facility] [address] [place] [address] Care Team Providers Care Storage Battery Inspector Name Role Phone [place] Hess MD Primary Care Pro vider Mook Singh Unavailable Unavailable Encounter Details Date Type Department Care Team ([facility] st Contact Info) Description 12/24/2024 Results Follow-Up [facility] [address] [place], [place] [phone] Sushma Hogan, MARGIE [address] [place] [address] Pap Smear Social History Tobacco Use Types Packs/Day Years [...] as of this encounter Miscellaneous Notes * Result Encounter Note - Sushma Hogan CNM - 12/24/2024 8:03 AM EDT Please let Robert know her pap was normal, HPV negative. We can repeat in 5 years. Thanks! documented in this encounter Plan of Treatment Upcoming Encounters Date Type Department Care Team (Late st Contact Info) Description 03/10/2025 3:30 PM EDT Clinical Support [facility] [address] [place] [address] [place] [address] 06/12/2025 1:00 PM EST Office Visit [facility] [address] [place] [address] Melanie Paulson [address] [place] [address] documented as of this encounter Visit Diagnoses Not on filedocumented in this encounter Additional Health Concerns Assessment Noted Time PHQ-9 Depression Total Score: 5 12/12/19 25 11:17 AM EDT documented as of this encounter Care Teams Storage Battery Inspector Relationship Specialty Start Date End Date [place] Hess MD [address] [place] [address] PCP - General Internal Medicine 12/07/22 Mook Singh FNP [address] [place] [address] Nurse Practitioner Family Medicine 05/22/23 documented as of this encounter
--- OUTSIDE RECORDS SUMMARY | 2025-02-27 13:16 | XMS_ITS | Clinical Summary ---
Author Organization [employer] [facility] Address [address] [place] [address] Care Team Providers Care Chief Optometry Service Name Role Phone Unavailable Primary Care Provider [...] 05/29/2022 Social Influencers of Health Screening 05/29/2022 Depression Screening 06/26/2024 COVID-19 Vaccine (2023-2 5 season) 2025 Influenza Vaccine (#1) 2025 HIB Vaccines Aged [...]
--- OUTSIDE RECORDS SUMMARY | 2025-02-27 13:16 | XMS_ITS | Encounter Summary ---
Author Organization [employer] Address [address] [place] [address] Care Team Providers Care Manager Enterprise Content Management Name Role Phone Geraldine Hess MD Primary Care Pro vider Mook Singh Unavailable Unavailable Reason for Visit * Reason Onset Date Comments Appointment Request 01/22/2025 Encounter Details Date Type Department Care Team ([facility] st Contact Info) Description 01/22/2025 Telephone [facility] [address] [place], [place] [phone] Geraldine Hess MD [address] [place] [address] Appointment Request Social History Tobacco Use Types [...] encounter Miscellaneous Notes * Telephone Encounter - Sushil Obando - 01/22/2025 3:08 PM EDT Tc from pt requesting to reschedule nutrition appt from 01/27. Please contact pt at [phone]. (Malay Speaker) documented in this encounter Plan of Treatment Upcoming Encounters Date Type Department Care Team (Late st Contact Info) Description 03/10/2025 3:30 PM EDT Clinical Support [facility]NUTR[facility] [address] [place] [address] [place] [address] 06/12/2025 1:00 PM EST Office Visit [facility] ADULT DENTAL [address] [place] [address] Melanie Paulson [address] [place] [address] documented as of this encounter Visit Diagnoses Not on filedocumented in this encounter Additional Health Concerns Assessment Noted Time PHQ-9 Depression Total Score: 5 12/12/19 25 11:17 AM EDT documented as of this encounter Care Teams Manager Enterprise Content Management Relationship Specialty Start Date End Date Geraldine Hess MD [address] [place] [address] PCP - General Internal Medicine 12/07/22 Mook Singh FNP [address] [place] [address] Nurse Practitioner Family Medicine 05/22/23 documented as of this encounter
[2025-02-27 14:03] LABS: CT PCR Urine NOT DETECTED (Not Detect.); NG PCR Urine NOT DETECTED (Not Detect.)
== END 2025-02-26 11:37 | disposition home or self-care (01) ==
LOC: HO.HHCLNP 11:36
PROVIDERS: Visit Provider Nurse Practitioner Primary Care
DX: R31.9 Hematuria, unspecified (principal)
CPT/HCPCS: 87086; 87491; 87591

== ENCOUNTER 2025-04-03 14:08 | Outpatient (REF) | payer OTHER, SELFPAY ==
--- NOTE | ~2025-04-03 | XR_ITS ---
EXAMINATION: XR CHEST CLINICAL INFORMATION: cough, subjective fever COMPARISON: 04/01/2024. TECHNIQUE: 2 views of the chest were obtained. FINDINGS: The cardiac, hilar, and mediastinal contours are normal. The lungs are clear bilaterally. There is no pneumothorax or pleural effusion. There is no focal osseous or soft tissue abnormality. XR/XR chest 2V IMPRESSION: Normal chest. Electronically signed by: Pan Vargas MD 04/03/2025 03:09 PM EDT
[2025-04-03 18:52] LABS: Appearance Urine Clear; Glucose Urine UA Negative (Negative); PH 7.0 (5.0-9.0); Specific Gravity - Urine <= 1.005 (1.005-1.025); UMIC TRIGGER UACC YES
[2025-04-04 11:20] LABS: Chlamydia pneumoniae PCR Not Detected (Not Detect.); Coronavirus 229E PCR Not Detected (Not Detect.); Coronavirus HKU1 PCR Not Detected (Not Detect.); Coronavirus NL63 PCR Not Detected (Not Detect.); Coronavirus OC43 PCR Not Detected (Not Detect.); RSV PCR Not Detected (Not Detect.); Rhino/Enterovirus PCR Detected (Not Detect.); SARS-CoV-2 PCR Not Detected (Not Detect.)
[2025-04-04 11:24] LABS: Influenza A H1 PCR Not Detected (Not Detect.); Influenza A H1-2009 PCR Not Detected (Not Detect.); Influenza A H3 PCR Not Detected (Not Detect.)
== END 2025-04-03 14:09 | disposition home or self-care (01) ==
LOC: HO.HHCL 14:08
PROVIDERS: PCP Student in an Organized Health Care Education/Training Program; Visit Provider Student in an Organized Health Care Education/Training Program
DX: R50.9 Fever, unspecified (principal); R05.9 Cough, unspecified
CPT/HCPCS: 71046; 81001; 87633

== ENCOUNTER → 2025-04-03 14:16 | Outpatient (BNV) | payer OTHER, SELFPAY | PROVIDERS: PCP Student in an Organized Health Care Education/Training Program; Visit Provider Radiology Diagnostic Radiology | DX: R05.9 Cough, unspecified (principal); R50.9 Fever, unspecified | CPT/HCPCS: 71046 ==

== ENCOUNTER 2025-04-10 08:50 | Outpatient (REF) | payer OTHER, SELFPAY ==
--- OUTSIDE RECORDS SUMMARY | 2025-04-10 09:42 | XMS_ITS | Clinical Summary ---
Author Organization [facility] Address [address] [place] [address] Care Team Providers Care Human Resources Officer Name Role Phone Unavailable Primary Care Provider [...] Cervical Cancer Screening: P ap Smear 2004 HPV Vaccines (1 - 3-dose SCD M series) 2010 HIV Screening 05/29/2022 Hepatitis C Screening 05/29/2022 Social Influencers of Health Screening 05/29/2022 Depression Screening 06/26/2024 COVID-19 Vaccine (1 - 2023-2 5 season) 2025 Influenza Vaccine (#1) 2025 RSV Immunization Adult Patie nts (1 - 1-dose 75+ series) 2058 HIB Vaccines Aged Out No longer eligi [...]
[2025-04-10 11:31] LABS: MANUAL DIFF FLAG NO
[2025-04-10 11:39] LABS: Hematocrit 37.3 % (37.0-47.0); Hemoglobin 12.4 g/dl (12.0-16.0); Imm Gran Abs Auto 0.00 X10*3/uL (0.00-0.03); Imm Gran Pct Auto 0.0 % (0.0-0.4); Lymphocytes Absolute Auto 1.2 X10*3/uL (1.2-4.9); Mean Corpuscular HGB Conc 33.2 g/dl (31.0-35.0); Mean Corpuscular Hemoglobin 27.8 pg (27.0-33.0); Mean Corpuscular Volume 83.6 fL (80.0-98.0); NRBC Abs Auto 0.000 X10*3/uL (0.0-0.012); NRBC Pct Auto 0.0 /100WBC (0.0-0.2); Platelet Count 272 X10*3/uL (160-400); Red Blood Count 4.46 X10*6/uL (4.20-5.50); White Blood Count 2.9 X10*3/uL (4.8-10.8)
[2025-04-10 12:01] LABS: Alanine Aminotransferase 17 U/L (0-31); Albumin Level 4.2 g/dL (3.5-5.0); Alkaline Phosphatase 55 U/L (39-117); Anion Gap 10 (12-20); Aspartate Amino Transferase 22 U/L (5-31); Blood Urea Nitrogen 10 mg/dL (9-16); Calcium 9.2 mg/dL (8.4-10.2); Carbon Dioxide 28 mmol/L (22-29); Chloride 107 mmol/L (96-108); Estimated Glomerular Filt Rate > 60; Potassium 4.5 mmol/L (3.3-5.1); Sodium 140 mmol/L (135-145); Total Protein 7.3 g/dL (6.5-8.0)
[2025-04-10 12:54] LABS: HIV Num 1 0.07 S/CO (0.00-0.99)
[2025-04-11 13:58] LABS: Hepatitis B Viral DNA Qn - cp NOT DETECTED Log IU/mL (NOT DETECTED); Hepatitis B Viral DNA Qn-IU/mL NOT DETECTED (NOT DETECTED)
[2025-04-11 15:42] LABS: HIV RNA PCR Qn Copies NOT DETECTED copies/mL (NOT DETECTED); HIV RNA PCR Qn Log Copies NOT DETECTED (NOT DETECTED)
[2025-04-11 20:09] LABS: HCV Log PCR <1.18 NOT DETECTED Log IU/mL (NOT DETECTED); HepC Viral Load <15 NOT DETECTED IU/mL (NOT DETECTED)
== END 2025-04-10 08:51 | disposition home or self-care (01) ==
LOC: HO.HHCL 08:50
PROVIDERS: Nurse Practitioner Family; PCP Student in an Organized Health Care Education/Training Program; Visit Provider Student in an Organized Health Care Education/Training Program
DX: R50.9 Fever, unspecified (principal); Z20.2 Contact with and (suspected) exposure to infections with a predominantly sexual mode of transmission; Z11.4 Encounter for screening for human immunodeficiency virus [HIV]; Z01.84 Encounter for antibody response examination; Z11.59 Encounter for screening for other viral diseases
CPT/HCPCS: 36415; 80053; 85025; 86592; 87389; 87517; 87522; 87536

== ENCOUNTER 2025-05-06 10:52 | Outpatient (REF) | payer OTHER, SELFPAY ==
--- NOTE | ~2025-05-06 | US_ITS ---
CLINICAL HISTORY: pelvic pain US pelvis transabdominal and transvaginal Comparison: None Findings: Transabdominal scanning performed for overall anatomy. Transvaginal scanning performed for additional detail. LMP: 04/07/2025 Anteverted uterus, normal size and echotexture, measuring 9.1 x 5.0 x 5.5 cm. Incidental nabothian cyst. Minimal fluid in the endocervical canal. Normal endometrium, measuring 4.0 mm thickness Uterine fibroids: Superior fundal 3.1 x 2.3 x 3.1 cm Posterior fundal right 2.2 x 1.7 x 1.9 cm Anterior fundal intramural 1.3 x 1.0 x 1.1 cm Posterior fundal intramural 1.9 x 1.1 x 1.3 cm The right ovary measures, 4.5 x 2.4 x 2.7 cm. Probable dominant follicle measuring 1.9 x 2.0 x 2.1 cm. The left ovary measures, 3.5 x 2.2 x 2.0 cm. Normal sonographic appearance left ovary. Normal color Doppler with spectral tracing. No adnexal masses or fluid collections. No free fluid. Impression: 1. Leiomyomatous uterus. 2. Normal thickness endometrium 3. Follicular activity both ovaries with a dominant follicle on the right suspected. This document has been electronically signed by: Konrad Robles MD on 05/06/2025 18:53:06
--- OUTSIDE RECORDS SUMMARY | 2025-05-06 13:00 | XMS_ITS | Encounter Summary ---
Author Organization [employer] Address [address] [place] [address] [place] [address] Care Team Providers Care Grain Merchandiser Name Role Phone Geraldine Hess MD Primary Care Pro vider Mook Singh Unavailable Unavailable Reason for Visit * Reason Comments Med Refill Encounter Details Date Type Department Care Team (Late st Contact Info) Description 09/25/2024 Refill [facility] MEDICINE [address] [place], [place] [phone] Geraldine Hess MD [address] [place] [address] Social History Tobacco Use Types Packs/Day Years [...] Care Team (Late st Contact Info) Description 06/12/2025 12:45 PM EST Office Visit [facility] ADULT DENTAL [address] [place] [address] Melanie Paulson [address] [place] [address] 06/17/2025 9:45 AM EST Office Visit [facility] MEDICINE [address] [place] [address] Geraldine Hess MD [address] [place] [address] documented as of this encounter Visit Diagnoses Not on filedocumented in this encounter Additional Health Concerns Assessment Noted Time PHQ-9 Depression Total Score: 9 12/07/19 24 3:08 PM EDT documented as of this encounter Care Teams Grain Merchandiser Relationship Specialty Start Date End Date Geraldine Hess MD [address] [place] [address] PCP - General Internal Medicine 12/07/22 Mook Singh FNP [address] [place] [address] Nurse Practitioner Family Medicine 05/22/23 documented as of this encounter
--- OUTSIDE RECORDS SUMMARY | 2025-05-06 13:00 | XMS_ITS | Encounter Summary ---
Author Organization [employer] Address [address] [place] [address] [place] [address] Care Team Providers Care Hotel Supplies Salesperson Name Role Phone Geraldine Hess MD Primary Care Pro vider Mook Singh Unavailable Unavailable Reason for Visit * Reason Comments Med Refill Encounter Details Date Type Department Care Team ([facility] st Contact Info) Description 09/13/2024 Refill [facility] MEDICINE [address] [place], [place] [phone] Geraldine Hess MD [address] [place] [address] Social History Tobacco Use Types Packs/Day Years [...] Description 06/12/2025 12:45 PM EST Office Visit [facility] ADULT DENTAL [address] [place] [address] Melanie Paulson [address] [place] [address] 06/17/2025 9:45 AM EST Office Visit [facility] MEDICINE [address] [place] [address] Geraldine Hess MD [address] [place] [address] documented as of this encounter Visit Diagnoses Not on filedocumented in this encounter Additional Health Concerns Assessment Noted Time PHQ-9 Depression Total Score: 9 12/07/19 24 3:08 PM EDT documented as of this encounter Care Teams Hotel Supplies Salesperson Relationship Specialty Start Date End Date Geraldine Hess MD [address] [place] [address] PCP - General Internal Medicine 12/07/22 Mook Singh FNP [address] [place] [address] Nurse Practitioner Family Medicine 05/22/23 documented as of this encounter
--- OUTSIDE RECORDS SUMMARY | 2025-05-06 13:01 | XMS_ITS | Encounter Summary ---
Author Organization [employer] Address [address] [place] [address] Care Team Providers Care Silk Screen Layout Drafter Name Role Phone Geraldine Hess MD Primary Care Pro vider Mook Singh Unavailable Unavailable Reason for Visit * Reason Comments Med Refill Encounter Details Date Type Department Care Team (Late st Contact Info) Description 07/10/[address] [facility] MEDICINE [address] [place], [place] [phone] Geraldine Hess MD [address] [place] [address] High risk heterosexual behavior Social History Tobacco [...] Description 06/12/2025 12:45 PM EST Office Visit [facility] ADULT DENTAL [address] [place] [address] Melanie Paulson [address] [place] [address] 06/17/2025 9:45 AM EST Office Visit [facility] MEDICINE [address] [place] [address] Geraldine Hess MD [address] [place] [address] documented as of this encounter Visit Diagnoses Diagnosis High risk heterosexual behavior documented in this encounter Additional Health Concerns Assessment Noted Time PHQ-9 Depression Total Score: 9 12/07/19 24 3:08 PM EDT documented as of this encounter Care Teams Silk Screen Layout Drafter Relationship Specialty Start Date End Date Geraldine Hess MD [address] [place] [address] PCP - General Internal Medicine 12/07/22 Mook Singh FNP [address] [place] [address] Nurse Practitioner Family Medicine 05/22/23 documented as of this encounter
--- OUTSIDE RECORDS SUMMARY | 2025-05-06 13:01 | XMS_ITS | Encounter Summary ---
Author Organization [employer] Address [address] [place] [address] Care Team Providers Care Barrel Repairer Name Role Phone Geraldine Hess MD Primary Care Pro vider Mook Singh Unavailable Unavailable Reason for Visit * Reason Onset Date Comments Appointment Request 01/22/2025 Encounter Details Date Type Department Care Team ([facility] st Contact Info) Description 01/22/2025 Telephone [facility] MEDICINE [address] [place], [place] [phone] Geraldine Hess MD [address] [place] [address] Appointment Request Social History Tobacco Use Types [...] appt from 01/27. Please contact pt at [phone]. (Maori Speaker) documented in this encounter Plan of Treatment Upcoming Encounters Date Type Department Care Team (Late st Contact Info) Description 06/12/2025 12:45 PM EST Office Visit [facility] ADULT DENTAL [address] [place] [address] Khurram, Melanie [address] [place] [address] 06/17/2025 9:45 AM EST Office Visit [facility] MEDICINE [address] [place], [place] [phone] Geraldine Hess MD [address] [place] [address] documented as of this encounter Visit Diagnoses Not on filedocumented in this encounter Additional Health Concerns Assessment Noted Time PHQ-9 Depression Total Score: 5 12/12/19 25 11:17 AM EDT documented as of this encounter Care Teams Barrel Repairer Relationship Specialty Start Date End Date Geraldine Hess MD [address] [place] [address] PCP - General Internal Medicine 12/07/22 Mook Singh FNP [address] [place] [address] Nurse Practitioner Family Medicine 05/22/23 documented as of this encounter
--- OUTSIDE RECORDS SUMMARY | 2025-05-06 13:01 | XMS_ITS | Encounter Summary ---
Author Organization [employer] Address [address] [place] [address] Care Team Providers Care Production Planner Name Role Phone Geraldine Hess MD Primary Care Pro vider Mook Singh Unavailable Unavailable Reason for Visit * Reason Onset Date Comments Appointment Request 06/02/2023 Encounter Details Date Type Department Care Team ([facility] st Contact Info) Description 06/02/2023 Telephone [facility] MEDICINE [address] [place], [place] [phone] Geraldine Hess MD [address] [place] [address] Appointment Request Social History Tobacco Use Types [...] from pt requesting TP with New Pcp. Automobile Service Writer does see recall and tried scheduling but no availableslot was found. Please contact pt @ [phone] Japanese Speaker documented in this encounter Plan of Treatment Upcoming Encounters Date Type Department Care Team (Late st Contact Info) Description 06/12/2025 12:45 PM EST Office Visit [facility] ADULT DENTAL [address] [place] [address] Melanie Paulson [address] [place] [address] 06/17/2025 9:45 AM EST Office Visit [facility] MEDICINE [address] [place] [address] Geraldine Hess MD [address] [place] [address] documented as of this encounter Visit Diagnoses Not on filedocumented in this encounter Additional Health Concerns Assessment Noted Time PHQ-9 Depression Total Score: 12 023 1:55 PM EST documented as of this encounter Care Teams Production Planner Relationship Specialty Start Date End Date Geraldine Hess MD [address] [place] [address] PCP - General Internal Medicine 12/07/22 Mook Singh FNP [address] [place] [address] Nurse Practitioner Family Medicine 05/22/23 documented as of this encounter
--- OUTSIDE RECORDS SUMMARY | 2025-05-06 13:01 | XMS_ITS | Clinical Summary ---
Author Organization [facility] Address [address] [place] [address] Care Team Providers Care Applications Engineering Manager Name Role Phone Unavailable Primary Care [...] Depression Screening 06/26/2024 COVID-19 Vaccine (1 - 2024-2 6 season) 2025 Influenza Vaccine (#1) 2025 RSV [...]
--- OUTSIDE RECORDS SUMMARY | 2025-05-06 13:01 | XMS_ITS | Clinical Summary ---
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 not be used for the evaluationof suspected sexual abuse or for other medico-legalindications. Additional testing is recommended in anycircumstance when false positive or false negative resultscould lead to adverse medical, social or psychologicalconsequences. Urine (Urine, Random) 02/26/2025 5:28 PM EDT 02/27/2025 11:38 AM EDT Lizbet Borjas [facility] URINE ORDERABLES Final Resul t Performing Organization Address [facility] Co de Phone Number [facility] [address] [place] [phone] * Culture, Urine, Routine (02/26/2025 5:06 PM EDT) Urine Urine specimen obtained by clean catch procedure / Unknown 02/26/2025 5:06 PM EDT 02/27/2025 11:38 AM EDT Comment:UACC Narrative [facility] - 02/28/2025 9:32 AM EDT Urine Culture No growth. Specimen Source: Urine clean catch Lizbet Borjas [facility] MICROBIOLOGY - GENERAL ORDER SHAHRAM Final Result Performing Organization Address [facility] Co de Phone Number [facility] [address] [place] [phone] * (ABNORMAL) POCT Urinalysis (02/26/2025 3:48 PM EDT) Color, UA Light Yellow Clarity, UA Clear Glucose, UA Negative Bilirubin, UA Negative Ketones, UA Negative Spec Grav, UA 1.020 Blood, UA Positive(A) Negative, None Detected pH, UA 7.0 Protein, UA Negative Urobilinogen, UA 0.2 Leukocytes, UA Trace Negative, Rare, Trace Nitrite, UA Negative Negative, None Detected QC Media Lot # [id number] Lot# Expiration Date [id number] Urine 02/26/2025 3:48 PM EDT Geraldine Hein MD POINT OF CARE PROMISE T ENTER/EDIT ORDERABLES Final Result * BI US Breast Complete Bilateral (01/24/2025 8:00 AM EDT) Anatomical Region Laterality Modality Breast Bilateral Ultrasound 01/24/2025 8:00 AM EDT Narrative 01/24/2025 9:03 AM EDT [facility] [address] [place] [address] Ultrasound Report Signed Patient: Robert Mcgill R#: [id number] : 1985 Acct:[id number] Age/Sex: 39 / F ADM Date: 01/24/25 Loc: HO.MAMMO Attending Dr: Geraldine Hein MD Ordering Physician: Geraldine Hess MD Date of Service: 01/24/25 Procedure(s): US breast BI complete Accession Number(s): [id number] cc: Geraldine Hess MD EXAMINATION: US SCREENING [...] signed by Jovita Hair DO in OV> 01/24/25900 DD/ 9 TD/TT: 01/24/25824 [employer] Ii Assembler: Procedure Note Donotuseinterpreter, Image - 01/24/2025 [facility] [address] [place] [address] Ultrasound Report Signed Patient: Robert Mcgill R#: [id number] : 1985Acct:[id number] Age/Sex: 39 / FADM Date: 01/24/25 Loc: HO.MAMMO Attending Dr: Geraldine Hein MD Ordering Physician: Geraldine Hess MD Date of Service: 01/24/25 Procedure(s): US breast BI complete Accession Number(s): [id number] cc: Geraldine Hess MD EXAMINATION: US SCREENING [...] signed by Jovita Hair DO in OV> 01/24/25900 DD/ 9 TD/TT: 01/24/25824 [employer] Ii Assembler: us Geraldine Hein MD IMG US PROCEDURES Final Result * HPV DNA, Low/High Risk (12/18/2024 10:19 AM EDT) HPV High Risk Negative Negative [facility] HPV Genotype 16 Negative Negative [facility] HPV Genotype 18 Negative Negative [facility] Comment:HPV testing performe d at [facility] (CLIA#[id number]), [address] [place] [address].Testing for HPV was performed using the ProNoxis JJ ObsEva0system. The presence of HPV in the female [...] EDT 12/19/2024 8:15 AM EDT us Gregory [facility]OU[facility] LAB BLOOD ORDERABLES Nelly ma Result [facility] [address] [place] [phone] * Pap Smear (12/18/2024 10:19 AM EDT) Swab Cervix uteri structure / Unknown 12/18/2024 10:19 AM EDT 12/19/2024 8:15 AM EDT Narrative [facility] - 12/24/2024 8:01 AM EDT ----- ------- Name: Robert Mcgill Age/Sex: 39/F [facility] 1985 [id number] [id number] Attend Dr: GREGORY JAMES CNM Re12/18/24 Status: [facility] REF Location: [facility] Disch: ----- ------- SPEC : [id number] RECD: 12/19/24 STATUS: NAN PINA NUM: [id number] JESSY: 12/18/24-[address] [facility] [address]: GREGORY JAMES CNM ENTERED: 12/19/24 SP TYPE: Pap Smr OT DR: ORDERED: Pap Smear Interpretation Satisfactory for [...] and HPV testing will be performed at [facility] (IA #[id number]), [address] [place] [address]. Testing for HPV was performed using the [...] detected. All professional services are performed by [facility] ([address] [place] [phone]; ; CLIA #[id number]). The PAP Test is a screening procedure with the inherent possibility of both false negative and false positive results. Results should be interpreted in the context of historic and current clinical findings. Reliability of the PAP Test is enhanced by performing the test on a regular repetitive basis. CONTINUED ON NEXT PAGE ----- ------- Name: Robert Mcgill Age/Sex: 39/F : 1985 Unit#: [id number] Attend Dr: GREGORY JAMES CNM Re12/18/24 Status: DEP REF Location: HO.HHCLNP Disch: ----- ------- SPEC : [id number] RECD: 12/19/24 STATUS: NAN PINA NUM: [id number] JESSY: 12/18/24-[address] [facility] [address]: GREGORY JAMES CNM ENTERED: 12/19/24 ALAN TYPE: Rey MOR[address] DR: ORDERED: Pap Smear ----- ------- Signed (signature on file) MARISSA Chamberlain ([facility]) 12/24/24 0801 ----- ------- END OF REPORT Gregory James [facility] CYTOLOGY ORDERABLES F inal Result [facility] [address] [place] [phone] from Last 3 Months or Most Recently Relevant to Health Maintenance Insurance [employer] PPO DENTAL - HSN PARTIAL (MEDICAID) * Guarantor: Robert Mcgill Account Type Relation to Patient Date of Phone Billing Address Personal/Family Self [address] [place] [address] * Guarantor: Robert Mcgill Account Type Relation to Patient Date of Phone Billing Address Personal/Family Self [address] [place] [address] * Guarantor: Robert Mcgill Account Type Relation to Patient Date of Phone Billing Address Personal/Family Self [address] [place] [address] Care Teams Costume Cutter Relationship Specialty Start Date End Date Geraldine Hess MD [address] [place] [address] PCP - General Internal Medicine 12/07/22 Mook Singh FNP [address] [place] [address] Nurse Practitioner Family Medicine 05/22/23
== END 2025-05-06 10:53 | disposition home or self-care (01) ==
LOC: HO.US 10:52
PROVIDERS: PCP Student in an Organized Health Care Education/Training Program; Visit Provider Advanced Practice Midwife
DX: R10.20 Pelvic and perineal pain unspecified side (principal)
CPT/HCPCS: 76830; 76856

== ENCOUNTER → 2025-05-06 10:55 | Outpatient (BNV) | payer OTHER, SELFPAY | PROVIDERS: PCP Student in an Organized Health Care Education/Training Program; Visit Provider Radiology Diagnostic Radiology | DX: R10.20 Pelvic and perineal pain unspecified side (principal) | CPT/HCPCS: 76830; 76856 ==